=== PATIENT | female | born 1935 | race Caucasian/White ===

== ENCOUNTER → 2016-11-28 | Outpatient (CLI) | payer MEDICARE, BC ==
[2016-11-28 13:07] LABS: Blood Urea Nitrogen 16 mg/dL (7-17); Non-African American GFR(MDRD) >60 (>60 ml/min/1.73 sqM)
--- NOTE | 2016-11-28 14:06 | CT ---
EXAMINATION TYPE: CT abdomen w con DATE OF EXAM: 11/28/2016 1:41 PM COMPARISON: December 19, 2013 HISTORY: Mid abd pain CT DLP: 336.4 mGycm CONTRAST: CT scan of the abdomen is performed with Oral Contrast and with IV Contrast, patient injected with 10 0 mL of Omnipaque 300. FINDINGS: LUNG BASES-: No visible nodule. No infiltrate. LIVER/GB: No calcified gallstones. No space occupying hepatic lesion. Biliary tree is of normal ca liber. PANCREAS: No inflammation. No distinct mass. SPLEEN: No splenic enlargement. No lesion seen. ADRENALS: No nodule. No thickening. KIDNEYS/BLADDER: No hydronephrosis. No nephrolithiasis. No disctinct renal mass. Urinary bladder g rossly unremarkable. BOWEL: Normal appendix. Normal bowel caliber. No inflammation. LYMPH NODES: No greater than 1cm abdominal or pelvic lymph nodes are appreciated. AORTA: No significant abnormality. OSSEOUS STRUCTURES: No significant abnormality is seen. OTHER: No significant additional abnormality is seen. IMPRESSION: 1. No significant abnormality to account for the patient's symptoms.
== END ==
LOC: RADCTMAIN 12:24
PROVIDERS: ATTEND Internal Medicine
DX: R10.84 Generalized abdominal pain (principal)
CPT/HCPCS: 82565; 84520; 74160; Q9967

== ENCOUNTER 2018-08-27 12:29 | Emergency (ER) | payer MEDICARE, BC ==
[2018-08-27] MEDS ORDERED: SODIUM CHLORIDE 0.9% 500 ML 500 ML IV STA (12:48)
--- NOTE | 2018-08-27 12:54 | ED ---
General Adult HPI - General Stated complaint: POSS KIDNEY STONE Time Seen by Provider: 08/27/18 12:30 Source: RN notes reviewed - History of Present Illness Initial comments: This is an 83-year-old female presents emergency Department with left-sided back pain that radiates around to the front a little. Patient started started this morning. Patient states it is like a kidney stone. Patient states that multiple kidney stone hasn't had one for about 5 years. Patient states she got Toradol and Zofran in the ambulance and she feels much better. Patient states the pain was so bad earlier she did vomit times one. She states currently she only has a little pain in the left lower abdomen that does not hurt with palpation but she does not eat in the new pain medicines for it. Patient denies any fever chills patient denies any hematuria. Patient states this is pain. Reminiscent of all her previous kidney stones. Patient denies any chest pain difficult breathing shortness of breath. Patient denies any recent injury or trauma - Related Data Home Medications Medication Instructions Recorded Confirmed Levothyroxine Sodium [Synthroid] 125 mcg PO DAILY 12/19/13 08/27/18 Allergies Allergy/AdvReac Type Severity Reaction Status Date / Time Penicillins Allergy Severe Rash/Hives Verified 08/27/18 13:46 Review of Systems ROS Statement: Those systems with pertinent positive or pertinent negative responses have been documented in the HPI. ROS Other: All systems not noted in ROS Statement are negative. Past Medical History Past Medical History: Thyroid Disorder Additional Past Medical History / Comment(s): Hypothyroid, kidney stones History of Any Multi-Drug Resistant Organisms: None Reported Past Surgical History: Hysterectomy Past Anesthesia/Blood Transfusion Reactions: No Reported Reaction Past Psychological History: No Psychological Hx Reported Smoking Status: Never smoker Past Alcohol Use History: None Reported Past Drug Use History: None Reported General Exam - General Exam Comments Initial Comments: GENERAL: Patient is well-developed and well-nourished. Patient is nontoxic and well- hydrated and is in mild distress. ENT: Neck is soft and supple. No significant lymphadenopathy is noted. Oropharynx is clear. Moist mucous membranes. Neck has full range of motion without eliciting any pain. EYES: The sclera were anicteric and conjunctiva were pink and moist. Extraocular movements were intact and pupils were equal round and reactive to light. Eyelids were unremarkable. PULMONARY: Unlabored respirations. Good breath sounds bilaterally. No audible rales rhonchi or wheezing was noted. CARDIOVASCULAR: There is a regular rate and rhythm without any murmurs gallops or rubs. ABDOMEN: Soft and nontender with normal bowel sounds. No palpable organomegaly was noted. There is no palpable pulsatile mass. SKIN: Skin is clear with no lesions or rashes and otherwise unremarkable. NEUROLOGIC: Patient is alert and oriented x3. Cranial nerves II through XII are grossly intact. Motor and sensory are also intact. Normal speech, volume and content. Symmetrical smile. MUSCULOSKELETAL: Normal extremities with adequate strength and full range of motion. No lower extremity swelling or edema. No calf tenderness. LYMPHATICS: No significant lymphadenopathy is noted PSYCHIATRIC: Normal psychiatric evaluation. Course Vital Signs 08/27/18 12:50 Temperature 97.3 F L Pulse Rate 55 L Respiratory 18 Rate Blood Pressure 161/70 O2 Sat by Pulse 97 Oximetry Medical Decision Making - Medical Decision Making CAT scan shows hydronephrosis mildly on the right and moderately on the left. No obstruction is noted however there is a 3 mm stone in the bladder. I went back to reexamine the patient she stated her pain almost completely resolved. Patient was comfortable going home without any additional pain medicine she says she'll take Motrin and Tylenol at home if she has anymore pain. She will return if there is any severe pain or vomiting. - Lab Data Result diagrams: 08/27/18 12:45 08/27/18 12:45 Lab Results 08/27/18 08/27/18 08/27/18 Range/Units 12:45 12:45 12:45 WBC 6.6 (3.8-10.6) k/uL RBC 4.30 (3.80-5.40) m/uL Hgb 13.7 (11.4-16.0) gm/dL Hct 41.3 (34.0-46.0) % MCV 95.9 (80.0-100.0) fL MCH 31.8 (25.0-35.0) pg MCHC 33.1 (31.0-37.0) g/dL RDW 12.9 (11.5-15.5) % Plt Count 241 (150-450) k/uL Neutrophils % 79 % Lymphocytes % 14 % Monocytes % 4 % Eosinophils % 2 % Basophils % 0 % Neutrophils # 5.3 (1.3-7.7) k/uL Lymphocytes # 0.9 L (1.0-4.8) k/uL Monocytes # 0.3 (0-1.0) k/uL Eosinophils # 0.1 (0-0.7) k/uL Basophils # 0.0 (0-0.2) k/uL Sodium 139 (137-145) mmol/L Potassium 4.9 (3.5-5.1) mmol/L Chloride 108 H (98-107) mmol/L Carbon Dioxide 25 (22-30) mmol/L Anion Gap 6 mmol/L BUN 19 H (7-17) mg/dL Creatinine 0.67 (0.52-1.04) mg/dL Est GFR (CKD-EPI)AfAm >90 (>60 ml/min/1.73 sqM) Est GFR (CKD-EPI)NonAf 82 (>60 ml/min/1.73 sqM) Glucose 126 H (74-99) mg/dL Calcium 8.7 (8.4-10.2) mg/dL Total Bilirubin 0.5 (0.2-1.3) mg/dL AST 19 (14-36) U/L ALT 28 (9-52) U/L Alkaline Phosphatase 50 (38-126) U/L Total Protein 6.1 L (6.3-8.2) g/dL Albumin 3.6 (3.5-5.0) g/dL Amylase 85 (30-110) U/L Lipase 249 (23-300) U/L Urine Color Yellow Urine Appearance Clear (Clear) Urine pH 6.0 (5.0-8.0) Ur Specific [place] 1.016 (1.001-1.035) Urine Protein Negative (Negative) Urine Glucose (UA) Negative (Negative) Urine Ketones Negative (Negative) Urine Blood Small H (Negative) Urine Nitrite Negative (Negative) Urine Bilirubin Negative (Negative) Urine Urobilinogen <2.0 (<2.0) mg/dL Ur Leukocyte Esterase Trace H (Negative) Urine RBC 46 H (0-5) /hpf Urine WBC 3 (0-5) /hpf Ur Squamous Epith Cells <1 (0-4) /hpf Hyaline Casts 1 (0-2) /lpf Urine Mucus Rare H (None) /hpf Disposition Clinical Impression: Renal colic on left side Disposition: HOME SELF-CARE Condition: Good Instructions: Renal Colic (ED) Is patient prescribed a controlled substance at d/c from ED?: No Referrals: Codi Mercedes MD [Primary Care Provider] - 1-2 days Time of Disposition: 14:37
[2018-08-27 12:57] VITALS: RESP 18; TEMP 97.3
[2018-08-27 13:16] LABS: Basophils % (A) 0 %; Eosinophils # (A) 0.1 k/uL (0-0.7); Eosinophils % (A) 2 %; HCT 41.3 % (34.0-46.0); HGB 13.7 gm/dL (11.4-16.0); Lymphocytes # (A) 0.9 k/uL (1.0-4.8); Lymphocytes % (A) 14 %; MCH 31.8 pg (25.0-35.0); MCHC 33.1 g/dL (31.0-37.0); MCV 95.9 fL (80.0-100.0); Mean Platelet Volume 6.3; Monocytes # (A) 0.3 k/uL (0-1.0); Monocytes % (A) 4 %; Neutrophils # (A) 5.3 k/uL (1.3-7.7); Neutrophils % (A) 79 %; Platelet Count 241 k/uL (150-450); RDW 12.9 % (11.5-15.5); WBC 6.6 k/uL (3.8-10.6)
[2018-08-27 13:27] LABS: ALT 28 U/L (9-52); AST 19 U/L (14-36); Albumin 3.6 g/dL (3.5-5.0); Alkaline Phosphatase 50 U/L (38-126); Amylase 85 U/L (30-110); Anion Gap 6 mmol/L; Blood Urea Nitrogen 19 mg/dL (7-17); Calcium 8.7 mg/dL (8.4-10.2); Carbon Dioxide 25 mmol/L (22-30); Chloride 108 mmol/L (98-107); Glucose 126 mg/dL (74-99); Lipase 249 U/L (23-300); Potassium 4.9 mmol/L (3.5-5.1); Sodium 139 mmol/L (137-145); Total Bilirubin 0.5 mg/dL (0.2-1.3); Total Protein 6.1 g/dL (6.3-8.2)
[2018-08-27 13:35] LABS: Appearance,Urine Clear (Clear); Bilirubin,Urine Negative (Negative); Blood,Urine Small (Negative); Color,Urine Yellow; Glucose,Urine (UA) Negative (Negative); Hyaline Casts,Urine 1 /lpf (0-2); Ketones,Urine Negative (Negative); Leukocyte Esterase,Urine Trace (Negative); Mucus,Urine Rare /hpf; Nitrite,Urine Negative (Negative); Protein,Urine Negative (Negative); RBC,Urine 46 /hpf (0-5); Specific Gravity,Urine 1.016 (1.001-1.035); Squamous Epithelial Cell,Urine <1 /hpf (0-4); Urobilinogen,Urine <2.0 mg/dL (<2.0); WBC,Urine 3 /hpf (0-5)
--- NOTE | 2018-08-27 14:01 | CT ---
EXAMINATION TYPE: CT abdomen pelvis wo con DATE OF EXAM: 08/27/2018 COMPARISON: 11/28/2016 INDICATION: Left flank pain DLP: 321.7 mGycm, Automated exposure control for dose reduction was used. CONTRAST: 0 mL of Isovue 300. Study performed without Oral Contrast TECHNIQUE: Axial images were obtained from above the diaphragm to the pubic rami in the axial plane a t 5 mm thick sections. Reconstructed images are reviewed on the computer in the coronal plane. FINDINGS: Limited CT sections are obtained the lung bases. There is a 0.7 cm density in the posterior right agatha ng base with eccentric calcification. This is not a simple granuloma. Short-term follow-up is recomme nded. The calcification was present previously. Density appears to be new. A small hiatal hernia is p resent.. CT ABDOMEN: Liver: Normal Spleen: Normal Pancreas: Normal Adrenal glands: The adrenal glands are normal. Gallbladder: Normal Kidneys: No masses are evident. There is a moderate left hydronephrosis. Mild right hydronephrosis ma y be present. Hydroureter is not identified. Multiple bilateral renal stones are evident without obst ruction. Aorta: Vascular calcification is within the aorta. Inferior vena cava: Normal. CT PELVIS: Loops of bowel within the abdomen and pelvis are normal. Study is without oral contrast limiting the evaluation. Appendix: Normal as visualized. Urinary bladder: There is a 0.3 cm calcification in the inferior lateral left urinary bladder. A rece nt passage of a renal stone should be considered. Genitourinary structures: Uterus and ovaries are not identified. Osseous structures: No suspicious lytic or sclerotic lesions. Facet degenerative changes are through the lumbar spine. IMPRESSIONS: 1. There is mild right and moderate left hydronephrosis. Etiology for obstruction is not evident. Ho wever, calcification within the inferior left urinary bladder could indicate recent passage of a trina l or ureteral stone. 2. Multiple bilateral nonobstructing renal stones. 3. Moderate left and mild right hydronephrosis. 4. A 0.7 cm density with eccentric calcification posterior right lung base. Short-term follow-up is r ecommended with CT chest in 3 months.
--- NOTE | 2018-08-27 14:12 | XR ---
EXAMINATION TYPE: XR KUB DATE OF EXAM: 08/27/2018 CLINICAL DATA: 83-year-old female with abdominal pain, [facility] COMPARISON: 04/01/2014 FINDINGS: Lung bases are clear. No evidence for free intraperitoneal air. Vascular calcifications in the pelvis. Bilateral renal calculi described on CT of the same day not we ll appreciated radiographically. Nonobstructive bowel gas pattern. Mild to moderate stool burden. No dilated small bowel or air-fluid levels. Degenerative changes throughout the spine. Mild degenerative changes at the hips. IMPRESSION: 1. Bilateral renal calculi not well appreciated radiographically. 2. No evidence for bowel obstruction or free air.
[2018-08-27 14:50] VITALS: BP 160/70; PULSE 58
== END 2018-08-27 14:50 | disposition home or self-care (01) ==
LOC: EC 12:29
DX: N23 Unspecified renal colic (principal); N13.2 Hydronephrosis with renal and ureteral calculous obstruction; E03.9 Hypothyroidism, unspecified; Z88.0 Allergy status to penicillin; Z79.899 Other long term (current) drug therapy; Z90.710 Acquired absence of both cervix and uterus
CPT/HCPCS: 36415; 74018; 74176; 80053; 81001; 82150; 83690; 85025; 96360; 96361; 99285

== ENCOUNTER → 2021-09-01 | Outpatient (CLI) | payer MEDICARE, BC ==
--- NOTE | 2021-09-01 14:22 | US ---
EXAMINATION TYPE: US pelvis complete transvag DATE OF EXAM: 09/01/2021 COMPARISON: CT 08/27/2018 CLINICAL HISTORY: 86-year-old female N95.0 postmenopausal Bleeding. PMB. Patient states she had her UT removed, but doesn't know if she still has her ovaries. TECHNIQUE: Transabdominal sonographic images of the pelvis were acquired. Transvaginal sonographic i mages were medically necessary to better assess the following anatomy: Ovaries Date of LMP: Unknown FINDINGS: : 1. Uterus: Surgically absent 2. Endometrium: Surgically absent 3. Right Ovary: Obscured by overlying bowel gas vs surgically absent 4. Left Ovary: Obscured by overlying bowel gas vs surgically absent 5. Bilateral Adnexa: Peristalsing bowel 6. Posterior cul-de-sac: No free fluid 7. Vagina: Echogenic shadowing area measuring 1.0 x 1.3 x 0.9 cm at the vaginal cuff. IMPRESSION: 1. Echogenic shadowing area measuring 1.3 cm at the vaginal cuff probably representing some scar tiss ue. No peristalsis to suggest bowel. Given the patient's vaginal bleeding, recommend direct visualiza tion and consideration to CT of the pelvis to exclude any newly developing abnormality such as neopla sm compared to the 08/27/2018 CT. 2. Neither ovary could be visualized. 3. No pelvic free fluid.
== END | disposition home or self-care (01) ==
LOC: RADUSWWP 10:48
PROVIDERS: ATTEND Internal Medicine
DX: N93.8 Other specified abnormal uterine and vaginal bleeding (principal)
CPT/HCPCS: 76830; 76856

== ENCOUNTER 2023-02-15 13:17 | Emergency (ER) | payer MEDICARE, BC ==
[2023-02-15 13:43] VITALS: TEMP 98.2
--- NOTE | 2023-02-15 14:38 | ED ---
Extremity Problem HPI - General Chief complaint: Extremity Problem,Nontraumatic Stated complaint: Rt foot injury Time Seen by Provider: 02/15/23 14:12 Source: patient, RN notes reviewed Mode of arrival: ambulatory Limitations: no limitations - History of Present Illness Initial comments: 87-year-old female presents emergency department for right foot pain. Patient states has been bothersome since Sunday. Patient states it hurts more in the morning. She states is swollen, slightly red and medial aspect. No trauma no fevers or chills no history of gout denies any calf pain no calf swelling. - Related Data Home Medications Medication Instructions Recorded Confirmed Levothyroxine Sodium [Synthroid] 125 mcg PO DAILY 12/19/13 08/27/18 Allergies Allergy/AdvReac Type Severity Reaction Status Date / Time Penicillins Allergy Severe Rash/Hives Verified 02/15/23 13:42 Review of Systems ROS Statement: Those systems with pertinent positive or pertinent negative responses have been documented in the HPI. ROS Other: All systems not noted in ROS Statement are negative. Past Medical History Past Medical History: Thyroid Disorder Additional Past Medical History / Comment(s): Hypothyroid, kidney stones History of Any Multi-Drug Resistant Organisms: None Reported Past Surgical History: Hysterectomy Past Anesthesia/Blood Transfusion Reactions: No Reported Reaction Past Psychological History: No Psychological Hx Reported Smoking Status: Never smoker Past Alcohol Use History: None Reported Past Drug Use History: None Reported General Exam Limitations: no limitations General appearance: alert, in no apparent distress Head exam: Present: atraumatic, normocephalic, normal inspection Respiratory exam: Present: normal lung sounds bilaterally. Absent: respiratory distress, wheezes, rales, rhonchi, stridor Cardiovascular Exam: Present: regular rate, normal rhythm, normal heart sounds. Absent: systolic murmur, diastolic murmur, rubs, gallop, clicks Extremities exam: Present: other (Right foot there is mild tenderness on the medial aspect there is an area of erythema and increased warmth there pedal pulses equal bilaterally, cap refill less than 2 seconds full range of motion of the foot, ankle ). Absent: calf tenderness Course Vital Signs 02/15/23 13:39 Temperature 98.2 F Pulse Rate 51 L Respiratory 20 Rate Blood Pressure 150/58 O2 Sat by Pulse 98 Oximetry Medical Decision Making - Medical Decision Making Was pt. sent in by a medical professional or institution (KAJAL Gordon, AIR QUALITY TECHNICIAN, urgent care, hospital, or intermediate...) When possible be specific @ -No Did you speak to anyone other than the patient for history (EMS, parent, family, police, friend...)? What history was obtained from this source @ -No Did you review nursing and triage notes (agree or disagree)? Why? @ -I reviewed and agree with nursing and triage notes Were old charts reviewed (outside hosp., previous admission, EMS record, old EKG, old radiological studies, urgent care reports/EKG's, intermediate records)? Report findings @ -No old charts were reviewed Differential Diagnosis (chest pain, altered mental status, abdominal pain women, abdominal pain men, vaginal bleeding, weakness, fever, dyspnea, syncope, headache, dizziness, GI bleed, back pain, seizure, CVA, palpatations, mental health, musculoskeletal)? @ -Gout, pseudogout, inflammatory arthritis, cellulitis EKG interpreted by me (3pts min.). @ -None X-rays interpreted by me (1pt min.). @ -X-ray shows no acute fracture dislocation foot CT interpreted by me (1pt min.). @ -None done U/S interpreted by me (1pt. min.). @ -None done What testing was considered but not performed or refused? (CT, X-rays, U/S, labs)? Why? @ -None What meds were considered but not given or refused? Why? @ -None Did you discuss the management of the patient with other professionals (professionals i.e. KAJAL Gordon, AIR QUALITY TECHNICIAN, lab, RT, psych nurse, social media marketing specialist, box stacker, teacher, first aid officer, welfare case worker)? Give summary @ -No Was smoking cessation discussed for >3mins.? @ -No Was critical care preformed (if so, how long)? @ -No Were there social determinants of health that impacted care today? How? (Homelessness, low income, unemployed, alcoholism, drug addiction, transportation, low edu. Level, literacy, decrease access to med. care, intermediate, rehab)? @ -No Was there de-escalation of care discussed even if they declined (Discuss DNR or withdrawal of care, Hospice)? DNR status @ -No What co-morbidities impacted this encounter? (DM, HTN, Smoking, COPD, CAD, Cancer, CVA, ARF, Chemo, Hep., AIDS, mental health diagnosis, sleep apnea, morbid obesity)? @ -None Was patient admitted / discharged? Hospital course, mention meds given and route, prescriptions, significant lab abnormalities, going to OR and other pertinent info. @ -Discharged patient's laboratory studies are unremarkable patient may have inflammatory arthritis discussed possibility of pseudo-gout. Patient discharged in stable condition. Return parameters were discussed. Undiagnosed new problem with uncertain prognosis? @ -No Drug Therapy requiring intensive monitoring for toxicity (Heparin, Nitro, Insulin, Cardizem)? @ -No Were any procedures done? @ -No Diagnosis/symptom? @ -Inflammatory arthritis, Acute, or Chronic, or Acute on Chronic? @ -Acute Uncomplicated (without systemic symptoms) or Complicated (systemic symptoms)? @ -Uncomplicated Side effects of treatment? @ -No Exacerbation, Progression, or Severe Exacerbation? @ -No Poses a threat to life or bodily function? How? (Chest pain, [place], [place], pneumonia, PE, COPD, DKA, ARF, appy, cholecystitis, CVA, Diverticulitis, Homicidal, Suicidal, threat to staff... and all critical care pts) @ -No - Lab Data Result diagrams: 02/15/23 14:35 02/15/23 14:35 Lab Results 02/15/23 02/15/23 Range/Units 14:35 14:35 WBC 6.1 (3.8-10.6) k/uL RBC 3.82 (3.80-5.40) m/uL Hgb 12.1 (11.4-16.0) gm/dL Hct 36.0 (34.0-46.0) % MCV 94.2 (80.0-100.0) fL MCH 31.7 (25.0-35.0) pg MCHC 33.7 (31.0-37.0) g/dL RDW 13.4 (11.5-15.5) % Plt Count 289 (150-450) k/uL MPV 6.6 Neutrophils % 63 % Lymphocytes % 25 % Monocytes % 7 % Eosinophils % 3 % Basophils % 1 % Neutrophils # 3.9 (1.3-7.7) k/uL Lymphocytes # 1.6 (1.0-4.8) k/uL Monocytes # 0.4 (0-1.0) k/uL Eosinophils # 0.2 (0-0.7) k/uL Basophils # 0.0 (0-0.2) k/uL Sodium 135 L (137-145) mmol/L Potassium 4.3 (3.5-5.1) mmol/L Chloride 105 (98-107) mmol/L Carbon Dioxide 26 (22-30) mmol/L Anion Gap 4 mmol/L BUN 17 (7-17) mg/dL Creatinine 0.80 (0.52-1.04) mg/dL Est GFR (CKD-EPI)AfAm 77 (>60 ml/min/1.73 sqM) Est GFR (CKD-EPI)NonAf 67 (>60 ml/min/1.73 sqM) Glucose 96 (74-99) mg/dL Uric Acid 3.8 (3.7-7.4) mg/dL Calcium 8.8 (8.4-10.2) mg/dL Total Bilirubin 0.4 (0.2-1.3) mg/dL AST 27 (14-36) U/L ALT 23 (4-34) U/L Alkaline Phosphatase 67 (38-126) U/L C-Reactive Protein 2.0 H (<1.0) mg/dL Total Protein 6.0 L (6.3-8.2) g/dL Albumin 3.2 L (3.5-5.0) g/dL Disposition Clinical Impression: Inflammatory arthritis Disposition: HOME SELF-CARE Condition: Stable Instructions (If sedation given, give patient instructions): Gout (ED), Arthritis (ED) Additional Instructions: Please return to the Emergency Department if symptoms worsen or any other concerns. Is patient prescribed a controlled substance at d/c from ED?: No Referrals: Codi Mercedes MD [Primary Care Provider] - 1-2 days Time of Disposition: 16:03
[2023-02-15 14:52] LABS: Basophils % (A) 1 %; Eosinophils # (A) 0.2 k/uL (0-0.7); Eosinophils % (A) 3 %; HGB 12.1 gm/dL (11.4-16.0); Lymphocytes # (A) 1.6 k/uL (1.0-4.8); Lymphocytes % (A) 25 %; MCH 31.7 pg (25.0-35.0); MCHC 33.7 g/dL (31.0-37.0); MCV 94.2 fL (80.0-100.0); Mean Platelet Volume 6.6; Monocytes # (A) 0.4 k/uL (0-1.0); Monocytes % (A) 7 %; Neutrophils # (A) 3.9 k/uL (1.3-7.7); Neutrophils % (A) 63 %; Platelet Count 289 k/uL (150-450); RBC 3.82 m/uL (3.80-5.40); RDW 13.4 % (11.5-15.5); WBC 6.1 k/uL (3.8-10.6)
--- NOTE | 2023-02-15 14:57 | XR ---
EXAMINATION TYPE: XR foot complete RT DATE OF EXAM: 02/15/2023 COMPARISON: NONE HISTORY: Pain TECHNIQUE: Frontal, lateral and oblique images of the right foot are obtained. FINDINGS: There is no acute fracture/dislocation evident. No osseous erosions. Hammertoe deformities of the second through fourth digits with PIP flexion. No significant joint space narrowing. The over lying soft tissue appears unremarkable. IMPRESSION: There is no acute fracture or dislocation seen.
[2023-02-15 15:11] LABS: ALT 23 U/L (4-34); AST 27 U/L (14-36); African American GFR (CKD) 77 (>60 ml/min/1.73 sqM); Albumin 3.2 g/dL (3.5-5.0); Alkaline Phosphatase 67 U/L (38-126); Anion Gap 4 mmol/L; Blood Urea Nitrogen 17 mg/dL (7-17); Calcium 8.8 mg/dL (8.4-10.2); Carbon Dioxide 26 mmol/L (22-30); Chloride 105 mmol/L (98-107); Glucose 96 mg/dL (74-99); Non-African American GFR(CKD) 67 (>60 ml/min/1.73 sqM); Potassium 4.3 mmol/L (3.5-5.1); Sodium 135 mmol/L (137-145); Total Bilirubin 0.4 mg/dL (0.2-1.3); Uric Acid 3.8 mg/dL (3.7-7.4)
[2023-02-15 16:13] VITALS: BP 147/60; PULSE 52; RESP 18
== END 2023-02-15 16:09 | disposition home or self-care (01) ==
LOC: EC 13:17
DX: M00.9 Pyogenic arthritis, unspecified (principal); E07.9 Disorder of thyroid, unspecified; Z88.0 Allergy status to penicillin; Z79.890 Hormone replacement therapy
CPT/HCPCS: 36415; 80053; 84550; 85025; 86140; 99284

== ENCOUNTER 2023-03-30 10:37 | Inpatient (IN) | payer MEDICARE, BC ==
[2023-03-30 10:41] LABS: Glucose,Whole Blood 108 mg/dL (70-110)
--- NOTE | 2023-03-30 10:56 | CT ---
EXAMINATION TYPE: CT brain wo con DATE OF EXAM: 03/30/2023 COMPARISON: None HISTORY: Code stroke, dysarthria, confusion CT DLP: 1177.[address] of the brain was performed. The ventricles, basal cisterns and sulci overlying the cerebral convexities demonstrate mild enlargem ent. There is no evidence for intracranial hemorrhage or sulcal effacement. There is decreased attenuation about the periventricular white matter and deep white matter of both c erebral hemispheres, compatible with chronic small vessel ischemia. Differential diagnosis does inclu de demyelination. No mass effects are seen.No midline shift. Physiologic calcification left basal ganglia. Osseous calvarium is intact. If symptoms persist consider MRI. IMPRESSION: 1. Age related atrophic and chronic small vessel ischemic change without acute intracranial process s een at this time.
[2023-03-30 11:02] LABS: Basophils % (A) 1 %; Eosinophils # (A) 0.1 k/uL (0-0.7); Eosinophils % (A) 2 %; HCT 35.1 % (34.0-46.0); Lymphocytes # (A) 1.5 k/uL (1.0-4.8); Lymphocytes % (A) 23 %; MCH 31.5 pg (25.0-35.0); MCHC 34.3 g/dL (31.0-37.0); MCV 91.8 fL (80.0-100.0); Monocytes # (A) 0.4 k/uL (0-1.0); Monocytes % (A) 5 %; Neutrophils # (A) 4.4 k/uL (1.3-7.7); Neutrophils % (A) 68 %; Platelet Count 275 k/uL (150-450); RBC 3.82 m/uL (3.80-5.40); RDW 13.1 % (11.5-15.5); WBC 6.4 k/uL (3.8-10.6)
--- NOTE | 2023-03-30 11:12 | XR ---
EXAMINATION TYPE: XR chest 2V DATE OF EXAM: 03/30/2023 COMPARISON: NONE HISTORY: Shortness of breath TECHNIQUE: Frontal and lateral views of the chest are obtained. FINDINGS: Scattered senescent parenchymal changes noted. Hyperinflation compatible with COPD. No evidence for infiltrate. No evidence for atelectasis. Heart size is stable. Mediastinal structures are stable and grossly unremarkable. No evidence for hilar prominence. Degenerative changes dorsal spine. IMPRESSION: 1. No evidence for acute pulmonary disease.
[2023-03-30 11:13] LABS: ALT 34 U/L (4-34); AST 35 U/L (14-36); African American GFR (CKD) >90 (>60 ml/min/1.73 sqM); Albumin 3.4 g/dL (3.5-5.0); Alkaline Phosphatase 88 U/L (38-126); Anion Gap 8 mmol/L; Blood Urea Nitrogen 16 mg/dL (7-17); Calcium 8.6 mg/dL (8.4-10.2); Carbon Dioxide 23 mmol/L (22-30); Chloride 101 mmol/L (98-107); Creatine Kinase 97 U/L (30-135); Glucose 100 mg/dL (74-99); Non-African American GFR(CKD) 86 (>60 ml/min/1.73 sqM); Partial Thromboplastin Time 31.9 sec (22.0-30.0); Potassium 4.5 mmol/L (3.5-5.1); Prothrombin Time 10.1 sec (9.0-12.0); Sodium 132 mmol/L (137-145); Total Bilirubin 0.8 mg/dL (0.2-1.3); Total Protein 6.3 g/dL (6.3-8.2)
--- NOTE | 2023-03-30 11:37 | ED ---
General Adult HPI - General Chief complaint: Neuro Symptoms/Deficit Stated complaint: POSS CVA Time Seen by Provider: 03/30/23 10:45 Source: EMS Mode of arrival: EMS Limitations: no limitations - History of Present Illness Initial comments: 88-year-old female past history of hypothyroid who presents to the emergency department with altered mental status. She lives with her daughter. It is reported to the patient's normally communicates without difficulty and ambulates on her own. She went about her normal self last night however the time is unknown. Today the patient seemed confused and the confusion seemed to be getting worse. The daughter called EMS and brought the patient to the hospital. There was concern for stroke as the patient has some aphasia. No history of stroke. No lateralizing weakness. She is not on any blood thinners. No history of any head trauma. No fevers. Patient states that she knows what she wants to say however it is not coming out correctly. She recently was started on indomethacin for a gout flare on the seventh. No other alleviating, precipitating modifying factors - Related Data Home Medications Medication Instructions Recorded Confirmed Indomethacin [Indocin] 50 mg PO BID 03/30/23 03/30/23 Levothyroxine Sodium [Synthroid] 112 mcg PO DIRECTED 03/30/23 03/30/23 Allergies Allergy/AdvReac Type Severity Reaction Status Date / Time Penicillins Allergy Severe Rash/Hives Verified 03/30/23 12:01 Review of Systems ROS Statement: Those systems with pertinent positive or pertinent negative responses have been documented in the HPI. ROS Other: All systems not noted in ROS Statement are negative. Past Medical History Past Medical History: Thyroid Disorder Additional Past Medical History / Comment(s): Hypothyroid, kidney stones History of Any Multi-Drug Resistant Organisms: None Reported Past Surgical History: Hysterectomy Past Anesthesia/Blood Transfusion Reactions: No Reported Reaction Past Psychological History: No Psychological Hx Reported Smoking Status: Never smoker Past Alcohol Use History: None Reported Past Drug Use History: None Reported General Exam Limitations: altered mental status General appearance: alert, in no apparent distress Head exam: Present: atraumatic, normocephalic, normal inspection Eye exam: Present: normal appearance, PERRL, EOMI. Absent: scleral icterus, conjunctival injection, periorbital swelling ENT exam: Present: normal exam, mucous membranes moist Neck exam: Present: normal inspection. Absent: tenderness, meningismus, lymphadenopathy Respiratory exam: Present: normal lung sounds bilaterally. Absent: respiratory distress, wheezes, rales, rhonchi, stridor Cardiovascular Exam: Present: regular rate, normal rhythm, normal heart sounds. Absent: systolic murmur, diastolic murmur, rubs, gallop, clicks GI/Abdominal exam: Present: soft, normal bowel sounds. Absent: distended, tenderness, guarding, rebound, rigid Extremities exam: Present: normal inspection, full ROM, normal capillary refill. Absent: tenderness, pedal edema, joint swelling, calf tenderness Back exam: Present: normal inspection Neurological exam: Present: alert, altered, CN II-XII intact, other (Oriented only to self. Has equal pipe fitter street service strength bilaterally. Face is symmetric. Mild dysarthria. Significant expressive aphasia) Psychiatric exam: Present: normal affect, normal mood Skin exam: Present: warm, dry, intact, normal color. Absent: rash Course Vital Signs 03/30/23 03/30/23 03/30/23 10:41 11:30 12:00 Temperature 98.0 F Pulse Rate 61 60 66 Respiratory 18 Rate Blood Pressure 199/73 167/73 185/75 O2 Sat by Pulse 98 97 99 Oximetry 03/30/23 03/30/23 12:30 14:37 Temperature 98.2 F Pulse Rate 68 69 Respiratory 16 Rate Blood Pressure 175/87 173/78 O2 Sat by Pulse 97 96 Oximetry Medical Decision Making - Medical Decision Making Was pt. sent in by a medical professional or institution (KAJAL Gordon, [employer]PER[employer], urgent care, hospital, or [place] health care facility...) When possible be specific @ -No Did you speak to anyone other than the patient for history (EMS, parent, family, police, friend...)? What history was obtained from this source @ -EMS provided history as well as the patient's son Did you review nursing and triage notes (agree or disagree)? Why? @ -I reviewed and agree with nursing and triage notes Were old charts reviewed (outside hosp., previous admission, EMS record, old EKG, old radiological studies, urgent care reports/EKG's, [place] health care facility records)? Report findings @ -No old charts were reviewed Differential Diagnosis (chest pain, altered mental status, abdominal pain women, abdominal pain men, vaginal bleeding, weakness, fever, dyspnea, syncope, headache, dizziness, GI bleed, back pain, seizure, CVA, palpatations, mental health, musculoskeletal)? @ -Differential Altered Mental Status: Hypoglycemia, DKA, hypercapnia, ETOH, overdose, CO poisoning, trauma, myxedema coma, HTN encephalopathy, infection, encephalitis, psychosis, intercranial hemorrhage, hepatic encephalopathy, meningitis, CVA, this is not meant to be an all-inclusive list EKG interpreted by me (3pts min.). @ -Yes and demonstrates sinus rhythm with rate 62. HI interval 216. QRS 86. QTC of 437. No acute ST segment elevation or depression X-rays interpreted by me (1pt min.). @ -Yes and demonstrates no acute process CT interpreted by me (1pt min.). @ -Yes and demonstrates no acute intracranial process U/S interpreted by me (1pt. min.). @ -None done What testing was considered but not performed or refused? (CT, X-rays, U/S, labs)? Why? @ -None What meds were considered but not given or refused? Why? @ -None Did you discuss the management of the patient with other professionals (professionals i.e. , PA, [employer], lab, RT, psych nurse, social media marketing specialist, bullion weigher, teacher, juvenile officer, counter caser)? Give summary @ -Spoke with Dr. Parra in regards to the patient's symptoms. He does evaluate the patient's CT and states that she has no large vessel occlusion. Treatment will be aspirin and statin Was smoking cessation discussed for >3mins.? @ -No Was critical care preformed (if so, how long)? @ -Yes, 35 minutes for stroke activation Were there social determinants of health that impacted care today? How? (Homelessness, low income, unemployed, alcoholism, drug addiction, transportation, low edu. Level, literacy, decrease access to med. care, half-way, rehab)? @ -No Was there de-escalation of care discussed even if they declined (Discuss DNR or withdrawal of care, Hospice)? DNR status @ -No What co-morbidities impacted this encounter? (DM, HTN, Smoking, COPD, CAD, Cancer, CVA, ARF, Chemo, Hep., AIDS, mental health diagnosis, sleep apnea, morbi d obesity)? @ -Hypothyroid Was patient admitted / discharged? Hospital course, mention meds given and route, prescriptions, significant lab abnormalities, going to OR and other pertinent info. @ -On arrival patient was evaluated in the hallway. She does have expressive aphasia with unknown last known well. We did activate a code stroke. Patient does go for CT and CT angiography of her head. I spoke with Dr. Parra in regards to the patient. Laboratory studies are conducted. CT is negative for acute stroke. Recommended admission for antibiotics for her abnormal UA. Recommend neurology consultation for aphasia with concern for CVA. Patient is given a [place] as indomethacin will be avoided due to recent alteration in level of consciousness after the medication was started. Patient and family at bedside were agreeable to this and the patient is admitted in stable condition Undiagnosed new problem with uncertain prognosis? @ -Yes Drug Therapy requiring intensive monitoring for toxicity (Heparin, Nitro, Insulin, Cardizem)? @ -No Were any procedures done? @ -No Diagnosis/symptom? @ -Acute expressive aphasia, suspected CVA, accelerated hypertension Acute, or Chronic, or Acute on Chronic? @ -Acute Uncomplicated (without systemic symptoms) or Complicated (systemic symptoms)? @ -Complicated Side effects of treatment? @ -No Exacerbation, Progression, or Severe Exacerbation? @ -No Poses a threat to life or bodily function? How? (Chest pain, USA, CO, pneumonia, PE, COPD, DKA, ARF, appy, cholecystitis, CVA, Diverticulitis, Homicidal, Suicidal, threat to staff... and all critical care pts) @ -No - Lab Data Result diagrams: 03/30/23 10:47 03/30/23 10:47 Lab Results 03/30/23 03/30/23 03/30/23 Range/Units 10:40 10:47 10:47 WBC 6.4 (3.8-10.6) k/uL RBC 3.82 (3.80-5.40) m/uL Hgb 12.0 (11.4-16.0) gm/dL Hct 35.1 (34.0-46.0) % MCV 91.8 (80.0-100.0) fL MCH 31.5 (25.0-35.0) pg MCHC 34.3 (31.0-37.0) g/dL RDW 13.1 (11.5-15.5) % Plt Count 275 (150-450) k/uL MPV 7.0 Neutrophils % 68 % Lymphocytes % 23 % Monocytes % 5 % Eosinophils % 2 % Basophils % 1 % Neutrophils # 4.4 (1.3-7.7) k/uL Lymphocytes # 1.5 (1.0-4.8) k/uL Monocytes # 0.4 (0-1.0) k/uL Eosinophils # 0.1 (0-0.7) k/uL Basophils # 0.0 (0-0.2) k/uL PT 10.1 (9.0-12.0) sec INR 1.0 (<1.2) APTT 31.9 H (22.0-30.0) sec Sodium (137-145) mmol/L Potassium (3.5-5.1) mmol/L Chloride (98-107) mmol/L Carbon Dioxide (22-30) mmol/L Anion Gap mmol/L BUN (7-17) mg/dL Creatinine (0.52-1.04) mg/dL Est GFR (CKD-EPI)AfAm (>60 ml/min/1.73 sqM) Est GFR (CKD-EPI)NonAf (>60 ml/min/1.73 sqM) Glucose (74-99) mg/dL POC Glucose (mg/dL) 108 (70-110) mg/dL POC Glu Wet Pour Mixer ID Alexandre Harris Calcium (8.4-10.2) mg/dL Total Bilirubin (0.2-1.3) mg/dL AST (14-36) U/L ALT (4-34) U/L Alkaline Phosphatase (38-126) U/L Creatine Kinase (30-135) U/L Troponin I (0.000-0.034) ng/mL Total Protein (6.3-8.2) g/dL Albumin (3.5-5.0) g/dL TSH (0.465-4.680) mIU/L Urine Color Urine Appearance (Clear) Urine pH (5.0-8.0) Ur Specific [place] (1.001-1.035) Urine Protein (Negative) Urine Glucose (UA) (Negative) Urine Ketones (Negative) Urine Blood (Negative) Urine Nitrite (Negative) Urine Bilirubin (Negative) Urine Urobilinogen (<2.0) mg/dL Ur Leukocyte Esterase (Negative) Urine RBC (0-5) /hpf Urine WBC (0-5) /hpf Urine WBC Clumps (None) /hpf Ur Squamous Epith Cells (0-4) /hpf Urine Bacteria (None) /hpf 03/30/23 03/30/23 03/30/23 Range/Units 10:47 10:47 12:15 WBC (3.8-10.6) k/uL RBC (3.80-5.40) m/uL Hgb (11.4-16.0) gm/dL Hct (34.0-46.0) % MCV (80.0-100.0) fL MCH (25.0-35.0) pg MCHC (31.0-37.0) g/dL RDW (11.5-15.5) % Plt Count (150-450) k/uL MPV Neutrophils % % Lymphocytes % % Monocytes % % Eosinophils % % Basophils % % Neutrophils # (1.3-7.7) k/uL Lymphocytes # (1.0-4.8) k/uL Monocytes # (0-1.0) k/uL Eosinophils # (0-0.7) k/uL Basophils # (0-0.2) k/uL PT (9.0-12.0) sec INR (<1.2) APTT (22.0-30.0) sec Sodium 132 L (137-145) mmol/L Potassium 4.5 (3.5-5.1) mmol/L Chloride 101 (98-107) mmol/L Carbon Dioxide 23 (22-30) mmol/L Anion Gap 8 mmol/L BUN 16 (7-17) mg/dL Creatinine 0.52 (0.52-1.04) mg/dL Est GFR (CKD-EPI)AfAm >90 (>60 ml/min/1.73 sqM) Est GFR (CKD-EPI)NonAf 86 (>60 ml/min/1.73 sqM) Glucose 100 H (74-99) mg/dL POC Glucose (mg/dL) (70-110) mg/dL POC Glu Wet Pour Mixer ID Calcium 8.6 (8.4-10.2) mg/dL Total Bilirubin 0.8 (0.2-1.3) mg/dL AST 35 (14-36) U/L ALT 34 (4-34) U/L Alkaline Phosphatase 88 (38-126) U/L Creatine Kinase 97 (30-135) U/L Troponin I <0.012 (0.000-0.034) ng/mL Total Protein 6.3 (6.3-8.2) g/dL Albumin 3.4 L (3.5-5.0) g/dL TSH 3.990 (0.465-4.680) mIU/L Urine Color Colorless Urine Appearance Cloudy H (Clear) Urine pH 6.0 (5.0-8.0) Ur Specific [place] 1.025 (1.001-1.035) Urine Protein Negative (Negative) Urine Glucose (UA) Negative (Negative) Urine Ketones Negative (Negative) Urine Blood Moderate H (Negative) Urine Nitrite Negative (Negative) Urine Bilirubin Negative (Negative) Urine Urobilinogen <2.0 (<2.0) mg/dL Ur Leukocyte Esterase Large H (Negative) Urine RBC 15 H (0-5) /hpf Urine WBC 158 H (0-5) /hpf Urine WBC Clumps Few H (None) /hpf Ur Squamous Epith Cells 1 (0-4) /hpf Urine Bacteria Rare H (None) /hpf Disposition Clinical Impression: Cerebrovascular accident (CVA), Aphasia Disposition: ADMITTED IP TO THIS [facility] Condition: Serious Is patient prescribed a controlled substance at d/c from ED?: No Time of Disposition: 13:20 Decision to Admit Reason: Admit from EC Decision Date: 03/30/23 Decision Time: 13:20
--- NOTE | 2023-03-30 11:48 | CT ---
EXAMINATION TYPE: CT angio head neck DATE OF EXAM: 03/30/2023 COMPARISON: CT brain same day HISTORY: 88-year-old female Code stroke, dysarthria, confusion. TECHNIQUE: Contiguous axial scanning of the head and neck performed with IV Contrast, patient injecte d with 100 mL of Isovue 370. Coronal/sagittal MIP reconstructions performed. 3-D reconstructions gene rated on a dedicated independent workstation. CT DLP: 346.8 mGycm Automated exposure control for dose reduction was used. FINDINGS: Neck: Possible underlying prominent but nonenlarged mediastinal lymph nodes measuring up to 9 mm. There is aberrant right subclavian artery then takes a retroesophageal course. There is a dominant right vertebral artery. The left vertebral artery has an early takeoff from the l eft subclavian artery. Both vertebral arteries are patent throughout their course. The right common carotid artery is patent. There is mild atherosclerotic change at the right carotid bifurcation with mild, less than 25% narrow ing proximal right ICA. The left common carotid artery is patent. Mild atherosclerotic change at the left carotid bifurcation with no significant narrowing at the left ICA. The patient is swallowing during this study obscuring the hypopharynx. Extensive biapical pleural-par enchymal scarring. Head: Dominant right vertebral artery. Mild narrowing distal V4 segment left vertebral artery. Mild narrowing distal basilar artery There is a hypoplastic P1 segment left HOUSETRAILER SERVICER in combination with a small but patent left posterior comm unicating artery supplying the remainder of the left posterior cerebral artery. Remainder of the posterior circulation appears patent. There is atherosclerotic change throughout the bilateral carotid siphons. Mild diffuse narrowing of t he right internal carotid artery. Hypoplastic A1 segment right anterior cerebral artery. Anterior circulation otherwise patent. IMPRESSION: NECK: 1. MILD ATHEROSCLEROTIC CHANGE AT THE BILATERAL CAROTID BIFURCATIONS. MILD, LESS THAN 25% PROXIMAL RI GHT ICA STENOSIS. 2. 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 3. Dominant right vertebral artery. 4. A few borderline sized lymph nodes in the visualized upper mediastinum measuring up to 9 mm. HEAD: 1. Mild stenosis distal V4 segment left vertebral artery and distal basilar artery. 2. Hypoplastic P1 segment left HOUSETRAILER SERVICER in combination with a small but patent left posterior communicatin g artery supplying the left HOUSETRAILER SERVICER. 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 3. Mild diffuse narrowing of the right internal carotid artery and hypoplastic A1 segment right JENNIFER. 4. No large vessel intracranial arterial occlusion or aneurysmal changes seen.
[2023-03-30 12:51] LABS: Appearance,Urine Cloudy (Clear); Bacteria,Urine Rare /hpf; Bilirubin,Urine Negative (Negative); Blood,Urine Moderate (Negative); Color,Urine Colorless; Glucose,Urine (UA) Negative (Negative); Ketones,Urine Negative (Negative); Leukocyte Esterase,Urine Large (Negative); Nitrite,Urine Negative (Negative); Protein,Urine Negative (Negative); RBC,Urine 15 /hpf (0-5); Specific Gravity,Urine 1.025 (1.001-1.035); Squamous Epithelial Cell,Urine 1 /hpf (0-4); Urobilinogen,Urine <2.0 mg/dL (<2.0); WBC,Urine 158 /hpf (0-5)
[2023-03-30] MEDS ORDERED: ASPIRIN 325 MG TAB PO STA (13:20)
[2023-03-30] MEDS ORDERED: cefTRIAXone IN SWFI 1,000 MG/10 ML SYRINGE IVP STA (13:29)
[2023-03-30] MEDS ORDERED: HYDROcodone/APAP 5-325MG 1 EACH TAB PO STA (14:17)
[2023-03-30] MEDS ORDERED: ACETAMINOPHEN TAB 500 MG TAB PO PRN (17:28)
[2023-03-30] MEDS: THIAMINE 100 MG TAB PO SCH (18:21)
--- NOTE | 2023-03-30 18:48 | XR ---
EXAMINATION TYPE: XR AP view pelvis and 2 views each hip DATE OF EXAM: 03/30/2023 COMPARISON: NONE HISTORY: 88-year-old female pain and altered mental status, confusion FINDINGS: Osteopenia. [id number] degenerative change of both hips with axial joint space narrowing and ma rginal spurring. Prominent degenerative change lower lumbar spine. Limited by the degree of osteopeni a. No displaced fracture is seen. IMPRESSION: [id number] bilateral hip OA. Limited by osteopenia. No displaced fracture seen.
--- NOTE | 2023-03-30 19:52 | HP ---
HISTORY AND PHYSICAL CHIEF COMPLAINT: Change in mental status. HISTORY OF PRESENT ILLNESS: This is an 88-year-old woman with a past medical history of multiple medical problems, admitted with confusion and change in mental status. The patient is also complaining of some back pain, which is mainly in the gluteal region. The patient was admitted for further evaluation and treatment. A CT scan of the brain did not show any acute abnormality. There is no history of any fever, rigor, or chills at this time. PAST MEDICAL HISTORY: Reviewed includes thyroid problems. Rest of the history and rest of the chart are also reviewed. HOME MEDICATIONS: Reviewed include Synthroid. ALLERGIES: Penicillin. FAMILY HISTORY: Could not be taken because of the patient's change in mental status. SOCIAL HISTORY: Could not be taken because of the patient's change in mental status. REVIEW OF SYSTEMS: Could not be taken because of the patient's change in mental status. PHYSICAL EXAMINATION: VITAL SIGNS: Pulse is 69, blood pressure 173/70, respirations 16. HEENT: Conjunctivae are normal. NECK: No jugular venous distention. CARDIOVASCULAR: S1 and S2 muffled. RESPIRATORY: Breath sounds diminished at the bases. No rhonchi. No crackles. ABDOMEN: Soft and nontender. LEGS: No edema. NERVOUS SYSTEM: Nonfocal. MUSCULOSKELETAL: Examination of the back and gluteal region, some tenderness present. SLR is negative. LABORATORY DATA: Reviewed. Sodium 132. UA, possible UTI. IMAGING STUDIES: CAT scan reviewed personally. ASSESSMENT: 1. Change in mental status with possibly acute metabolic encephalopathy. 2. Possible urinary tract infection with sepsis present on admission. 3. Back pain, possibly musculoskeletal. 4. Hypothyroidism. 5. History of nephrolithiasis. 6. History of gout. RECOMMENDATIONS AND DISCUSSION: In this 88-year-old woman presented with multiple complex medical issues, we will monitor the patient closely. Recommend to continue current medications. Continue symptomatic treatment. Otherwise, we will initiate symptomatic treatment of the pain and resume the home medications. I would also recommend x-ray of the pelvis and PT and OT evaluation. Guarded prognosis. Further recommendations to follow. The patient also had a history of gout. I would also recommend the serum uric acid. MMODL / IJN: [id number] /
[2023-03-30] MEDS: HYDROcodone/APAP 5-325MG 1 EACH TAB PO PRN (20:40)
[2023-03-30] MEDS: HEPARIN SODIUM,PORCINE 5,000 UNIT/ML 1 ML VIAL SQ SCH (20:40)
[2023-03-30] MEDS: ATORVASTATIN 80 MG TAB PO SCH (20:41)
[2023-03-30] MEDS ORDERED: INDOMETHACIN 25 MG CAP PO SCH (21:00)
--- NOTE | 2023-03-31 01:15 | P.CNNES ---
History of Present Illness Consult date: 03/30/23 Requesting physician: Yohana Torres Reason for Consult: suspected cva, encephalopathy, aphasia History of Present Illness: Patient is a 88-year-old right-handed female came to the hospital by ambulance today at 10:37 AM for possible CVA. Patient lives with her daughter. Patient's daughter states that she woke up at 8 or 9 AM and was completely disoriented, couldn't talk, couldn't make sense, couldn't understand what someone was saying to her. She would start sentence clear, but then stumble and then gets garbled. She would start sentence "I need----", and then stopped in the mid sentence. She would slur, jumble of wrong words. Patient's daughter did not notice any facial droop, any focal weakness, numbness or tingling. It appeared patient could not see well to the left side. Patient also has been complaining of left buttock pain. She does have history of kidney stones long time ago. Patient's daughter states that at baseline she is very well articulate, although she may have some word finding problems at times. She has no obvious dementia. She usually uses cane for walking started recently. Before she used to walk without any device. Patient's last known well was last night before she went to bed. EMS flow sheet not available in the chart. Vital signs arrival blood pressure 199/73, which came down to 167/73. Ulcerative 61 temperature 98.0. Blood test shows normal CBC, PT/PTT, normal CMP with sodium 132, CK 97, troponins negative, TSH normal. UA shows large amount of leukocyte Estrace, 158 WBC and moderate blood. CT head revealed age-related atrophic and chronic small vessel ischemic change without acute intracranial process seen at this time. Chest x-ray revealed no evidence for acute pulmonary disease. EKG shows sinus rhythm with first-degree AV block. Patient denies any tobacco use, no alcohol. Patient denies diabetes or hypertension. Patient does not take any antiplatelet medication at home. Patient takes levothyroxine and indomethacin for gout. Review of Systems These review of systems as per patient's family report. Constitutional: Reports weight loss, Denies chills, Denies fever Eyes: denies blurred vision, denies diplopia, denies pain Ears: bilateral: decreased hearing, deny: ear discharge, earache Ears, nose, mouth and throat: Denies headache, Denies sore throat Cardiovascular: Denies chest pain, Denies shortness of breath Respiratory: Denies cough, Denies excessive sputum Gastrointestinal: Denies abdominal pain, Denies diarrhea, Denies nausea, Denies vomiting Genitourinary: Denies dysuria, Denies hematuria Musculoskeletal: Reports low back pain, Denies myalgias, Denies neck pain Integumentary: Denies pruritus, Denies rash Neurological: Reports as per HPI Psychiatric: Denies anxiety, Denies depression Endocrine: Reports fatigue, Reports weight change Past Medical History Past Medical History: Thyroid Disorder Additional Past Medical History / Comment(s): Hypothyroid, kidney stones, gout History of Any Multi-Drug Resistant Organisms: None Reported Past Surgical History: Hysterectomy Past Anesthesia/Blood Transfusion Reactions: No Reported Reaction Past Psychological History: No Psychological Hx Reported Smoking Status: Never smoker Past Alcohol Use History: None Reported Past Drug Use History: None Reported Medications and Allergies Home Medications Medication Instructions Recorded Confirmed Type Indomethacin [Indocin] 50 mg PO BID 03/30/23 03/30/23 History Levothyroxine Sodium [Synthroid] 112 mcg PO DIRECTED 03/30/23 03/30/23 History Allergies Allergy/AdvReac Type Severity Reaction Status Date / Time Penicillins Allergy Severe Rash/Hives Verified 03/30/23 12:01 Physical Examination - Vital Signs Vital Signs: Vital Signs Temp Pulse Resp BP BP Pulse Ox 03/30/23 16:00 16 163/47 97 03/30/23 15:53 16 03/30/23 14:37 98.2 F 69 16 173/78 96 03/30/23 12:30 68 175/87 97 03/30/23 12:00 66 185/75 99 03/30/23 11:30 60 167/73 97 03/30/23 10:41 98.0 F 61 18 199/73 98 Intake and Output 03/30/23 03/30/23 03/30/23 06:59 14:59 22:59 Other: Voiding Method External Catheter Weight 59.058 kg 59.058 kg Patient is an elderly female, who appears to be complaining of significant pain in the left buttock. Patient is alert awake, but appears to be aphasic. Patient cannot name any object presented. Patient cannot repeat. Patient could not point to the ceiling or to the window. Patient has poor comprehension. Her limited speech did not have obvious dysarthria. Attention, concentration is significantly impairedand fund of knowledge cannot be assessed due to aphasia. Patient clearly denies headache. On cranial nerve examination, pupils are equal, round and reacting to light, visual combs could not be tested reliably because of patient's aphasia and poor comprehension. Extraocular muscles are intact with no nystagmus. Patient appears to have right facial droop, very subtle, although patient's family denying. Her tongue protrudes to the midline. Palatal elevation and sensation could not be tested. Shoulder shrug normal, facial sensation normal. On muscle strength testing, there is no pronator drift and the strength is normal in arms and legs distally and proximally. Deep tendon reflexes are symmetric 2+ all over and plantars downgoing. Sensory to could not be assessed because of patient's poor comprehension. Cerebellar function showed no ataxia for [id number] testing. Patient did not cooperate for [id number]-[id number] testing. Tone and bulk of muscles normal. Gait deferred.. On general examination, there is no carotid bruit or murmur, S1-S2 audible. Chest is clear on consultation. Abdomen is soft nontender. No organomegaly, bowel sounds present. Patient has edema in the right lower limb, right ankle and foot. No edema on the left side. Her right ankle, foot appears somewhat warm as compared to the left. Patient does have gout. Results - Laboratory Findings CBC and BMP: 03/30/23 10:47 03/30/23 10:47 Abnormal Lab Findings: Abnormal Labs 03/30/23 03/30/23 03/30/23 10:47 10:47 12:15 APTT 31.9 H Sodium 132 L Glucose 100 H Albumin 3.4 L Urine Appearance Cloudy H Urine Blood Moderate H Ur Leukocyte Esterase Large H Urine RBC 15 H Urine WBC 158 H Urine WBC Clumps Few H Urine Bacteria Rare H Assessment and Plan Assessment: * Acute onset of aphasia and very subtle right facial weakness. Probable acute CVA. Differential also includes metabolic encephalopathy, rule out seizures * Acute UTI * Right foot swelling, redness, probable gout, rule out cellulitis. * Acute left buttock pain, rule out hip arthritis, rule out renal stone versus lumbar radicular pain. * Gout * Hypothyroidism Plan: * MRI of the brain without contrast, evaluate for acute CVA * 2-D echo with bubble study to rule out PFO * CTA head and neck showed: Mild atherosclerotic change at the bilateral carotid bifurcation, mild less than 25% proximal right ICA stenosis. There is mild stenosis distal V4 segment left vertebral artery and distal basilar artery. Hypoplastic P1 segment left UTILIZATION MANAGER in combination with small but patent left posterior communicating artery supplying the left UTILIZATION MANAGER. 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 Mild diffuse narrowing of the right ICA and hypoplastic A1 segment right JENNIFER. * Fasting a.m. lipid panel * Hemoglobin A1c * B12, folate * Agree with starting aspirin 325 mg daily for now * If the MRI does not show any acute stroke, then would recommend urgent EEG. * Patient has acute UTI, currently on ceftriaxone. * Patient's right foot and ankle appears swollen. This could be related to gout, although consider checking ultrasound, rule out DVT. Rule out cellulitis. Will defer to IM.. * Patient also complaining of left buttock pain. Patient undergoing x-ray of the pelvis. May need to rule out renal stone versus lumbar disc disease. * Permissive hypertension for next 24-48 hours * Close neuro checks as per protocol. * Telemetry monitoring rule out any arrhythmia * DVT prophylaxis: Heparin 5000 units subcu every 12 hours * Dr. Alston will cover neurology service over the weekend. Thank you for the consult. Time with Patient: Greater than 30
[2023-03-31] MEDS: LEVOTHYROXINE 112 MCG TAB PO SCH (06:44)
[2023-03-31] MEDS: THIAMINE 100 MG TAB PO SCH ×2 (06:44→17:05)
[2023-03-31] MEDS: PANTOPRAZOLE 40 MG TABLET PO SCH (06:44)
[2023-03-31 08:41] LABS: Basophils # (A) 0.1 k/uL (0-0.2); Basophils % (A) 1 %; Eosinophils # (A) 0.1 k/uL (0-0.7); Eosinophils % (A) 2 %; HCT 36.5 % (34.0-46.0); HGB 12.2 gm/dL (11.4-16.0); Lymphocytes # (A) 1.6 k/uL (1.0-4.8); Lymphocytes % (A) 26 %; MCHC 33.3 g/dL (31.0-37.0); Mean Platelet Volume 8.2; Monocytes # (A) 0.4 k/uL (0-1.0); Monocytes % (A) 6 %; Neutrophils % (A) 63 %; Platelet Count 326 k/uL (150-450); RBC 3.93 m/uL (3.80-5.40); RDW 13.2 % (11.5-15.5); WBC 6.3 k/uL (3.8-10.6)
[2023-03-31 08:55] LABS: African American GFR (CKD) >90 (>60 ml/min/1.73 sqM); Anion Gap 9 mmol/L; Blood Urea Nitrogen 13 mg/dL (7-17); Carbon Dioxide 25 mmol/L (22-30); Chloride 97 mmol/L (98-107); Glucose 103 mg/dL (74-99); Magnesium 1.9 mg/dL (1.6-2.3); Non-African American GFR(CKD) 85 (>60 ml/min/1.73 sqM); Potassium 4.3 mmol/L (3.5-5.1); Sodium 131 mmol/L (137-145)
[2023-03-31] MEDS ORDERED: ASPIRIN 325 MG TAB PO SCH (09:00)
[2023-03-31] MEDS ORDERED: ATORVASTATIN 40 MG TAB PO SCH (09:00)
[2023-03-31] MEDS ORDERED: cefTRIAXone 1,000 MG VIAL (IM USE) IM SCH (09:00)
[2023-03-31] MEDS: HEPARIN SODIUM,PORCINE 5,000 UNIT/ML 1 ML VIAL SQ SCH ×2 (09:30→21:08)
[2023-03-31] MEDS: COLCHICINE 0.6 MG EACH PO SCH (09:31)
[2023-03-31] MEDS: PSYLLIUM HUSK 100% 6 GM PACKET PO SCH (09:38)
--- NOTE | 2023-03-31 12:49 | P.CRDCN ---
History of Present Illness Consult date: 03/31/23 Reason for Consult (text): Secondary heart block History of present illness: The patient is an 88-year-old female with no significant cardiac history, who presented to the hospital with dizziness and worsening confusion. The patient states she has been feeling unwell over the last several weeks since starting her indomethacin. She's had memory loss according to the patient's grandson as well as the patient reporting being dizzy and generalized feeling unwell. DIAGNOSTICS: Initial EKG showed sinus mechanism without ST or T-wave abnormalities Follow-up EKG at 1:46 AM showed second-degree heart block, Mobitz type I Chest x-ray showed no acute cardiopulmonary disease CT of the head and neck shows mild atherosclerotic change Lab data: WBC 6.4 hemoglobin 12.0, hematocrit 35.1, platelet 275, sodium 132, potassium 4.5, BUN 16, creatinine 0.5 to, hemoglobin A1c 5.7, magnesium 1.9, AST 35, ALT 34, troponins negative, TSH 3.9, positive for urinary tract infection REVIEW OF SYSTEMS: No fever or chills. No cough or expectoration. No erin phoresis. Patient denies headache, dizziness, blurred vision, double vision. Patient denies any stomach discomfort. No nausea, vomiting. No hematochezia. No hematemesis. Denies any black stools or blood in his stools. Denies dysuria or hematuria. No muscle weakness or numbness. Positive for dizziness. Positive for confusion PHYSICAL EXAMINATION: This is a 88-year-old female in no apparent distress at the time of my examination. HEENT: Head is atraumatic, normocephalic. Pupils are equal, round. Sclerae anicteric. Conjunctivae are clear. Mucous membranes of the mouth are moist. Neck is supple. There is no jugular venous distention. No carotid bruit is heard. CHEST EXAMINATION: Lungs are clear to auscultation. No chest wall tenderness is noted on palpation or with deep breathing. HEART EXAMINATION: Heart regular rate and rhythm. S1, S2 heard. No murmurs, gallops or rub. ABDOMEN: Soft, nontender. Bowel sounds are heard. No organomegaly noted. EXTREMITIES: 2+ peripheral pulses with no evidence of peripheral edema and no calf tenderness noted. NEUROLOGIC EXAMINATION: Patient is awake, alert and oriented x2. FINAL ASSESSMENT AND PLAN: Acute mental status change Dizziness, secondary to indomethacin versus second-degree heart block Second-degree heart block, overnight, no evidence during daytime hours History gout PLAN: Discontinue indomethacin Start colchicine for gout Continue to monitor on telemetry Consideration for pacemaker implant Further recommendations to be based on clinical course I am dictating on behalf of Dr Joseluis Graves's history/physical and assessment/pl an. Past Medical History Past Medical History: Thyroid Disorder Additional Past Medical History / Comment(s): Hypothyroid, kidney stones, gout History of Any Multi-Drug Resistant Organisms: None Reported Past Surgical History: Hysterectomy Past Anesthesia/Blood Transfusion Reactions: No Reported Reaction Past Psychological History: No Psychological Hx Reported Smoking Status: Never smoker Past Alcohol Use History: None Reported Past Drug Use History: None Reported Medications and Allergies Home Medications Medication Instructions Recorded Confirmed Type Indomethacin [Indocin] 50 mg PO BID 03/30/23 03/30/23 History Levothyroxine Sodium [Synthroid] 112 mcg PO DIRECTED 03/30/23 03/30/23 History Allergies Allergy/AdvReac Type Severity Reaction Status Date / Time Penicillins Allergy Severe Rash/Hives Verified 03/30/23 12:01 Physical Exam Vitals: Vital Signs Temp Pulse Pulse Resp BP BP Pulse Ox 03/31/23 08:00 97.7 F 56 L 16 146/55 94 L 03/31/23 04:00 98.1 F 47 L 16 136/56 97 03/31/23 01:45 48 L 15 135/53 97 03/31/23 00:00 97.6 F 49 L 16 142/55 96 03/30/23 20:00 97.8 F 67 18 151/66 100 03/30/23 16:00 16 163/47 97 03/30/23 15:53 16 03/30/23 14:37 98.2 F 69 16 173/78 96 Intake and Output 03/30/23 03/31/23 03/31/23 22:59 06:59 14:59 Intake Total 120 540 Output Total 400 200 Balance -280 340 Intake: Oral 120 540 Output: Urine 400 200 Other: Voiding Method Bedside Commode Bedside Commode Bedside Commode # Voids 2 # Bowel Movements 1 Weight 59.058 kg Results 03/31/23 07:46 03/31/23 07:46 CBC 03/31/23 Range/Units 07:46 WBC 6.3 (3.8-10.6) k/uL RBC 3.93 (3.80-5.40) m/uL Hgb 12.2 (11.4-16.0) gm/dL Hct 36.5 (34.0-46.0) % Plt Count 326 (150-450) k/uL Comprehensive Metabolic Panel 03/31/23 Range/Units 07:46 Sodium 131 L (137-145) mmol/L Potassium 4.3 (3.5-5.1) mmol/L Chloride 97 L (98-107) mmol/L Carbon Dioxide 25 (22-30) mmol/L BUN 13 (7-17) mg/dL Creatinine 0.54 (0.52-1.04) mg/dL Glucose 103 H (74-99) mg/dL Calcium 9.0 (8.4-10.2) mg/dL Current Medications Generic Name Dose Route Start Last Admin Trade Name Freq PRN Reason Stop Dose Admin Acetaminophen 500 mg 03/30/23 17:28 Acetaminophen Tab 500 Mg Tab PO Q6HR PRN Fever and/ or Pain Hydrocodone Bitart/Acetaminophen 1 each 03/30/23 17:28 03/30/23 20:40 Hydrocodone/Apap 5-325mg 1 Each Tab PO 1 each Q6HR PRN Administration Pain Atorvastatin Calcium 80 mg 03/30/23 21:00 03/30/23 20:41 Atorvastatin 80 Mg Tab PO 80 mg HS JESS Administration Colchicine 0.6 mg 03/31/23 09:00 03/31/23 09:31 Colchicine 0.6 Mg Each PO 0.6 mg DAILY JESS Administration Folic Acid 1 mg 03/31/23 12:00 Folic Acid 1 Mg Tab PO DAILY@1200 JESS Heparin Sodium (Porcine) 5,000 unit 03/30/23 21:00 03/31/23 09:30 Heparin Sodium,Porcine 5,000 Unit/Ml 1 Ml Vial SQ 5,000 unit Q12HR JESS Administration Ceftriaxone Sodium 1 gm/ 50 mls @ 100 mls/hr 03/31/23 09:00 03/31/23 09:31 Sodium Chloride IVPB 100 mls/hr Q24HR JESS Administration Levothyroxine Sodium 112 mcg 03/31/23 06:30 03/31/23 06:44 Levothyroxine 112 Mcg Tab PO 112 mcg [id number] JESS Administration Multivitamins 1 each 08/12/23 12:00 Multivitamins, Thera 1 Each Tab PO DAILY@1200 [facility] Pantoprazole Sodium 40 mg 03/31/23 07:30 03/31/23 06:44 Pantoprazole 40 Mg Tablet PO 40 mg [id number] [facility] Administration Psyllium Hydrophilic Mucilloid 6 gm 03/31/23 09:00 03/31/23 09:38 Psyllium Husk 100% 6 Gm Packet PO Not Given DAILY [facility] Thiamine HCl 100 mg 03/30/23 17:30 03/31/23 06:44 Thiamine 100 Mg Tab PO 100 mg BID-W/MEALS [facility] Administration Intake and Output 03/30/23 03/31/23 03/31/23 22:59 06:59 14:59 Intake Total 120 540 Output Total 400 200 Balance -280 340 Intake: Oral 120 540 Output: Urine 400 200 Other: Voiding Method Bedside Commode Bedside Commode Bedside Commode # Voids 2 # Bowel Movements 1 Weight 59.058 kg 03/31/23 07:46 03/31/23 07:46
--- NOTE | 2023-03-31 13:03 | MR ---
EXAMINATION TYPE: MR brain wo con DATE OF EXAM: 03/31/2023 12:32 PM COMPARISON: NONE HISTORY: Acute CVA FINDINGS: The ventricles, basal cisterns and sulci overlying the cerebral convexities are mildly enlarged. There is evidence of mild periventricular white matter ischemic demyelination. Remote deep white matter insults are also noted. No acute edema is seen on diffusion weighted imaging. There is no evidence for midline shift or mass effect. Acute intracranial hemorrhage or extra-axial collection is not evident. The paranasal sinuses and mastoid air cells are well-aerated. IMPRESSION: Age-related atrophic and chronic small vessel ischemic change. No acute intracranial process at this time.
--- NOTE | 2023-03-31 13:17 | P.PN ---
Subjective Progress Note Date: 03/31/23 The patient is an 88-year-old female who is seen in neurologic follow-up on March 31, 2023, in collaboration with Ayesha Elliott, via teleneurology. The chart has been reviewed. The patient's son and grandson are present at the bedside at the time of the evaluation. The reports that when the patient originally came into the hospital, she was unable to speak and unable to understand what was being said to her. Apparently these symptoms were present at her home. According to the grandson, he reports that his mother advised the patient to take a drink of water, before EMS arrived. The patient did not understand what her daughter was saying to her. CT scan of the brain was performed in the emergency department. There is no reported evidence of acute hemorrhage or infarct. The patient's symptoms reportedly began, on Sunday morning, upon awakening. Objective - Vital Signs Vital signs: Vital Signs Temp 97.7 F 03/31/23 08:00 Pulse 56 L 03/31/23 08:00 Resp 16 03/31/23 08:00 BP 146/55 03/31/23 08:00 Pulse Ox 94 L 03/31/23 08:00 FiO2 Intake & Output 03/30/23 03/31/23 03/31/23 18:59 06:59 18:59 Intake Total 120 540 Output Total 400 200 Balance -280 340 Weight 59.058 kg Intake: Oral 120 540 Output: Urine 400 200 Other: Voiding Method External Catheter Bedside Commode Bedside Commode # Voids 2 # Bowel Movements 1 - Exam Gen.: The patient is reclining in the bed. She is well-nourished, well- developed and in no acute distress. HEENT: Head is atraumatic, normocephalic. Fundus not visualized. There is no scleral icterus. Mucous membranes are moist. Heart: Regular rate and rhythm Extremities: Without edema Neurological examination Mental status: The patient is awake, alert and oriented 3. Her speech is clear. There is no dysarthria or aphasia. The patient is able to accurately na me objects. She is able to repeat phrases. She is able to accurately state the name of her son and grandson were present in the room. Cranial nerves: Pupils are equal, round and reactive to light. Visual combs testing reveals a questionable right visual field deficit. Extraocular movements are intact. Her is no nystagmus. Facial sensations intact. There is subtle flattening of the right nasolabial fold. Motor: Acoustical Carpenter strength is 4/5 bilaterally. Triceps and biceps strength 4/5. Right hip flexor 3/5. Left hip flexor 4/5. Coordination: Finger to nose and rapid alternating movements are intact. [id number] testing is intact. Deep tendon reflexes: 3+/4+ throughout. Plantar responses are difficult to assess secondary to withdrawal. Gait: Not assessed - Labs CBC & Chem 7: 03/31/23 07:46 03/31/23 07:46 Labs: Abnormal Lab Results - Last 24 Hours (Table) 03/31/23 Range/Units 07:46 Sodium 131 L (137-145) mmol/L Chloride 97 L (98-107) mmol/L Glucose 103 H (74-99) mg/dL Assessment and Plan Assessment: Acute onset of aphasia-Expressive and receptive and very subtle right facial weakness. Probable acute CVA. Differential also includes metabolic encephalopathy, rule out seizures * Acute UTI * Right foot swelling, redness, probable gout, rule out cellulitis. * Acute left buttock pain, rule out hip arthritis, rule out renal stone versus lumbar radicular pain. * Gout * Hypothyroidism Plan: 1. Stroke workup has been initiated. MRI of the brain is negative for acute infarct. 2. EEG will be ordered to assess for epileptiform activity-This has been ordered routine, in light of resolution of the patient's symptoms 3. Continue aspirin 4. Continue treatment of urinary tract infection 5. Await 2-D echocardiogram results Time with Patient: Less than 30 (Spent 25 minutes caring for this patient today including, obtained history, examining the patient, reviewing imaging, chart documentation, labs, placing orders and creating this note)
[2023-03-31 13:35] LABS: Chol/HDL Ratio 3.21 Ratio; VLDL Calculation 17.38 mg/dL (5.00-40.00)
--- NOTE | 2023-03-31 13:47 | PN ---
PROGRESS NOTE DATE OF SERVICE: 03/31/2023 SUBJECTIVE: This 88-year-old woman, who was admitted with change in mental status and possible UTI, also had complaints of back pain, but today the patient is feeling better. Pelvis x- ray did not show any fractures. Osteopenia noted. OBJECTIVE: VITAL SIGNS: Pulse is 56, blood pressure 146/58, respirations 16. CHEST: Clear to auscultation. CARDIOVASCULAR: S1, S2. ABDOMEN: Soft. NERVOUS SYSTEM: Nonfocal. LABORATORY DATA: Sodium 131. Rest of the labs are noted. ASSESSMENT: 1. Change in mental status and acute metabolic encephalopathy, present on admission. 2. Possible acute urinary tract infection with sepsis, present on admission. 3. Back pain, possibly musculoskeletal. 4. Hypothyroidism. 5. Nephrolithiasis. 6. History of gout. RECOMMENDATIONS: Recommend to continue current medications. Continue symptomatic treatment. Otherwise, we will closely monitor. I would also check a uric acid also. Guarded prognosis. Further recommendations to follow. MMODL / IJN: [id number] /
[2023-03-31] MEDS: MULTIVITAMINS, THERA 1 EACH TAB PO SCH (15:23)
[2023-03-31] MEDS: FOLIC ACID 1 MG TAB PO SCH (15:23)
[2023-03-31] MEDS: ATORVASTATIN 80 MG TAB PO SCH (21:09)
[2023-04-01] MEDS: PANTOPRAZOLE 40 MG TABLET PO SCH (06:51)
[2023-04-01] MEDS: THIAMINE 100 MG TAB PO SCH ×2 (06:52→17:04)
[2023-04-01 06:54] LABS: Basophils # (A) 0.1 k/uL (0-0.2); Basophils % (A) 1 %; Eosinophils # (A) 0.2 k/uL (0-0.7); Eosinophils % (A) 3 %; HCT 38.9 % (34.0-46.0); HGB 13.2 gm/dL (11.4-16.0); Lymphocytes # (A) 2.3 k/uL (1.0-4.8); Lymphocytes % (A) 31 %; MCH 31.2 pg (25.0-35.0); MCHC 33.8 g/dL (31.0-37.0); MCV 92.2 fL (80.0-100.0); Mean Platelet Volume 7.2; Monocytes # (A) 0.4 k/uL (0-1.0); Monocytes % (A) 5 %; Neutrophils # (A) 4.5 k/uL (1.3-7.7); Neutrophils % (A) 59 %; Platelet Count 313 k/uL (150-450); RBC 4.22 m/uL (3.80-5.40); RDW 12.7 % (11.5-15.5); WBC 7.5 k/uL (3.8-10.6)
[2023-04-01 06:58] LABS: African American GFR (CKD) >90 (>60 ml/min/1.73 sqM); Anion Gap 8 mmol/L; Blood Urea Nitrogen 12 mg/dL (7-17); Calcium 9.1 mg/dL (8.4-10.2); Carbon Dioxide 25 mmol/L (22-30); Chloride 99 mmol/L (98-107); Glucose 84 mg/dL (74-99); Non-African American GFR(CKD) 85 (>60 ml/min/1.73 sqM); Sodium 132 mmol/L (137-145)
[2023-04-01] MEDS: PSYLLIUM HUSK 100% 6 GM PACKET PO SCH (08:25)
[2023-04-01] MEDS: COLCHICINE 0.6 MG EACH PO SCH (08:30)
[2023-04-01] MEDS: HEPARIN SODIUM,PORCINE 5,000 UNIT/ML 1 ML VIAL SQ SCH ×2 (08:30→20:58)
[2023-04-01] MEDS ORDERED: amLODIPine 2.5 MG TAB PO SCH (09:00)
--- NOTE | 2023-04-01 11:04 | CA ---
Transthoracic Echo Report Name: Gertrudis Burgess Age: 88 Gender: F : 1935 Exam Date: 03/31/2023 11:24 Exam Location: [facility] Ht (in): Wt (lb): 130 Ordering Physician: Nikki Ellsworth MD Attending/Referring Phys: Retail Cashier Associate Nandini Sullivan RDCS Procedure CPT: Indications: CVA Cardiac Hx: Technical Quality: Fair Contrast 1: Agitated Saline Total Dose (mL): 8 Contrast 2: Total Dose (mL): MEASUREMENTS (Male / Female) Normal Values 2D ECHO LV Diastolic Diameter PLAX 3.2 cm 4.2 - 5.9 / 3.9 - 5.3 cm LV Systolic Diameter PLAX 2.0 cm IVS Diastolic Thickness 1.1 cm 0.6 - 1.0 / 0.6 - 0.9 cm LVPW Diastolic Thickness 1.3 cm 0.6 - 1.0 / 0.6 - 0.9 cm LV Relative Wall Thickness 0.7 RV Internal Dim ED PLAX 2.3 cm LA Volume 53.0 cm??? 18 - 58 / 22 - 52 cm??? M-MODE Aortic Root Diameter MM 2.2 cm LA Systolic Diameter MM 3.3 cm LA Ao Ratio MM 1.5 AV Cusp Separation MM 1.6 cm DOPPLER AV Peak Velocity 149.2 cm/s AV Peak Gradient 8.9 mmHg AV Mean Velocity 90.7 cm/s AV Mean Gradient 4.0 mmHg AV Velocity Time Integral 35.6 cm LVOT Peak Velocity 96.3 cm/s LVOT Peak Gradient 3.7 mmHg LVOT Velocity Time Integral 25.3 cm MV Area PHT 3.1 cm??? Mitral E Point Velocity 95.5 cm/s Mitral A Point Velocity 79.8 cm/s Mitral E to A Ratio 1.2 MV Deceleration Time 244.0 ms MV E' Velocity 7.8 cm/s Mitral E to MV E' Ratio 12.2 FINDINGS Left Ventricle Mildly increased left ventricular wall thickness. Left ventricular cavity size normal. Normal left ventricular systolic function with no obvious regional wall motion abnormalities. Left ventricular ejection fraction is estimated at 55-60 %. Right Ventricle Normal right ventricular size and function. Right Atrium Normal right atrial size. Negative agitated saline bubble study for right to left shunt. Left Atrium Normal left atrial size. Mitral Valve Structurally normal mitral valve. Mitral valve thickened. Mild mitral annular calcification. Trace to mild mitral regurgitation. Aortic Valve No aortic valve stenosis or regurgitation. Thickened aortic valve without stenosis. Tricuspid Valve Structurally normal tricuspid valve. Mild tricuspid regurgitation. Pulmonic Valve Trace pulmonic regurgitation. Pericardium No pericardial effusion. Aorta Normal size aortic root and proximal ascending aorta. CONCLUSIONS Normal LV systolic function Normal RV size and function Previewed by: Dr. Joseluis Graves MD (Electronically Signed) Final Date: 01 April 2023 11:03
--- NOTE | 2023-04-01 11:15 | P.PN ---
Subjective Progress Note Date: 04/01/23 This is Jose Tay NP, I'm dictating on behalf of Dr. Graves's H&P and A&P. Patient was interviewed and examined. Patient is a pleasant 88-year-old female who presented to the hospital with dizziness and worsening confusion. Patient reports that she's feeling okay today. She states there has been some dizziness with ambulation. Patient continues to demonstrate sinus bradycardia on telemetry. She also has occasional second-degree type I heart block that has been noted on telemetry. She otherwise denies chest pain, shortness of breath, or heart palpitations. GENERAL: Well-appearing, well-nourished and in no acute distress. NECK: Supple without JVD or thyromegaly. LUNGS: Breath sounds clear to auscultation bilaterally. Respiration equal and unlabored. No wheezes, rales or rhonchi. HEART: Regular rate and rhythm without murmurs, rubs or gallops. S1 and S2 heard. EXTREMITIES: Normal range of motion, no edema. No clubbing or cyanosis. Peripheral pulses intact and strong. VITALS: Temp 98.0, pulse 52, respirations 16, blood pressure 148/58, O2 saturation 98% on room air TELEMETRY: Sinus bradycardia, with occasional second-degree type I heart block LABS: White count 7.5, hemoglobin 13.2, platelets 313, sodium 132, potassium 4.0, B1 12 creatinine 0.55, calcium 9.1, triglycerides 86.9, cholesterol 188, LDL 112, HDL 58.6 IMPRESSION: 1. Acute mental status change 2. Dizziness, secondary to indomethacin versus second-degree heart block 3. Second-degree heart block, overnight again noted 4. History of gout 5. Hypertension PLAN: Start amlodipine 2.5 mg daily. Patient may walk to the bathroom with assist. Please assess for dizziness during those walks. Still considering possible pacemaker placement. Further recommendations based on patient's clinical course. Objective - Vital Signs Vital signs: Vital Signs Temp 98.0 F 04/01/23 08:00 Pulse 52 L 04/01/23 08:00 Resp 16 04/01/23 08:00 BP 148/58 04/01/23 08:00 Pulse Ox 98 04/01/23 08:00 FiO2 Intake & Output 03/31/23 04/01/23 04/01/23 18:59 06:59 18:59 Intake Total 118 200 Balance 118 200 Intake: Oral 118 200 Other: Voiding Method Bedside Commode Bedside Commode Bedside Commode # Voids 2 1 # Bowel Movements 1 - Labs CBC & Chem 7: 04/01/23 06:27 04/01/23 06:27 Labs: Abnormal Lab Results - Last 24 Hours (Table) 04/01/23 Range/Units 06:27 Sodium 132 L (137-145) mmol/L Microbiology - Last 24 Hours (Table) 03/30/23 17:37 Blood Culture - Preliminary Blood
--- NOTE | 2023-04-01 12:15 | P.PN ---
Subjective Progress Note Date: 04/01/23 April 01, 2023 The patient is seen in neurologic follow-up, in collaboration with Ayesha Elliott, via teleneurology. The patient is seated in bedside chair. She reports she is feeling very well. She does recall meeting me yesterday. Results of the MRI were discussed with th e patient. In addition, it was explained to the patient that she will be having an EEG, MRI because of the possibility of seizure, resulting in her expressive and receptive aphasia. March 31, 2023 The patient is an 88-year-old female who is seen in neurologic follow-up on March 31, 2023, in collaboration with Ayesha Elliott, via teleneurology. The chart has been reviewed. The patient's son and grandson are present at the bedside at the time of the evaluation. The reports that when the patient originally came into the hospital, she was unable to speak and unable to understand what was being said to her. Apparently these symptoms were present at her home. According to the grandson, he reports that his mother advised the patient to take a drink of water, before EMS arrived. The patient did not understand what her daughter was saying to her. CT scan of the brain was performed in the emergency department. There is no reported evidence of acute hemorrhage or infarct. The patient's symptoms reportedly began, on Sunday morning, upon awakening. Objective - Vital Signs Vital signs: Vital Signs Temp 98.0 F 04/01/23 08:00 Pulse 52 L 04/01/23 08:00 Resp 16 04/01/23 08:00 BP 148/58 04/01/23 08:00 Pulse Ox 98 04/01/23 08:00 FiO2 Intake & Output 03/31/23 04/01/23 04/01/23 18:59 06:59 18:59 Intake Total 118 200 Balance 118 200 Intake: Oral 118 200 Other: Voiding Method Bedside Commode Bedside Commode Bedside Commode # Voids 2 1 # Bowel Movements 1 - Exam Gen.: The patient is seated in the bedside chair. She is well-nourished, well- developed and in no acute distress HEENT: Head is atraumatic, normocephalic. Fundus not visualized. There is no scleral icterus. Mucous membranes are moist. Neurological examination Mental status: The patient is awake, alert and oriented 3. She is able to quickly and easily state her name, date of , age, location. Her speech is clear Cranial nerves: 2-12 grossly intact - Labs CBC & Chem 7: 04/01/23 06:27 04/01/23 06:27 Labs: Abnormal Lab Results - Last 24 Hours (Table) 04/01/23 Range/Units 06:27 Sodium 132 L (137-145) mmol/L Microbiology - Last 24 Hours (Table) 03/30/23 17:37 Blood Culture - Preliminary Blood Assessment and Plan Assessment: Acute onset of aphasia-Expressive and receptive and very subtle right facial weakness. MRI of the brain is negative for acute ischemia, must rule out seizures * Acute UTI * Right foot swelling, redness, probable gout, rule out cellulitis. * Acute left buttock pain, rule out hip arthritis, rule out renal stone versus l umbar radicular pain. * Gout * Hypothyroidism Plan: 1. Stroke workup has been initiated. MRI of the brain is negative for acute infarct. 2. EEG Has been ordered to assess for epileptiform activity-This has been ordered routine, in light of resolution of the patient's symptoms 3. Continue aspirin 4. Continue treatment of urinary tract infection 5. Await 2-D echocardiogram results Dr. Zenon Rodriguez will assume neurologic coverage of this patient as of April 02, 2023 Time with Patient: Less than 30 (25 minutes were spent caring for this patient today including, obtaining a history, examining the patient, reviewing imaging, chart documentation, labs and creating this note)
[2023-04-01] MEDS: FOLIC ACID 1 MG TAB PO SCH (12:17)
[2023-04-01] MEDS: MULTIVITAMINS, THERA 1 EACH TAB PO SCH (12:17)
[2023-04-01] MEDS: ATORVASTATIN 80 MG TAB PO SCH (20:58)
--- NOTE | 2023-04-02 03:32 | PN ---
PROGRESS NOTE DATE OF SERVICE: 04/01/2023 SUBJECTIVE: This is an 88-year-old woman, who was admitted with change in mental status and possible acute UTI, also had back pain, which is improving. A brain MRI did not show any acute abnormality. The patient has empiric antibiotics. Cultures are negative so far. The patient also has secondary heart block. OBJECTIVE: VITAL SIGNS: Pulse is 52, blood pressure 140/58, respirations 16. CHEST: Clear to auscultation. CARDIOVASCULAR: S1, S2. ABDOMEN: Soft. NERVOUS SYSTEM: Nonfocal. LABORATORY DATA: Reviewed. ASSESSMENT: 1. Change in mental status, acute metabolic encephalopathy present on admission, possibly secondary to urinary tract infection. 2. Possible urinary tract infection with sepsis present on admission. 3. Secondary heart block. 4. Back pain, possibly musculoskeletal, improved. 5. Hypothyroidism. 6. Nephrolithiasis. 7. History of gout. 8. Multiple complex medical issues. RECOMMENDATIONS: Recommend to continue current management and continue symptomatic treatment. Otherwise, continue with antibiotics. Follow the cultures. Further recommendations to follow. MMODL / IJN: [id number] /
[2023-04-02] MEDS: THIAMINE 100 MG TAB PO SCH ×2 (06:48→16:25)
[2023-04-02] MEDS: LEVOTHYROXINE 112 MCG TAB PO SCH (06:48)
[2023-04-02] MEDS: PANTOPRAZOLE 40 MG TABLET PO SCH (06:49)
[2023-04-02] MEDS: PSYLLIUM HUSK 100% 6 GM PACKET PO SCH (08:23)
[2023-04-02] MEDS: HEPARIN SODIUM,PORCINE 5,000 UNIT/ML 1 ML VIAL SQ SCH ×2 (08:25→21:54)
[2023-04-02] MEDS: amLODIPine 5 MG TAB PO SCH (08:25)
[2023-04-02] MEDS: COLCHICINE 0.6 MG EACH PO SCH (08:26)
--- NOTE | 2023-04-02 11:08 | P.PN ---
Subjective Progress Note Date: 04/02/23 Patient was interviewed and examined. Patient is a pleasant 88-year-old female who presented to the hospital with dizziness and worsening confusion. Patient reports that she's feeling okay today. She states there has been some dizziness with ambulation. Patient continues to demonstrate sinus bradycardia on telemetry. She also has occasional second-degree type I heart block that has been noted on telemetry. She otherwise denies chest pain, shortness of breath, or heart palpitations. VITALS: Temp 98.0, pulse 52, respirations 16, blood pressure 148/58, O2 saturation 98% on room air TELEMETRY: Sinus bradycardia, with occasional second-degree type I heart block LABS: White count 7.5, hemoglobin 13.2, platelets 313, sodium 132, potassium 4.0, B1 12 creatinine 0.55, calcium 9.1, triglycerides 86.9, cholesterol 188, LDL 112, HDL 58.6 04/02 Patient is seen today in follow-up. She denies having any new concerns. Her heart rate is mostly running in the 50s, slowest overnight was 44. Blood pres sure 169/64. Patient was started on amlodipine 2.5 mg yesterday. Patient is undergoing neurology workup and she is continued on antibiotics for possible urinary tract infection. GENERAL: Well-appearing, well-nourished and in no acute distress. NECK: Supple without JVD or thyromegaly. LUNGS: Breath sounds clear to auscultation bilaterally. Respiration equal and unlabored. No wheezes, rales or rhonchi. HEART: Regular rate and rhythm without murmurs, rubs or gallops. S1 and S2 heard. EXTREMITIES: No edema. Peripheral pulses intact and strong. IMPRESSION: 1. Acute mental status change 2. Dizziness, secondary to indomethacin versus second-degree heart block 3. Second-degree heart block, overnight again noted 4. History of gout 5. Hypertension PLAN: Increase amlodipine to 5 mg daily. Patient may walk to the bathroom with assist. Please assess for dizziness during those walks. Continue telemetry monitoring Still considering possible pacemaker placement. Further recommendations based on patient's clinical course. Nurse practitioner note has been reviewed, I agree with the documented findings and plan of care. Patient was seen and examined. Objective - Vital Signs Vital signs: Vital Signs Temp 97.5 F L 08/14/23 04:00 Pulse 59 L 04/02/23 04:00 Resp 16 04/02/23 04:00 BP 169/64 04/02/23 04:00 Pulse Ox 97 04/02/23 04:00 FiO2 Intake & Output 04/01/23 04/02/23 04/02/23 18:59 06:59 18:59 Intake Total 236 Balance 236 Intake: Oral 236 Other: Voiding Method Bedside Commode Bedside Commode # Voids 2 3 - Labs CBC & Chem 7: 04/01/23 06:27 04/01/23 06:27 Labs: Microbiology - Last 24 Hours (Table) 03/30/23 17:37 Blood Culture - Preliminary Blood 03/31/23 07:30 Urine Culture - Final Urine,Voided
--- NOTE | 2023-04-02 11:16 | P.PN ---
Subjective This is a pleasant 88 years old female with multiple medical problems as below. He was initially admitted on 03/30 for strokelike symptoms with increased confusion and dysarthria however workup was unremarkable with negative MRI of the brain for acute stroke, neurologist on the case and patient kept on aspirin Also co founder and cto follow-up with the patient and [facility] added today for hypertension She was placed on ceftriaxone for possible UTI however patient denies any signs symptoms of urinary tract infection, no suprapubic tenderness, but she is complaining of from left foot cellulitis at this suspected given clinically its warm and swollen and more pinkish in color compared to the other side. No leg inflammation is noted. She denies chest pain dyspnea or other complaints. We'll switch antibiotics to cefazolin EEG is pending Objective - Vital Signs Vital signs: Vital Signs Temp 97.7 F 04/02/23 08:19 Pulse 55 L 04/02/23 10:24 Resp 18 04/02/23 10:24 BP 167/71 04/02/23 08:19 Pulse Ox 95 04/02/23 08:19 FiO2 Intake & Output 04/01/23 04/02/23 04/02/23 18:59 06:59 18:59 Intake Total 236 180 Balance 236 180 Intake: Oral 236 180 Other: Voiding Method Bedside Commode Bedside Commode Bedside Commode # Voids 2 3 - Exam GENERAL: The patient is alert and oriented x3, not in any acute distress. Well developed, well nourished. HEENT: Pupils are round and equally reacting to light. EOMI. No scleral icterus. No conjunctival pallor. Normocephalic, atraumatic. No pharyngeal erythema. No thyromegaly. CARDIOVASCULAR: S1 and S2 present. No murmurs, rubs, or gallops. PULMONARY: Chest is clear to auscultation, no wheezing , no crackles. ABDOMEN: Soft, nontender, nondistended, normoactive bowel sounds. No palpable organomegaly. MUSCULOSKELETAL: No joint swelling or deformity. -EXTREMITIES: No cyanosis, clubbing, or pedal edema. Left foot is warm and erythematous and swollen with some tenderness. No wound or discharge NEUROLOGICAL: Gross neurological examination did not reveal any focal deficits. SKIN: No rashes. no petechiae. - Labs CBC & Chem 7: 04/01/23 06:27 04/01/23 06:27 Labs: Microbiology - Last 24 Hours (Table) 03/30/23 17:37 Blood Culture - Preliminary Blood 03/31/23 07:30 Urine Culture - Final Urine,Voided Assessment and Plan Assessment: Left foot cellulitis Possible acute urinary tract infection responded to treatment Possible altered mental status was transient dysarthria, resolved could be metabolic encephalopathy secondary to above versus TIA, neurologist on the case Left buttock pain, resolved History of second heart block Chronic back pain Hypothyroidism History of nephrolithiasis History of gout Plan: Change antibiotics to cefazolin Follow-up the foot cellulitis Follow-up EEG Follow-up blood pressure Cardiology and neurology services on the case Labs and medication were reviewed.. Continue same treatment. Continue with symptomatic treatment. Resume home medication. Monitor labs and vitals. DVT and GI prophylaxis. Further recommendations as per clinical course of the patient DVT prophylaxis: Subcutaneous heparin GI Prophylaxis: Pepcid PT/OT: Home health care Prognosis is guarded
[2023-04-02] MEDS: MULTIVITAMINS, THERA 1 EACH TAB PO SCH (12:14)
[2023-04-02] MEDS: FOLIC ACID 1 MG TAB PO SCH (12:14)
--- NOTE | 2023-04-02 15:09 | P.PN ---
Subjective Progress Note Date: 04/02/23 I am seeing the patient for the first time during this admission. Please refer to Dr. Alston's and Dr. Ellsworth's notes for further details. Patient stated that the she came to the hospital because at home she felt off but could not describe the episode that to me. She stated that she has an acute urinary tract infection She denies of any focal weakness, numbness, any headache, any visual disturbance. Per Dr. Alston's note the patient had acute onset expressive aphasia and receptive and very subtle right facial weakness. MRI the brain is negative for any acute ischemia and her for must rule out seizure. Objective - Vital Signs Vital signs: Vital Signs Temp 97.7 F 04/02/23 08:19 Pulse 50 L 04/02/23 13:47 Resp 18 04/02/23 13:47 BP 151/68 04/02/23 12:10 Pulse Ox 98 04/02/23 12:10 FiO2 Intake & Output 04/01/23 04/02/23 04/02/23 18:59 06:59 18:59 Intake Total 236 450 Balance 236 450 Intake: Oral 236 450 Other: Voiding Method Bedside Commode Bedside Commode Bedside Commode # Voids 2 3 2 # Bowel Movements 1 - Exam General as the patient is sitting in a recliner chair and is not in acute distress. Neuro: Patient is awake alert oriented to self place and time. Patient is following simple commands. No aphasia and no neglect. Pupils are round equal reactive to light pupils are about 3-4 mm bilaterally. Visual combs are full to consultation. Extraocular movement is intact no nystagmus at. Normal facial sensation. No facial weakness. Tongue is midline and moved [id number] without any difficulty Strength is moving all extremities above gravity and no focal deficit that. Sensation is normal to touch throughout. - Labs CBC & Chem 7: 04/01/23 06:27 04/01/23 06:27 Labs: Microbiology - Last 24 Hours (Table) 03/30/23 17:37 Blood Culture - Preliminary Blood 03/31/23 07:30 Urine Culture - Final Urine,Voided Assessment and Plan Assessment: This is an 88-year-old woman with him episode of acute expressive and receptive aphasia with very subtle right facial weakness. Acute onset expressive and receptive aphasia with MRI being negative. ROutine EEG is normal. Possible due to underlying infection such as ?cellulitis. Cannot rule out TIA.-- symptoms has resolved Acute UTI Right foot swelling, redness, probable gout rule out cellulitis Gout Hypothyroidism Plan: Routine EEG: Is normal. She is on aspirin 2-D echo was reported as normal left ventricle systolic function and normal right ventricular size and function. Regarding the CT angiography of the reported a few borderline sized lymph nodes in the upper mediastinum measuring up to 9 mm we'll defer the management/workup to the primary team We'll defer the rest of medical management to primary team Plan discussed with the patient. There is no further neurological work-up. Will sign off. Please notify neurology team if any further concerns. Time with Patient: Less than 30
--- NOTE | 2023-04-02 16:31 | EEG ---
ELECTROENCEPHALOGRAM REPORT CLINICAL HISTORY: This is an 88-year-old woman, who has altered mental status. The video EEG is obtained to evaluate for seizure and epileptiform activity. RELEVANT MEDICATIONS: The patient is not on any antiepileptic drugs. EEG TYPE: A routine 21-channel EEG is performed with video using the 10/20 electrode placement system. DESCRIPTION: Wakefulness is only obtained. During awake state, the posterior-dominant rhythm consists of [id number] voltage of 9 to 9.5 Hz activity, that is well modulated and well sustained. There is no physiological sleep architecture. There is no focal slowing. INTERICTAL AND ICTAL: None. ACTIVATION PROCEDURE: Photic stimulation did not evoke a positive driving response. There is no abnormality during the photic stimulation. Hyperventilation is not performed. CLINICAL INTERPRETATION: This is a normal routine EEG. There is no focal slowing, epileptiform discharge, or seizure on the EEG. The normal routine EEG does not rule any underlying seizure. Clinical interpretation is recommended. MMKASHMIRL / IJN: [id number] / MTDQue
[2023-04-02] MEDS ORDERED: HEPARIN SODIUM,PORCINE 5,000 UNIT/ML 1 ML VIAL SQ SCH (21:00)
[2023-04-02] MEDS: FAMOTIDINE 20 MG/2 ML VIAL IV SCH (21:54)
[2023-04-02] MEDS: ATORVASTATIN 80 MG TAB PO SCH (21:55)
[2023-04-03] MEDS: HYDROcodone/APAP 5-325MG 1 EACH TAB PO PRN ×2 (06:40→21:08)
[2023-04-03] MEDS: PANTOPRAZOLE 40 MG TABLET PO SCH (06:40)
[2023-04-03] MEDS: LEVOTHYROXINE 112 MCG TAB PO SCH (06:40)
[2023-04-03] MEDS: THIAMINE 100 MG TAB PO SCH ×2 (06:40→16:52)
[2023-04-03] MEDS: amLODIPine 5 MG TAB PO SCH (08:56)
[2023-04-03] MEDS: FAMOTIDINE 20 MG/2 ML VIAL IV SCH ×2 (08:57→21:08)
[2023-04-03] MEDS: COLCHICINE 0.6 MG EACH PO SCH (08:57)
[2023-04-03] MEDS: HEPARIN SODIUM,PORCINE 5,000 UNIT/ML 1 ML VIAL SQ SCH ×2 (08:57→21:08)
[2023-04-03] MEDS: PSYLLIUM HUSK 100% 6 GM PACKET PO SCH (08:58)
[2023-04-03] MEDS ORDERED: amLODIPine 5 MG TAB PO STA (10:16)
--- NOTE | 2023-04-03 10:18 | P.PN ---
Subjective Progress Note Date: 04/03/23 Patient was interviewed and examined. Patient is a pleasant 88-year-old female who presented to the hospital with dizziness and worsening confusion. Patient reports that she's feeling okay today. She states there has been some dizziness with ambulation. Patient continues to demonstrate sinus bradycardia on telemetry. She also has occasional second-degree type I heart block that has been noted on telemetry. She otherwise denies chest pain, shortness of breath, or heart palpitations. VITALS: Temp 98.0, pulse 52, respirations 16, blood pressure 148/58, O2 saturation 98% on room air TELEMETRY: Sinus bradycardia, with occasional second-degree type I heart block LABS: White count 7.5, hemoglobin 13.2, platelets 313, sodium 132, potassium 4.0, B1 12 creatinine 0.55, calcium 9.1, triglycerides 86.9, cholesterol 188, LDL 112, HDL 58.6 04/02 Patient is seen today in follow-up. She denies having any new concerns. Her heart rate is mostly running in the 50s, slowest overnight was 44. Blood pres sure 169/64. Patient was started on amlodipine 2.5 mg yesterday. Patient is undergoing neurology workup and she is continued on antibiotics for possible urinary tract infection. 04/03 Patient is seen today in follow-up. Slowest heart rate overnight was 54 currently running 65 in sinus rhythm. Blood pressure readings have been elevated despite increase in amlodipine 5 mg yesterday. Repeat blood work reveals CVC unremarkable. Sodium 132, potassium 4, creatinine 0.9. Cholesterol 188, triglycerides 86, LDL 112, HDL 58.. GENERAL: Well-appearing, well-nourished and in no acute distress. NECK: Supple without JVD or thyromegaly. LUNGS: Breath sounds clear to auscultation bilaterally. Respiration equal and unlabored. No wheezes, rales or rhonchi. HEART: Regular rate and rhythm without murmurs, rubs or gallops. S1 and S2 heard. EXTREMITIES: No edema. Peripheral pulses intact and strong. IMPRESSION: 1. Acute mental status change 2. Dizziness, secondary to indomethacin versus second-degree heart block 3. Second-degree heart block, asymptomatic 4. History of gout 5. Hypertension PLAN: Increase amlodipine to 10 mg daily. No further cardiac workup at this time. Cardiology will sign off this case and follow on an as-needed basis. Please reconsult for any new concerns. Patient may follow-up in the office in one to 2 weeks. Nurse practitioner note has been reviewed, I agree with the documented findings and plan of care. Patient was seen and examined. Objective - Vital Signs Vital signs: Vital Signs Temp 98.2 F 04/03/23 04:00 Pulse 64 04/03/23 04:00 Resp 18 04/03/23 04:00 BP 159/55 04/03/23 04:00 Pulse Ox 95 04/03/23 04:00 FiO2 Intake & Output 04/02/23 04/03/23 04/03/23 18:59 06:59 18:59 Intake Total 720 400 Balance 720 400 Weight 41 kg Intake: Intake, IV Titration 100 Amount ceFAZolin 2 gm In Sodium 100 Chloride 0.9% 50 ml @ 100 mls/hr IVPB Q8HR [facility] Rx# :[id number] Oral 720 300 Other: Voiding Method Bedside Commode Bedside Commode # Voids 2 2 # Bowel Movements 1 - Labs CBC & Chem 7: 04/01/23 06:27 04/01/23 06:27 Labs: Microbiology - Last 24 Hours (Table) 03/30/23 17:37 Blood Culture - Preliminary Blood
--- NOTE | 2023-04-03 12:02 | XR ---
EXAMINATION TYPE: XR foot complete RT DATE OF EXAM: 04/03/2023 COMPARISON: 02/15/2023 HISTORY: Pain and swelling TECHNIQUE: Three views are submitted. FINDINGS: Diffuse osteopenia. There is moderate hypertrophic arthropathy of the first knee. No significant arth ropathy of the tarsometatarsal junction. DIP joint narrowing of all digits suspected. No erosive mosher ges. Diffuse osteopenia. Soft tissue edema. Vascular calcifications. No destructive changes. IMPRESSION: 1. No acute fracture or dislocation. If symptoms persist, follow-up exam in 7 to 10 days could be ob tained. 2. Stable arthropathy.
[2023-04-03] MEDS: FOLIC ACID 1 MG TAB PO SCH (12:04)
[2023-04-03] MEDS: MULTIVITAMINS, THERA 1 EACH TAB PO SCH (12:04)
--- NOTE | 2023-04-03 12:22 | P.PN ---
Subjective This is a pleasant 88 years old female with multiple medical problems as below. He was initially admitted on 03/30 for strokelike symptoms with increased confusion and dysarthria however workup was unremarkable with negative MRI of the brain for acute stroke, neurologist on the case and patient kept on aspirin Also dye tub tender follow-up with the patient and Norvasc added today for hypertension She was placed on ceftriaxone for possible UTI however patient denies any signs symptoms of urinary tract infection, no suprapubic tenderness, but she is complaining of from left foot cellulitis at this suspected given clinically its warm and swollen and more pinkish in color compared to the other side. No leg inflammation is noted. She denies chest pain dyspnea or other complaints. We'll switch antibiotics to cefazolin EEG is pending 04/11/2023 Patient mentation at baseline, no new neurological deficit. MRI of the brain is negative. EKG is negative as well and the neurologist signed off the case. Patient currently remains on aspirin. Norvasc is added on blood pressure is better controlled. No UTIs signs and symptoms. No other buttock pain. No more aphasia slurred speech or AMS. She has right foot cellulitis, her right foot is less red and swollen compared to yesterday after we change her ceftriaxone and to cefazolin. Foot x-ray was negative but cannot rule out joint problems therefore we asked for orthopedic consult Patient may benefit from 1 more day of IV antibiotic Possible discharge in 24-48 hours if she keeps improving PT/OT recommended home health care which is ordered Objective - Vital Signs Vital signs: Vital Signs Temp 97.2 F L 04/03/23 11:40 Pulse 40 L 04/03/23 11:40 Resp 18 04/03/23 11:40 BP 160/61 04/03/23 11:40 Pulse Ox 97 04/03/23 11:40 FiO2 Intake & Output 04/02/23 04/03/23 04/03/23 18:59 06:59 18:59 Intake Total 720 400 540 Balance 720 400 540 Weight 41 kg Intake: Intake, IV Titration 100 Amount ceFAZolin 2 gm In Sodium 100 Chloride 0.9% 50 ml @ 100 mls/hr IVPB Q8HR [facility] Rx# :[id number] Oral 720 300 540 Other: Voiding Method Bedside Commode Bedside Commode Bedside Commode # Voids 2 2 # Bowel Movements 1 - Exam GENERAL: The patient is alert and oriented x3, not in any acute distress. Well developed, well nourished. HEENT: Pupils are round and equally reacting to light. EOMI. No scleral icterus. No conjunctival pallor. Normocephalic, atraumatic. No pharyngeal erythema. No thyromegaly. CARDIOVASCULAR: S1 and S2 present. No murmurs, rubs, or gallops. PULMONARY: Chest is clear to auscultation, no wheezing , no crackles. ABDOMEN: Soft, nontender, nondistended, normoactive bowel sounds. No palpable organomegaly. MUSCULOSKELETAL: No joint swelling or deformity. -EXTREMITIES: No cyanosis, clubbing, or pedal edema. Left foot is warm and erythematous (less) and swollen (less) with some tenderness. No wound or discharge NEUROLOGICAL: Gross neurological examination did not reveal any focal deficits. SKIN: No rashes. no petechiae. - Labs CBC & Chem 7: 04/01/23 06:27 04/01/23 06:27 Labs: Microbiology - Last 24 Hours (Table) 03/30/23 17:37 Blood Culture - Preliminary Blood Assessment and Plan Assessment: Left foot cellulitis Possible acute urinary tract infection responded to treatment Possible altered mental status was transient dysarthria, resolved could be metabolic encephalopathy secondary to above versus TIA, neurologist on the case Left buttock pain, resolved History of second heart block Chronic back pain Hypothyroidism History of nephrolithiasis History of gout Plan: Change antibiotics to cefazolin Follow-up the foot cellulitis Follow-up orthopedic team Follow-up blood pressure Cardiology and neurology services on the case Labs and medication were reviewed.. Continue same treatment. Continue with symptomatic treatment. Resume home medication. Monitor labs and vitals. DVT and GI prophylaxis. Further recommendations as per clinical course of the patient DVT prophylaxis: Subcutaneous heparin GI Prophylaxis: Pepcid PT/OT: Home health care Prognosis is guarded Possible discharge in 24-48 hours
[2023-04-03 12:49] VITALS: BMI 14.6
--- NOTE | 2023-04-03 12:58 | P.CNOR ---
History of Present Illness - HPI Consult date: 04/03/23 History of present illness: This is an 88-year-old female who is admitted for acute encephalitis. Orthopedics is consulted due to right foot pain. Patient is currently on IV antibiotics for suspected right foot cellulitis. Patient is seen and evaluated at bedside today. Patient states that she has had pain in the right foot for over 2 weeks. Patient denies any known injury and states that she was diagnosed with gout recently in the emergency room. Patient states that she has no pain unless she tries to bear weight on the right lower extremity. Patient states that she initially had some swelling of the right foot, but this is improving. Patient states that she was taking a medication for gout per her family doctor, but did have some side effects. Patient states that she also tried ibuprofen for the pain which did provide some relief. Patient denies any fever/chills, numbness, weakness, tingling. Review of Systems See HPI. Past Medical History Past Medical History: Thyroid Disorder Additional Past Medical History / Comment(s): Hypothyroid, kidney stones, gout History of Any Multi-Drug Resistant Organisms: None Reported Past Surgical History: Hysterectomy Past Anesthesia/Blood Transfusion Reactions: No Reported Reaction Past Psychological History: No Psychological Hx Reported Smoking Status: Never smoker Past Alcohol Use History: None Reported Past Drug Use History: None Reported Medications and Allergies Home Medications Medication Instructions Recorded Confirmed Type Indomethacin [Indocin] 50 mg PO BID 03/30/23 03/30/23 History Levothyroxine Sodium [Synthroid] 112 mcg PO DIRECTED 03/30/23 03/30/23 History Allergies Allergy/AdvReac Type Severity Reaction Status Date / Time Penicillins Allergy Severe Rash/Hives Verified 03/30/23 12:01 Physical Examination On exam patient is resting comfortably in a chair in no acute distress. Patient is alert and oriented 3. There is mild swelling of the right foot. There is tenderness to palpation over the lateral aspect of the right foot and ankle. No tenderness to palpation medially. There is minimal erythema and skin is intact. Patient has good range of motion of the right ankle and toes. Sensation is intact. The right lower extremity is warm and well perfused. Neurovascular status and circulatory status are intact. Results X-rays of the right foot dated 04/03/2023 are reviewed and are negative for any acute process. - Labs Labs: Microbiology - Last 24 Hours (Table) 03/30/23 17:37 Blood Culture - Preliminary Blood H & H 03/30/23 03/31/23 04/01/23 Range/Units 10:47 07:46 06:27 Hgb 12.0 12.2 13.2 (11.4-16.0) gm/dL Hct 35.1 36.5 38.9 (34.0-46.0) % Coagulation 03/30/23 Range/Units 10:47 INR 1.0 (<1.2) Result Diagrams: 04/01/23 06:27 04/01/23 06:27 Assessment and Plan (1) Right foot pain Current Visit: Yes Status: Acute Code(s): M79.671 - PAIN IN RIGHT FOOT SNOMED Code(s): 29144526 (2) Cellulitis of foot Current Visit: Yes Status: Acute Code(s): L03.119 - CELLULITIS OF UNSPECIFIED PART OF LIMB SNOMED Code(s): 018739692 Plan: 1. X-rays of the right foot are reviewed and are negative. 2. There is no surgical intervention planned. If the patient continues to have pain with weightbearing she may benefit from a period of immobilization with an equalizer boot. Recommend follow up on an outpatient basis.
[2023-04-03 20:42] VITALS: RESP 16
[2023-04-03] MEDS: ATORVASTATIN 80 MG TAB PO SCH (21:08)
[2023-04-04] MEDS: THIAMINE 100 MG TAB PO SCH (06:20)
[2023-04-04] MEDS: PANTOPRAZOLE 40 MG TABLET PO SCH (06:20)
[2023-04-04] MEDS: LEVOTHYROXINE 112 MCG TAB PO SCH (06:20)
[2023-04-04 08:11] VITALS: BP 157/61; PULSE 54; TEMP 97.4
[2023-04-04] MEDS ORDERED: amLODIPine 10 MG TAB PO SCH (09:00)
[2023-04-04] MEDS: HEPARIN SODIUM,PORCINE 5,000 UNIT/ML 1 ML VIAL SQ SCH (09:09)
[2023-04-04] MEDS: COLCHICINE 0.6 MG EACH PO SCH (09:09)
[2023-04-04] MEDS: FAMOTIDINE 20 MG/2 ML VIAL IV SCH (09:09)
[2023-04-04] MEDS: PSYLLIUM HUSK 100% 6 GM PACKET PO SCH (09:10)
--- NOTE | 2023-04-04 21:32 | P.DS ---
Providers Date of admission: 03/30/23 13:20 Attending physician: Jl Garner MD Consults: 03/30/23 13:23 Consult Physician Urgent Consulting Provider: Nikki Ellsworth Consult Reason/Comments: suspected cva, encephalopathy, aphasia Do you want consulting provider notified?: Yes 03/31/23 02:44 Consult Physician Routine Consulting Provider: Chandan Pineda Consult Reason/Comments: 2nd degree type 1 block Do you want consulting provider notified?: Yes, Notify in am 04/03/23 09:15 Consult Physician Routine Consulting Provider: Anila Landaverde Consult Reason/Comments: right foot swelling Do you want consulting provider notified?: Yes Primary care physician: Codi Mercedes Hospital Course: Diagnoses: Left foot cellulitis, significantly improved Possible acute urinary tract infection responded to treatment. Most likely patient has asymptomatic bacteriuria Possible altered mental status was transient dysarthria, resolved could be metabolic encephalopathy secondary to above v, stroke has been ruled out with negative MRI, neurologist on the case Left buttock pain, resolved History of second heart block Chronic back pain Hypothyroidism History of nephrolithiasis History of gout Hospital course: This is a pleasant 88 years old female with multiple medical problems as below. He was initially admitted on 03/30 for strokelike symptoms with increased confusion and dysarthria however workup was unremarkable with negative MRI of the brain for acute stroke, neurologist on the case and patient kept on aspirin Also chicken sexer follow-up with the patient and [facility] added for hypertension She was placed on ceftriaxone for possible UTI however patient denies any signs symptoms of urinary tract infection, no suprapubic tenderness, but she is complaining of from left foot cellulitis given clinically its warm and swollen and more pinkish in color compared to the other side. No leg inflammation is noted. She denies chest pain dyspnea or other complaints. She was placed on cefazolin and introduced there was significant improvement. Today erythema is completely resolved tenderness is much better still swollen but improving. X-rays negative for acute fracture or process. Orthopedic team evaluated the patient recommended no surgical intervention and follow-up outpatient. Patient was cleared for discharge by all consultants including neurologist was sent of the case, chicken sexer and of the case and orthopedic team. Problems and management plan were discussed with the patient and he verbalized understanding and acceptance Patient was found stable and can be discharged home in guarded prognosis however he needs follow-up as an outpatient. Patient was instructed to follow up with PCP Dr. Mercedes within one week and patient agrees Patient was instructed to follow up with the orthopedic doctor Mary in 1-2 week, with chicken sexer Dr. Garcia in 1-2 week and patient agrees Physical exam Gen: patient is a AAOx3, no distress CVS: S1-S2, RRR, no murmur Lungs: B/L CTA, no wheezing Abdomen: soft, no distention, no tenderness, positive bowel sounds -Extremity: no leg edema or induration. Left foot mildly swollen. No erythema, improving Time spent more than 35 minutes Patient Condition at Discharge: Serious Plan - Discharge Summary Discharge Rx Participant: No New Discharge Prescriptions: New Colchicine [Colcrys] 0.6 mg PO DAILY #5 each Atorvastatin [Lipitor] 80 mg PO HS #30 tab Multivitamins, Thera [Multivitamin (formulary)] 1 each PO DAILY@1200 #30 tab Folic Acid 1 mg PO DAILY@1200 #30 tab Cephalexin [Keflex] 500 mg PO Q6HR 5 Days #20 cap amLODIPine [Norvasc] 10 mg PO DAILY #30 tab Acetaminophen Tab [Tylenol] 500 mg PO Q6HR PRN #10 tab PRN Reason: Fever And/ Or Pain Thiamine [Vitamin B-1] 100 mg PO BID-W/MEALS #60 tab Continue Levothyroxine Sodium [Synthroid] 112 mcg PO DIRECTED Discontinued Indomethacin [Indocin] 50 mg PO BID Discharge Medication List Levothyroxine Sodium [Synthroid] 112 mcg PO DIRECTED 03/30/23 [History] Acetaminophen Tab [Tylenol] 500 mg PO Q6HR PRN #10 tab 04/04/23 [Rx] Atorvastatin [Lipitor] 80 mg PO HS #30 tab 04/04/23 [Rx] Cephalexin [Keflex] 500 mg PO Q6HR 5 Days #20 cap 04/04/23 [Rx] Colchicine [Colcrys] 0.6 mg PO DAILY #5 each 04/04/23 [Rx] Folic Acid 1 mg PO DAILY@1200 #30 tab 04/04/23 [Rx] Multivitamins, Thera [Multivitamin (formulary)] 1 each PO DAILY@1200 #30 tab 04/04/23 [Rx] Thiamine [Vitamin B-1] 100 mg PO BID-W/MEALS #60 tab 04/04/23 [Rx] amLODIPine [Norvasc] 10 mg PO DAILY #30 tab 04/04/23 [Rx] Follow up Appointment(s)/Referral(s): Joseluis Graves MD [STAFF PHYSICIAN] - 2 Weeks (Office staff will call patient with an appointment date and time. heart doctor) Anila Landaverde DO [Doctor of Osteopathic Medicine] - 10 Days (orthopedic doctor) Codi Mercedes MD [Primary Care Provider] - 04/05/23 11:40 am Patient Instructions/Handouts: Ischemic Stroke (DC) Activity/Diet/Wound Care/Special Instructions: heart healthy diet activity is restricted till you see your doctor Discharge Disposition: HOME WITH HOME HEALTH SERVICES
== END 2023-04-04 13:15 | disposition home or self-care (01) | DRG 602 ==
LOC: EC 10:37 → 3SCARD 13:20
PROVIDERS: ADMIT Internal Medicine; ATTEND Internal Medicine
DX: L03.116 Cellulitis of left lower limb (principal); G93.41 Metabolic encephalopathy; N39.0 Urinary tract infection, site not specified; R47.01 Aphasia; R47.1 Dysarthria and anarthria; M10.9 Gout, unspecified; G89.29 Other chronic pain; R00.1 Bradycardia, unspecified; I44.1 Atrioventricular block, second degree; M85.80 Other specified disorders of bone density and structure, unspecified site; N20.0 Calculus of kidney; R29.810 Facial weakness; Z79.82 Long term (current) use of aspirin; Z79.890 Hormone replacement therapy; Z87.442 Personal history of urinary calculi; Z79.2 Long term (current) use of antibiotics
CPT/HCPCS: 36415; 70450; 70496; 70498; 70551; 71046; 73521; 80048; 80053; 80061; 81001; 82550; 82607; 82746; 83036; 83735; 84443; 84484; 84550; 85025; 85610; 85730; 87040; 87086; 93005; 93306; 94760; 95816; 96374; 99291

== ENCOUNTER → 2023-06-01 | Day surgery (SDC) | payer MEDICARE, BC ==
[2023-05-29 11:58] VITALS: BMI 17.7
[~2023-06-01] MED LIST: CLINDAMYCIN 900 MG in DEXTROSE 5% IN WATER 50 ML IVPB PRN; LIDOCAINE 1% INJ 10MG/ML (20 ML MDV) ONE; LIDOCAINE 1% INJ 10MG/ML (20 ML MDV) SQ ONE; SODIUM CHLORIDE 0.9% 1,000 ML IV SCH
[2023-06-01 11:01] VITALS: BP 157/71; RESP 16; TEMP 97.7
--- NOTE | 2023-06-21 08:03 | P.EPPROC ---
- EP Procedure Note Electrophysiology Procedure Note: Loop monitor implant Primary physicians: Fishing Gear Mechanic: Dr. Graves Indication: Bradycardia/intermittent AV block Patient was brought to the EP lab in a fasting state. Written informed consent was obtained prior to the procedure. The left pectoral area was prepped and draped per protocol. Intravenous antibiotic was administered preoperatively. A subcutaneous Loop monitor was implanted successfully and the wound was closed per protocol. The device was programmed to detect significant alana- arrhythmic and tachy-arrhythmic events, per protocol. Device and programming details: Bradycardia 4/syncope protocol Patient underwent EP procedure under conscious sedation/moderate sedation, monitoring of the level of consciousness and physiologic parameters including but not limited to vital signs and oxygenation. Patient tolerated the procedure well without any acute complications.
== END ==
LOC: CATHEP 10:13
PROVIDERS: ATTEND Internal Medicine Clinical Cardiac Electrophysiology
DX: I44.1 Atrioventricular block, second degree (principal); I10 Essential (primary) hypertension; I25.10 Atherosclerotic heart disease of native coronary artery without angina pectoris; Z79.899 Other long term (current) drug therapy
CPT/HCPCS: 33285; C1764; J2001; J0736

== ENCOUNTER 2023-10-29 15:42 | Observation (INO) | payer MEDICARE, BC ==
[2023-10-29] MEDS: ASPIRIN 81 MG PO STA (16:20)
[2023-10-29] MEDS: NITROGLYCERIN OINT 1 INCH/GM PACKET TOPICAL STA (16:21)
[2023-10-29 16:26] LABS: Basophils # (A) 0.1 k/uL (0-0.2); Basophils % (A) 1 %; Eosinophils # (A) 0.1 k/uL (0-0.7); Eosinophils % (A) 2 %; HCT 39.7 % (34.0-46.0); HGB 13.3 gm/dL (11.4-16.0); Lymphocytes # (A) 1.7 k/uL (1.0-4.8); Lymphocytes % (A) 26 %; MCH 31.8 pg (25.0-35.0); MCHC 33.5 g/dL (31.0-37.0); MCV 94.8 fL (80.0-100.0); Mean Platelet Volume 6.8; Monocytes # (A) 0.3 k/uL (0-1.0); Monocytes % (A) 4 %; Neutrophils # (A) 4.2 k/uL (1.3-7.7); Neutrophils % (A) 65 %; Platelet Count 273 k/uL (150-450); RBC 4.19 m/uL (3.80-5.40); RDW 12.7 % (11.5-15.5); WBC 6.5 k/uL (3.8-10.6)
[2023-10-29 16:35] LABS: INR 0.9 (<1.2); Partial Thromboplastin Time 27.8 sec (22.0-30.0); Prothrombin Time 10.2 sec (10.0-12.5)
--- NOTE | 2023-10-29 16:47 | XR ---
EXAMINATION TYPE: XR chest 2V DATE OF EXAM: 10/29/2023 4:33 PM CLINICAL INDICATION:Female, 88 years old with history of Chest Pain; [facility] COMPARISON: Chest radiographs from 03/30/2023 TECHNIQUE: XR chest 2V Frontal and lateral views of the chest. FINDINGS: Lungs/Pleura: Prominent interstitial lung markings are seen scattered throughout the lungs with hank ening of the diaphragm and increased lucency of the lung apices. No evidence of focal consolidation, pneumothorax or pleural effusion. Pulmonary vascularity: Unremarkable. Heart/mediastinum: Cardiomediastinal silhouette is unremarkable. A loop recorder projects over the le ft thorax over the heart. Musculoskeletal: No acute osseous pathology. Other findings: None IMPRESSION: 1. No acute cardiopulmonary disease process. 2. COPD changes.
[2023-10-29 16:53] LABS: ALT 27 U/L (4-34); AST 29 U/L (14-36); African American GFR (CKD) >90 (>60 ml/min/1.73 sqM); Albumin 3.7 g/dL (3.5-5.0); Alkaline Phosphatase 85 U/L (38-126); Amylase 82 U/L (30-110); Anion Gap 4 mmol/L; Blood Urea Nitrogen 18 mg/dL (7-17); Calcium 9.2 mg/dL (8.4-10.2); Carbon Dioxide 27 mmol/L (22-30); Chloride 107 mmol/L (98-107); Glucose 102 mg/dL (74-99); Lipase 112 U/L (23-300); Magnesium 2.1 mg/dL (1.6-2.3); Non-African American GFR(CKD) 85 (>60 ml/min/1.73 sqM); Potassium 4.3 mmol/L (3.5-5.1); Sodium 138 mmol/L (137-145); Total Bilirubin 0.5 mg/dL (0.2-1.3); Total Protein 6.7 g/dL (6.3-8.2)
--- NOTE | 2023-10-29 17:48 | ED ---
General Adult HPI - General Chief complaint: Chest Pain Stated complaint: Chest Pain Time Seen by Provider: 10/29/23 16:00 Source: patient, EMS, RN notes reviewed, old records reviewed Mode of arrival: EMS Limitations: no limitations - History of Present Illness Initial comments: This is an 88-year-old female who presents to the emergency department com plaining of having 2 episodes of chest pain today lasting 15 minutes each. Patient states she may have been a little short of breath with each episode but they both resolved spontaneously. Patient denies any radiation of the pain. Patient denies any diaphoretic episode. Patient denies any nausea vomiting. Patient denies any recent fever chills or cough. Patient states the pain is more in the epigastric region that it is in the chest. Patient denies any leg swelling or calf tenderness. - Related Data Home Medications Medication Instructions Recorded Confirmed Levothyroxine Sodium [Synthroid] 112 mcg PO MOTUWETHFRSA 03/30/23 10/29/23 Pravastatin Sodium [Pravachol] 20 mg PO HS 05/29/23 10/29/23 Sennosides [Senokot] 8.6 mg PO DAILY PRN 10/29/23 10/29/23 Previous Rx's Medication Instructions Recorded amLODIPine [Norvasc] 10 mg PO DAILY #30 tab 04/04/23 Allergies Allergy/AdvReac Type Severity Reaction Status Date / Time Penicillins Allergy Severe Rash/Hives Verified 10/29/23 17:41 Review of Systems ROS Statement: Those systems with pertinent positive or pertinent negative responses have been documented in the HPI. ROS Other: All systems not noted in ROS Statement are negative. Past Medical History Past Medical History: Hyperlipidemia, Hypertension, Thyroid Disorder Additional Past Medical History / Comment(s): Hypothyroid, kidney stones, gout, see dr. sandhu's h & p History of Any Multi-Drug Resistant Organisms: None Reported Past Surgical History: Hysterectomy Additional Past Surgical History / Comment(s): COLONOSCOPY, BILAT CATARACTS REMOVED WITH LENS IMPLANTS Past Anesthesia/Blood Transfusion Reactions: No Reported Reaction Past Psychological History: No Psychological Hx Reported Smoking Status: Never smoker - Past Family History Mother Family Medical History: No Reported History General Exam - General Exam Comments Initial Comments: GENERAL: Patient is well-developed and well-nourished. Patient is nontoxic and well- hydrated and is in no acute distress. ENT: Neck is soft and supple. No significant lymphadenopathy is noted. Oropharynx is clear. Moist mucous membranes. Neck has full range of motion without eliciting any pain. EYES: The sclera were anicteric and conjunctiva were pink and moist. Extraocular movements were intact and pupils were equal round and reactive to light. Eyelids were unremarkable. PULMONARY: Unlabored respirations. Good breath sounds bilaterally. No audible rales rhonchi or wheezing was noted. CARDIOVASCULAR: There is a regular rate and rhythm without any murmurs gallops or rubs. ABDOMEN: Soft and nontender with normal bowel sounds. SKIN: Skin is clear with no lesions or rashes and otherwise unremarkable. NEUROLOGIC: Patient is alert and oriented x3. Cranial nerves II through XII are grossly intact. Motor and sensory are also intact. Normal speech, volume and content. Symmetrical smile. MUSCULOSKELETAL: Normal extremities with adequate strength and full range of motion. No lower extremity swelling or edema. No calf tenderness. LYMPHATICS: No significant lymphadenopathy is noted PSYCHIATRIC: Normal psychiatric evaluation. Limitations: no limitations Course Vital Signs 10/29/23 10/29/23 15:44 17:48 Temperature 98.0 F Pulse Rate 61 54 L Respiratory 18 18 Rate Blood Pressure 169/73 152/74 O2 Sat by Pulse 99 99 Oximetry Medical Decision Making - Medical Decision Making EKG is interpreted by myself. EKG shows a sinus bradycardia with a first-degree AV block at 51 bpm QRS is 85 QT interval is 462 QTc is 439. Patient's EKG shows no ST segment ovation or depression. Was pt. sent in by a medical professional or institution (, PA, REGISTERED NURSE MATERNITY, urgent care, hospital, or group home...) When possible be specific @ -No Did you speak to anyone other than the patient for history (EMS, parent, family, police, friend...)? What history was obtained from this source @ -No Did you review nursing and triage notes (agree or disagree)? Why? @ -I reviewed and agree with nursing and triage notes Were old charts reviewed (outside hosp., previous admission, EMS record, old EKG, old radiological studies, urgent care reports/EKG's, group home records)? Report findings @ -I have reviewed prior charts and lab work on this patient Differential Diagnosis (chest pain, altered mental status, abdominal pain women, abdominal pain men, vaginal bleeding, weakness, fever, dyspnea, syncope, headache, dizziness, GI bleed, back pain, seizure, CVA, palpatations, mental health, musculoskeletal)? @ -Differential Chest Pain: Stable Angina, Unstable Angina, STEMI, NSTEMI Aortic Dissection, Pneumothorax, Musculoskeletal, Esophageal Spasm GERD, Cholecystitis, Pancreatitis, Zoster, this is not meant to be an all-inclusive list. EKG interpreted by me (3pts min.). @ -As above X-rays interpreted by me (1pt min.). @ -Chest x-ray shows no acute abnormality CT interpreted by me (1pt min.). @ -None done U/S interpreted by me (1pt. min.). @ -None done What testing was considered but not performed or refused? (CT, X-rays, U/S, labs)? Why? @ -None What meds were considered but not given or refused? Why? @ -None Did you discuss the management of the patient with other professionals (professionals i.e. , PA, REGISTERED NURSE MATERNITY, lab, RT, psych nurse, social work coordinator, biology teacher, teacher, campus police officer, correctional case records supervisor)? Give summary @ -I spoke with [facility] hospitalist he agreed to admit the patient I admitted the patient wrote admitting orders Was smoking cessation discussed for >3mins.? @ -No Was critical care preformed (if so, how long)? @ -No Were there social determinants of health that impacted care today? How? (Homelessness, low income, unemployed, alcoholism, drug addiction, transportation, low edu. Level, literacy, decrease access to med. care, correction, rehab)? @ -No Was there de-escalation of care discussed even if they declined (Discuss DNR or withdrawal of care, Hospice)? DNR status @ -No What co-morbidities impacted this encounter? (DM, HTN, Smoking, COPD, CAD, Cancer, CVA, ARF, Chemo, Hep., AIDS, mental health diagnosis, sleep apnea, morbid obesity)? @ -None Was patient admitted / discharged? Hospital course, mention meds given and route, prescriptions, significant lab abnormalities, going to OR and other pertinent info. @ -Patient chest pain free during the ED stay. I spoke with the patient and the daughter and the were concerned about the chest pain so they want to stay and I spoke with the hospitalist they agreed to admit him I consult the cardiology Undiagnosed new problem with uncertain prognosis? @ -No Drug Therapy requiring intensive monitoring for toxicity (Heparin, Nitro, Insulin, Cardizem)? @ -No Were any procedures done? @ -No Diagnosis/symptom? @ -Chest pain Acute, or Chronic, or Acute on Chronic? @ -Acute Uncomplicated (without systemic symptoms) or Complicated (systemic symptoms)? @ -Complicated Side effects of treatment? @ -No Exacerbation, Progression, or Severe Exacerbation? @ -No Poses a threat to life or bodily function? How? (Chest pain, USA, SC, pneumonia, PE, COPD, DKA, ARF, appy, cholecystitis, CVA, Diverticulitis, Homicidal, Suicidal, threat to staff... and all critical care pts) @ -Yes this could lead to an SC and endorgan dysfunction - Lab Data Result diagrams: 10/29/23 16:10 10/29/23 16:10 Lab Results 10/29/23 10/29/23 10/29/23 Range/Units 16:10 16:10 16:10 WBC 6.5 (3.8-10.6) k/uL RBC 4.19 (3.80-5.40) m/uL Hgb 13.3 (11.4-16.0) gm/dL Hct 39.7 (34.0-46.0) % MCV 94.8 (80.0-100.0) fL MCH 31.8 (25.0-35.0) pg MCHC 33.5 (31.0-37.0) g/dL RDW 12.7 (11.5-15.5) % Plt Count 273 (150-450) k/uL MPV 6.8 Neutrophils % 65 % Lymphocytes % 26 % Monocytes % 4 % Eosinophils % 2 % Basophils % 1 % Neutrophils # 4.2 (1.3-7.7) k/uL Lymphocytes # 1.7 (1.0-4.8) k/uL Monocytes # 0.3 (0-1.0) k/uL Eosinophils # 0.1 (0-0.7) k/uL Basophils # 0.1 (0-0.2) k/uL PT 10.2 (10.0-12.5) sec INR 0.9 (<1.2) APTT 27.8 (22.0-30.0) sec Sodium 138 (137-145) mmol/L Potassium 4.3 (3.5-5.1) mmol/L Chloride 107 (98-107) mmol/L Carbon Dioxide 27 (22-30) mmol/L Anion Gap 4 mmol/L BUN 18 H (7-17) mg/dL Creatinine 0.54 (0.52-1.04) mg/dL Est GFR (CKD-EPI)AfAm >90 (>60 ml/min/1.73 sqM) Est GFR (CKD-EPI)NonAf 85 (>60 ml/min/1.73 sqM) Glucose 102 H (74-99) mg/dL Calcium 9.2 (8.4-10.2) mg/dL Magnesium 2.1 (1.6-2.3) mg/dL Total Bilirubin 0.5 (0.2-1.3) mg/dL AST 29 (14-36) U/L ALT 27 (4-34) U/L Alkaline Phosphatase 85 (38-126) U/L Troponin I (0.000-0.034) ng/mL Total Protein 6.7 (6.3-8.2) g/dL Albumin 3.7 (3.5-5.0) g/dL Amylase 82 (30-110) U/L Lipase 112 (23-300) U/L 10/29/23 Range/Units 16:10 WBC (3.8-10.6) k/uL RBC (3.80-5.40) m/uL Hgb (11.4-16.0) gm/dL Hct (34.0-46.0) % MCV (80.0-100.0) fL MCH (25.0-35.0) pg MCHC (31.0-37.0) g/dL RDW (11.5-15.5) % Plt Count (150-450) k/uL MPV Neutrophils % % Lymphocytes % % Monocytes % % Eosinophils % % Basophils % % Neutrophils # (1.3-7.7) k/uL Lymphocytes # (1.0-4.8) k/uL Monocytes # (0-1.0) k/uL Eosinophils # (0-0.7) k/uL Basophils # (0-0.2) k/uL PT (10.0-12.5) sec INR (<1.2) APTT (22.0-30.0) sec Sodium (137-145) mmol/L Potassium (3.5-5.1) mmol/L Chloride (98-107) mmol/L Carbon Dioxide (22-30) mmol/L Anion Gap mmol/L BUN (7-17) mg/dL Creatinine (0.52-1.04) mg/dL Est GFR (CKD-EPI)AfAm (>60 ml/min/1.73 sqM) Est GFR (CKD-EPI)NonAf (>60 ml/min/1.73 sqM) Glucose (74-99) mg/dL Calcium (8.4-10.2) mg/dL Magnesium (1.6-2.3) mg/dL Total Bilirubin (0.2-1.3) mg/dL AST (14-36) U/L ALT (4-34) U/L Alkaline Phosphatase (38-126) U/L Troponin I <0.012 (0.000-0.034) ng/mL Total Protein (6.3-8.2) g/dL Albumin (3.5-5.0) g/dL Amylase (30-110) U/L Lipase (23-300) U/L Disposition Clinical Impression: Chest pain Disposition: ADMITTED IP TO THIS [facility] Referrals: Codi Mercedes MD [Primary Care Provider] - 1-2 days Time of Disposition: 18:30
[2023-10-29] MEDS ORDERED: NITROGLYCERIN SL TABS 0.4 MG TAB SUBLINGUAL PRN (18:31)
[2023-10-30] MEDS: NITROGLYCERIN OINT 1 INCH/GM PACKET TOPICAL SCH (01:19)
[2023-10-30 03:13] VITALS: RESP 16
[2023-10-30 08:55] LABS: Chol/HDL Ratio 2.74 Ratio; LDL Cholesterol,Calculated 94.6 mg/dL (0.0-131.0)
[2023-10-30] MEDS ORDERED: DOBUTamine DRIP for NUC MED 500 MG in DEXTROSE/WATER 1 250ML.BAG IV PRN (08:59)
[2023-10-30] MEDS ORDERED: ASPIRIN 325 MG TAB PO SCH (09:00)
[2023-10-30] MEDS: amLODIPine 10 MG TAB PO SCH (09:44)
--- NOTE | 2023-10-30 10:08 | P.CRDCN ---
History of Present Illness History of present illness: HISTORY OF PRESENT ILLNESS: This is a 88-year-old female with a past medical history significant for recorder insertion, hypertension, hyperlipidemia, hypothyroidism. Patient follows in the office with Dr. Graves. We have been asked to see the patient in consultation for chest pain. Patient examined at the bedside in the ER. Patient states she had an episode of epigastric discomfort yesterday. She states the pain radiated into her back. She states she only had the 1 episode of chest pain and has had no further episodes of chest pain or pressure. She denies any shortness of breath. Denies any dizziness or lightheadedness. Bedside telemetry reveals sinus mechanism with a heart rate in the 50s60s. DIAGNOSTICS: - EKG reveals second-degree heart block type I. Repeat EKG reveals sinus mechanism with 1st degree AV block. - Chest xray negative for acute process. COPD changes. - Laboratory data: WBC 6.5. Hemoglobin 13.3. Platelet count 273. Sodium 138. Potassium 4.3. BUN 18. Creatinine 0.54. Magnesium 2.1. Troponin negative x 3 - Current home cardiac medications include amlodipine 10 mg daily, Pravachol 20 mg at night. - Most recent echocardiogram obtained in March 2023 reveals ejection fraction 55 to 60%, trace to mild MR and mild TR negative bubble study. -Patient underwent loop recorder implantation in May 2023 REVIEW OF SYSTEMS: At the time of my exam: CONSTITUTIONAL: Denies fever or chills. HEENT: Denies blurred vision, vision changes, or eye pain. Denies hemoptysis CARDIOVASCULAR: Denies chest pain. Denies orthopnea. Denies PND. Denies pal pitations RESPIRATORY: Denies shortness of breath. GASTROINTESTINAL: Denies abdominal pain. Denies nausea or vomiting. HEMATOLOGIC: Denies bleeding disorders. GENITOURINARY: Denies any blood in urine. SKIN: Denies pruitis. Denies rash. PHYSICAL EXAM: VITAL SIGNS: Reviewed. GENERAL: Well-developed in no acute distress. HEENT: Head is normocephalic. Pupils are equal, round. Sclerae anicteric. Mucous membranes of the mouth are moist. Neck supple. No JVD or thyromegaly LUNGS: Respirations even and unlabored. Lungs essentially clear to auscultation bilaterally. HEART: Regular rate and rhythm. S1 and S2 heard. ABDOMEN: Soft. Nondistended. Nontender. EXTREMITIES: Normal range of motion. No clubbing or cyanosis. Peripheral pulses intact. No lower extremity edema NEUROLOGIC: Awake and alert. Oriented x 3. ASSESSMENT: Epigastric pain, troponin negative x 3 Hypertension Hyperlipidemia Hypothyroidism History of intermittent second-degree heart block History of loop recorder insertion, May 2023 PLAN: An acute coronary event has been ruled out Obtain 2D echo to assess cardiac structure and function Resume home cardiac medications Avoid AV jazmin blocking agents Continue telemetry monitoring Patient to undergo dobutamine stress echo today If negative, she may be discharged home from a cardiac standpoint Further recommendations pending patient course Nurse practitioner note has been reviewed by physician. Signing provider agrees with the documented findings, assessment, and plan of care documented by DRUG COORDINATOR as a scribe. Past Medical History Past Medical History: Hyperlipidemia, Hypertension, Thyroid Disorder Additional Past Medical History / Comment(s): Hypothyroid, kidney stones, gout, see dr. graves's h & p History of Any Multi-Drug Resistant Organisms: None Reported Past Surgical History: Hysterectomy Additional Past Surgical History / Comment(s): COLONOSCOPY, BILAT CATARACTS REMOVED WITH LENS IMPLANTS Past Anesthesia/Blood Transfusion Reactions: No Reported Reaction Past Psychological History: No Psychological Hx Reported Smoking Status: Never smoker - Past Family History Mother Family Medical History: No Reported History Medications and Allergies Home Medications Medication Instructions Recorded Confirmed Type Levothyroxine Sodium [Synthroid] 112 mcg PO MOTUWETHFRSA 03/30/23 10/29/23 History amLODIPine [Norvasc] 10 mg PO DAILY #30 tab 04/04/23 10/29/23 Rx Pravastatin Sodium [Pravachol] 20 mg PO HS 05/29/23 10/29/23 History Sennosides [Senokot] 8.6 mg PO DAILY PRN 10/29/23 10/29/23 History Allergies Allergy/AdvReac Type Severity Reaction Status Date / Time Penicillins Allergy Severe Rash/Hives Verified 10/29/23 17:41 Physical Exam Vitals: Vital Signs Temp Pulse Resp BP Pulse Ox 10/30/23 07:23 97.8 F 57 L 16 142/67 96 10/30/23 05:42 51 L 16 140/52 96 10/30/23 04:16 56 L 16 120/53 96 10/30/23 03:03 51 L 16 114/69 95 10/30/23 00:10 49 L 14 133/71 95 10/29/23 22:51 42 L 16 99 10/29/23 20:00 54 L 16 148/70 98 10/29/23 17:48 54 L 18 152/74 99 10/29/23 15:44 98.0 F 61 18 169/73 99 Intake and Output 10/29/23 10/30/23 10/30/23 22:59 06:59 14:59 Other: Weight 49.895 kg Results 10/29/23 16:10 10/29/23 16:10 Cardiac Enzymes 10/29/23 10/29/23 10/29/23 Range/Units 16:10 16:10 18:36 AST 29 (14-36) U/L Troponin I <0.012 <0.012 (0.000-0.034) ng/mL 10/29/23 Range/Units 21:47 AST (14-36) U/L Troponin I <0.012 (0.000-0.034) ng/mL Coagulation 10/29/23 Range/Units 16:10 PT 10.2 (10.0-12.5) sec APTT 27.8 (22.0-30.0) sec CBC 10/29/23 Range/Units 16:10 WBC 6.5 (3.8-10.6) k/uL RBC 4.19 (3.80-5.40) m/uL Hgb 13.3 (11.4-16.0) gm/dL Hct 39.7 (34.0-46.0) % Plt Count 273 (150-450) k/uL Comprehensive Metabolic Panel 10/29/23 Range/Units 16:10 Sodium 138 (137-145) mmol/L Potassium 4.3 (3.5-5.1) mmol/L Chloride 107 (98-107) mmol/L Carbon Dioxide 27 (22-30) mmol/L BUN 18 H (7-17) mg/dL Creatinine 0.54 (0.52-1.04) mg/dL Glucose 102 H (74-99) mg/dL Calcium 9.2 (8.4-10.2) mg/dL AST 29 (14-36) U/L ALT 27 (4-34) U/L Alkaline Phosphatase 85 (38-126) U/L Total Protein 6.7 (6.3-8.2) g/dL Albumin 3.7 (3.5-5.0) g/dL Current Medications Generic Name Dose Route Start Last Admin Trade Name Freq PRN Reason Stop Dose Admin Aspirin 325 mg 10/30/23 09:00 Aspirin 325 Mg Tab PO DAILY JESS Nitroglycerin 0.4 mg 10/29/23 18:31 Nitroglycerin Sl Tabs 0.4 Mg Tab SUBLINGUAL Q5M PRN Chest Pain Nitroglycerin 1 inch 10/30/23 00:00 10/30/23 06:09 Nitroglycerin Oint 1 Inch/Gm Packet TOPICAL Not Given Q6HR JESS Intake and Output 10/29/23 10/30/23 10/30/23 22:59 06:59 14:59 Other: Weight 49.895 kg 10/29/23 16:10 10/29/23 16:10
[2023-10-30 11:46] VITALS: TEMP 97.4
[2023-10-30] MEDS ORDERED: DOBUTamine DRIP for NUC MED 500 MG/250 ML BAG IV ONE (12:02)
--- NOTE | 2023-10-30 12:13 | P.HPIM ---
History of Present Illness Patient is a pleasant 88-year-old female came with complaints of epigastric abdominal discomfort associate with some food radiating to the back patient had only 1 episode which resolved at this time. Patient denies any lightheadedness shortness of breath or diaphoresis associated with her pain. 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 Patient had history of heart rhythm abnormalities in the past follows up with cardiology as an outpatient and cardiology is recommending holding off on any AV jazmin blocking agents like beta-blockers or Cardizem. Cardiology evaluated the patient recommended stress test if stress testing is negative patient will be discharged. Patient had a loop recorder implant event in 2022 had a normal ejection fraction in the past with a trace MR, mild TR on the echocardiogram that was done in March 2023. Chest x-ray did not show any significant abnormality acutely but does have some COPD changes. REVIEW OF SYSTEMS: CONSTITUTIONAL: No fever, no malaise, no fatigue. HEENT: No recent visual problems or hearing problems. Denied any sore throat. CARDIOVASCULAR: No orthopnea, PND, no palpitations, no syncope. PULMONARY: No shortness of breath, no cough, no hemoptysis. GASTROINTESTINAL: No diarrhea, no nausea, no vomiting, NEUROLOGICAL: No headaches, no weakness, no numbness. HEMATOLOGICAL: Denies any bleeding or petechiae. GENITOURINARY: Denies any burning micturition, frequency, or urgency. MUSCULOSKELETAL/RHEUMATOLOGICAL: Denies any joint pain, swelling, or any muscle pain. ENDOCRINE: Denies any polyuria or polydipsia. The rest of the 14-point review of systems is negative. PHYSICAL EXAMINATION: GENERAL: The patient is alert and oriented x3, not in any acute distress. Well developed, well nourished. HEENT: Pupils are round and equally reacting to light. EOMI. No scleral icterus. No conjunctival pallor. Normocephalic, atraumatic. No pharyngeal erythema. No thyromegaly. CARDIOVASCULAR: S1 and S2 present. No murmurs, rubs, or gallops. PULMONARY: Chest is clear to auscultation, no wheezing or crackles. ABDOMEN: Soft, nontender, nondistended, normoactive bowel sounds. No palpable organomegaly. MUSCULOSKELETAL: No joint swelling or deformity. EXTREMITIES: No cyanosis, clubbing, or pedal edema. NEUROLOGICAL: Gross neurological examination did not reveal any focal deficits. SKIN: No rashes. Assessment and plan -Chest pain rule out acute coronary syndromes patient will undergo stress test if that is negative patient will be discharged patient. Pain may be related to mild peptic ulcer disease or gastritis patient will be discharged on 2 weeks of proton pump inhibitor -Hypertension -Hyperlipidemia -Hypothyroidism For above-mentioned chronic medical problems patient will be resumed on appropr iate home medications Patient will be discharged today if stress test is negative Past Medical History Past Medical History: Hyperlipidemia, Hypertension, Thyroid Disorder Additional Past Medical History / Comment(s): Hypothyroid, kidney stones, gout, see dr. sandhu's h & p History of Any Multi-Drug Resistant Organisms: None Reported Past Surgical History: Hysterectomy Additional Past Surgical History / Comment(s): COLONOSCOPY, BILAT CATARACTS REMOVED WITH LENS IMPLANTS Past Anesthesia/Blood Transfusion Reactions: No Reported Reaction Past Psychological History: No Psychological Hx Reported Smoking Status: Never smoker - Past Family History Mother Family Medical History: No Reported History Medications and Allergies Home Medications Medication Instructions Recorded Confirmed Type Levothyroxine Sodium [Synthroid] 112 mcg PO MOTUWETHFRSA 03/30/23 10/29/23 History amLODIPine [Norvasc] 10 mg PO DAILY #30 tab 04/04/23 10/29/23 Rx Pravastatin Sodium [Pravachol] 20 mg PO HS 05/29/23 10/29/23 History Sennosides [Senokot] 8.6 mg PO DAILY PRN 10/29/23 10/29/23 History Omeprazole [PriLOSEC] 40 mg PO AC-BRKFST #14 cap 10/30/23 Rx Allergies Allergy/AdvReac Type Severity Reaction Status Date / Time Penicillins Allergy Severe Rash/Hives Verified 10/29/23 17:41 Physical Exam Vitals: Vital Signs Temp Pulse Resp BP Pulse Ox 10/30/23 11:17 97.4 F L 55 L 16 144/68 98 10/30/23 07:23 97.8 F 57 L 16 142/67 96 10/30/23 05:42 51 L 16 140/52 96 10/30/23 04:16 56 L 16 120/53 96 10/30/23 03:03 51 L 16 114/69 95 10/30/23 00:10 49 L 14 133/71 95 03/11/24 22:51 42 L 16 99 10/29/23 20:00 54 L 16 148/70 98 10/29/23 17:48 54 L 18 152/74 99 10/29/23 15:44 98.0 F 61 18 169/73 99 Intake and Output 10/29/23 10/30/23 10/30/23 22:59 06:59 14:59 Other: Weight 49.895 kg Results CBC & Chem 7: 10/29/23 16:10 10/29/23 16:10 Labs: Abnormal Lab Results - Last 24 Hours (Table) 10/29/23 10/29/23 Range/Units 16:10 16:10 BUN 18 H (7-17) mg/dL Glucose 102 H (74-99) mg/dL HDL Cholesterol 66.80 H (40.00-60.00) mg/dL
--- NOTE | 2023-10-30 12:13 | P.DS ---
Providers Date of admission: 10/29/23 18:33 Attending physician: Shaheen Hardwick Consults: 10/29/23 18:31 Consult Physician Urgent Consulting Provider: [facility] Consult Reason/Comments: Chest pain Do you want consulting provider notified?: Yes Primary care physician: Codi Mercedes [facility] Course: Patient is a pleasant 88-year-old female came with complaints of epigastric abdominal discomfort associate with some food radiating to the back patient had only 1 episode which resolved at this time. Patient denies any lightheadedness shortness of breath or diaphoresis associated with her pain. 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 Patient had history of heart rhythm abnormalities in the past follows up with cardiology as an outpatient and cardiology is recommending holding off on any AV jazmin blocking agents like beta-blockers or Cardizem. Cardiology evaluated the patient recommended stress test if stress testing is negative patient will be discharged. Patient had a loop recorder implant event in 2022 had a normal ejection fraction in the past with a trace MR, mild TR on the echocardiogram that was done in March 2023. Chest x-ray did not show any significant abnormality acutely but does have some COPD changes. PHYSICAL EXAMINATION: GENERAL: The patient is alert and oriented x3, not in any acute distress. Well developed, well nourished. HEENT: Pupils are round and equally reacting to light. EOMI. No scleral icterus. No conjunctival pallor. Normocephalic, atraumatic. No pharyngeal erythema. No thyromegaly. CARDIOVASCULAR: S1 and S2 present. No murmurs, rubs, or gallops. PULMONARY: Chest is clear to auscultation, no wheezing or crackles. ABDOMEN: Soft, nontender, nondistended, normoactive bowel sounds. No palpable organomegaly. MUSCULOSKELETAL: No joint swelling or deformity. EXTREMITIES: No cyanosis, clubbing, or pedal edema. NEUROLOGICAL: Gross neurological examination did not reveal any focal deficits. SKIN: No rashes. Assessment and plan -Chest pain rule out acute coronary syndromes patient will undergo stress test if that is negative patient will be discharged patient. Pain may be related to mild peptic ulcer disease or gastritis patient will be discharged on 2 weeks of proton pump inhibitor -Hypertension -Hyperlipidemia -Hypothyroidism For above-mentioned chronic medical problems patient will be resumed on appropriate home medications Patient will be discharged today if stress test is negative Plan - Discharge Summary New Discharge Prescriptions: New Omeprazole [PriLOSEC] 40 mg PO AC-BRKFST #14 cap No Action Levothyroxine Sodium [Synthroid] 112 mcg PO MOTUWETHFRSA Pravastatin Sodium [Pravachol] 20 mg PO HS amLODIPine [Norvasc] 10 mg PO DAILY #30 tab Sennosides [Senokot] 8.6 mg PO DAILY PRN PRN Reason: Constipation Discharge Medication List Levothyroxine Sodium [Synthroid] 112 mcg PO MOTUWETHFRSA 03/30/23 [History] amLODIPine [Norvasc] 10 mg PO DAILY #30 tab 04/04/23 [Rx] Pravastatin Sodium [Pravachol] 20 mg PO HS 05/29/23 [History] Sennosides [Senokot] 8.6 mg PO DAILY PRN 10/29/23 [History] Omeprazole [PriLOSEC] 40 mg PO AC-BRKFST #14 cap 10/30/23 [Rx] Follow up Appointment(s)/Referral(s): Codi Mercedes MD [Primary Care Provider] - 3 Days Discharge Disposition: HOME SELF-CARE
--- NOTE | 2023-10-30 13:15 | CA ---
Dobutamine Stress Echocardiogram Report Gertrudis Burgess Age: 88 Gender: F : 1935 Exam Date: 10/30/2023 12:10 Exam Location: [facility] Ordering Physician: Eusebia Sanchez Referring Physician: [id number] Epidemiology Intern: Nandini Sullivan RDCS Technologist: Ht (in): 64 Wt (lb): 110 Procedure CPT: Indication: CP ICD-9 Codes: Rhythm: Patient History: CHEST PAIN, HTN, FAMILY HX OF HEART DISEASE, Cardiac Medications: Medications in past 24 hours: Contrast: Total Dose (mL): Stress Results Protocol: Peak Dose (???g/kg/min): 30 Duration (min:sec): Atropine:(mg) None Target HR: 113 Double Product: [id number] Resting HR: 48 Resting BP: 144 / 65 Peak HR: 129 Peak BP: 190 / 44 Max Predicted HR: 133 97 % Max Predicted HR Stress Summary: BP Response: Reason for Termination: INFUSION COMPLETE,Target HR Cardiac Symptoms: NO SYMPTOMS ECG Analysis Resting EKG: Stress EKG: Arrhythmia: Echo Analysis Base Echo Analysis: Low Echo Anaylsis: Peak Echo Analysis: Recovery Echo: MEASUREMENTS (Male/Female) Normal Values CONCLUSIONS Mild EKG changes in response to dobutamine Normal echocardiogram in response to dobutamine with no evidence of wall motion abnormalities Dr. Everett Nicole MD (Electronically Signed) Final Date: 30 October 2023 13:14
[2023-10-30 14:09] VITALS: BP 155/70; PULSE 53
[2023-10-30] MEDS ORDERED: PRAVASTATIN SODIUM 20 MG TAB PO SCH (21:00)
== END 2023-10-30 14:17 | disposition home or self-care (01) ==
LOC: EC 15:42 → 6NMEDSUR 18:33
PROVIDERS: ADMIT Internal Medicine; ATTEND Internal Medicine
DX: R07.9 Chest pain, unspecified (principal); E78.5 Hyperlipidemia, unspecified; I10 Essential (primary) hypertension; E03.9 Hypothyroidism, unspecified; Z79.890 Hormone replacement therapy; Z79.899 Other long term (current) drug therapy; Z88.0 Allergy status to penicillin
CPT/HCPCS: 99285; 36415; 93005 ×2; 93351; 80061; 80053; 82150; 83690; 83735; 84484; 85025; 85610; 85730; 71046; G0378 ×2; J1250

== ENCOUNTER → 2023-12-04 | Outpatient (CLI) | payer MEDICARE, BC ==
--- NOTE | 2023-12-04 14:35 | XR ---
EXAMINATION TYPE: XR hand complete RT DATE OF EXAM: 12/04/2023 1:49 PM CLINICAL INDICATION:Female, 88 years old with history of [id number] RT HAND PAIN; [facility] COMPARISON: 07/17/2016 TECHNIQUE: XR hand complete RT Frontal, lateral and oblique views were obtained. FINDINGS: Normal alignment of the visualized joints. No acute osseous pathology is identified. Soft tissue swelling most proximal dorsal hand. Multifocal degeneration changes most pronounced at the wri sts joints. IMPRESSION: 1. Dorsal hand soft tissue swelling without evidence of fracture. Correlate for cellulitis.. 2. Moderate degeneration changes at the wrist.
== END | disposition home or self-care (01) ==
LOC: RADXRYALE 13:38
PROVIDERS: ATTEND Internal Medicine
DX: M19.031 Primary osteoarthritis, right wrist (principal); M79.89 Other specified soft tissue disorders

== ENCOUNTER 2024-04-30 19:37 | Inpatient (IN) | payer MEDICARE, BC ==
[2024-04-30] MEDS: SODIUM CHLORIDE 0.9% 500 ML 500 ML IV ONE (20:39)
[2024-04-30 20:49] LABS: Basophils # (A) 0.1 k/uL (0-0.2); Basophils % (A) 1 %; Eosinophils # (A) 0.1 k/uL (0-0.7); Eosinophils % (A) 1 %; HCT 34.9 % (34.0-46.0); HGB 11.3 gm/dL (11.4-16.0); Lymphocytes # (A) 1.4 k/uL (1.0-4.8); Lymphocytes % (A) 16 %; MCH 30.3 pg (25.0-35.0); MCHC 32.4 g/dL (31.0-37.0); MCV 93.5 fL (80.0-100.0); Mean Platelet Volume 6.8; Monocytes # (A) 0.3 k/uL (0-1.0); Monocytes % (A) 4 %; Neutrophils % (A) 78 %; Platelet Count 322 k/uL (150-450); RBC 3.73 m/uL (3.80-5.40); RDW 13.9 % (11.5-15.5); WBC 8.9 k/uL (3.8-10.6)
--- NOTE | 2024-04-30 20:52 | ED ---
General Adult HPI - General Chief complaint: Fall Stated complaint: Fall, Hip Pain Time Seen by Provider: 04/30/24 20:15 Source: patient, family, EMS, RN notes reviewed, old records reviewed Mode of arrival: EMS Limitations: no limitations - History of Present Illness Initial comments: Patient is an 89-year-old female presents emergency department for a fall from standing. Is not on blood thinners. No loss of consciousness. States she was pulling on a door handle when she lost her balance and landed on the deck on her left hip. Did not hit her head. No head trauma. No other acute complaints other than left hip pain. Was unable to ambulate and EMS was called to bring the patient to the hospital. Past medical history includes hypertension, hyperlipidemia, thyroid disorder. No other acute complaints at this time. Received fentanyl en route to the hospital. Presents for left hip pain. - Related Data Home Medications Medication Instructions Recorded Confirmed Levothyroxine Sodium [Synthroid] 112 mcg PO MOTUWETHFRSA 03/30/23 10/29/23 Pravastatin Sodium [Pravachol] 20 mg PO HS 05/29/23 10/29/23 Sennosides [Senokot] 8.6 mg PO DAILY PRN 10/29/23 10/29/23 Previous Rx's Medication Instructions Recorded amLODIPine [Norvasc] 10 mg PO DAILY #30 tab 04/04/23 Omeprazole [PriLOSEC] 40 mg PO AC-BRKFST #14 cap 10/30/23 Allergies Allergy/AdvReac Type Severity Reaction Status Date / Time Penicillins Allergy Severe Rash/Hives Verified 04/30/24 19:45 Review of Systems ROS Statement: Those systems with pertinent positive or pertinent negative responses have been documented in the HPI. Review of Systems: CONST: Denies fever EYES: Denies blurry vision ENT: Denies nasal congestion C/V: Denies Chest pain RESP: Denies shortness of breath GI: Denies abdominal pain : Denies dysuria SKIN: Denies rash. MSK: Endorses left hip pain NEURO: Denies headache ROS Other: All systems not noted in ROS Statement are negative. Past Medical History Past Medical History: Hyperlipidemia, Hypertension, Thyroid Disorder Additional Past Medical History / Comment(s): Hypothyroid, kidney stones, gout, see dr. sandhu's h & p History of Any Multi-Drug Resistant Organisms: None Reported Past Surgical History: Hysterectomy Additional Past Surgical History / Comment(s): COLONOSCOPY, BILAT CATARACTS REMOVED WITH LENS IMPLANTS Past Anesthesia/Blood Transfusion Reactions: No Reported Reaction Past Psychological History: No Psychological Hx Reported Smoking Status: Never smoker Past Alcohol Use History: None Reported Past Drug Use History: None Reported - Past Family History Mother Family Medical History: No Reported History General Exam - General Exam Comments Initial Comments: General: Appears in no acute distress. HEAD: Normal with no signs of head trauma. Negative Fierro sign. Negative raccoon eyes. EYES: PERRLA, EOMI, conjunctiva normal, no discharge. Pupils are 2 to 3 mm and equal bilaterally. ENT: Hearing grossly intact, normal oropharynx. RESPIRATORY: Clear breath sounds bilaterally. No wheezes, rales, or rhonchi. C/V: Regular rate and rhythm. S1 and S2 auscultated, no edema, peripheral pulses 2+ and intact throughout ABD: Abd is soft, nontender, nondistended EXT: Decreased range of motion of the left hip secondary to pain. Tenderness palpation over the lateral aspect of the left hip. Shortened left lower extremity it appears on exam. Neurovascular intact distal to the injury.No cervical, thoracic, lumbar spine tenderness to palpation. SKIN: No rashes or lesions observed on exposed skin. NEURO: Alert and oriented x 4. Limitations: no limitations Course Vital Signs 04/30/24 04/30/24 19:38 21:47 Temperature 97.9 F Pulse Rate 60 60 Respiratory 14 18 Rate Blood Pressure 122/59 135/61 O2 Sat by Pulse 98 97 Oximetry Medical Decision Making - Medical Decision Making Was pt. sent in by a medical professional or institution (, PA, APPRENTICE FUNERAL DIRECTOR, urgent care, hospital, or penitentiary...) When possible be specific @ -No Did you speak to anyone other than the patient for history (EMS, parent, family, police, friend...)? What history was obtained from this source @ -I spoke with patient's son who witnessed the fall and concurs that patient did not strike her head or lose consciousness. Did you review nursing and triage notes (agree or disagree)? Why? @ -I reviewed and agree with nursing and triage notes Were old charts reviewed (outside hosp., previous admission, EMS record, old EKG, old radiological studies, urgent care reports/EKG's, penitentiary records)? Report findings @ -No old charts were reviewed Differential Diagnosis (chest pain, altered mental status, abdominal pain women, abdominal pain men, vaginal bleeding, weakness, fever, dyspnea, syncope, headache, dizziness, GI bleed, back pain, seizure, CVA, palpatations, mental health, musculoskeletal)? @ -Differential Musculoskeletal Muscular strain, contusion, ligament sprain, fracture, arthritis, septic arthritis, bursitis, cellulitis, muscle spasm, nerve compression, DVT, arterial occlusion, herpes zoster, electrolyte abnormality, tumor.... This is not meant to be in all inclusive list EKG interpreted by me (3pts min.). @ -As above X-rays interpreted by me (1pt min.). @ -X-ray reveals what appears to be a left comminuted intertrochanteric fract ure however CT will be obtained to better visualize. CT interpreted by me (1pt min.). @ -CT of the left hip reveals a comminuted left intertrochanteric hip fracture. U/S interpreted by me (1pt. min.). @ -None done What testing was considered but not performed or refused? (CT, X-rays, U/S, labs)? Why? @ -None What meds were considered but not given or refused? Why? @ -None Did you discuss the management of the patient with other professionals (professionals i.e. , PA, APPRENTICE FUNERAL DIRECTOR, lab, RT, psych nurse, social media analyst, buyer liaison, teacher, regulatory compliance officer, director case)? Give summary @ -Discussed with on-call orthopedic surgeon Dr. Mcpherson who accepted the admission. Discussed with medical consulting team, [facility] Dr. Carter who accepted the consult. Was smoking cessation discussed for >3mins.? @ -No Was critical care preformed (if so, how long)? @ -No Were there social determinants of health that impacted care today? How? (Homelessness, low income, unemployed, alcoholism, drug addiction, transport ation, low edu. Level, literacy, decrease access to med. care, intermediate, rehab)? @ -No Was there de-escalation of care discussed even if they declined (Discuss DNR or withdrawal of care, Hospice)? DNR status @ -No What co-morbidities impacted this encounter? (DM, HTN, Smoking, COPD, CAD, Cancer, CVA, ARF, Chemo, Hep., AIDS, mental health diagnosis, sleep apnea, morbid obesity)? @ -None Was patient admitted / discharged? Hospital course, mention meds given and route, prescriptions, significant lab abnormalities, going to OR and other pertinent info. @ -Patient presents with mechanical fall. Does not meet criteria for trauma activation. Patient has no symptoms other than left hip injury. We will obtain x-ray. CT imaging of the brain and neck not indicated at this time. She has no other acute complaints. Vitals are within acceptable limits. EMS provide the patient with analgesia medications just prior to arrival and patient declines additional at this time. She will be given a small fluid bolus. EKG shows no signs of acute ischemia.Laboratory studies unremarkable. Imaging concerning for comminuted left intertrochanteric hip fracture updated the patient. Patient will be admitted. Discussed with on-call orthopedic surgeon Dr. Mcpherson who accepted the admission. Discussed with medical consulting team, [facility] Dr. Carter who accepted the consult. Undiagnosed new problem with uncertain prognosis? @ -No Drug Therapy requiring intensive monitoring for toxicity (Heparin, Nitro, I nsulin, Cardizem)? @ -No Were any procedures done? @ -No Diagnosis/symptom? @ -Fall, left intertrochanteric hip fracture comminuted Acute, or Chronic, or Acute on Chronic? @ -Acute Uncomplicated (without systemic symptoms) or Complicated (systemic symptoms)? @ -Complicated Side effects of treatment? @ -None Exacerbation, Progression, or Severe Exacerbation] @ -No Poses a threat to life or bodily function? @ -Yes - Lab Data Result diagrams: 04/30/24 20:37 04/30/24 20:37 Lab Results 04/30/24 04/30/24 04/30/24 Range/Units 20:37 20:37 20:37 WBC 8.9 (3.8-10.6) k/uL RBC 3.73 L (3.80-5.40) m/uL Hgb 11.3 L (11.4-16.0) gm/dL Hct 34.9 (34.0-46.0) % MCV 93.5 (80.0-100.0) fL MCH 30.3 (25.0-35.0) pg MCHC 32.4 (31.0-37.0) g/dL RDW 13.9 (11.5-15.5) % Plt Count 322 (150-450) k/uL MPV 6.8 Neutrophils % 78 % Lymphocytes % 16 % Monocytes % 4 % Eosinophils % 1 % Basophils % 1 % Neutrophils # 7.0 (1.3-7.7) k/uL Lymphocytes # 1.4 (1.0-4.8) k/uL Monocytes # 0.3 (0-1.0) k/uL Eosinophils # 0.1 (0-0.7) k/uL Basophils # 0.1 (0-0.2) k/uL PT 10.7 (10.0-12.5) sec INR 1.0 (<1.2) APTT 28.8 (22.0-30.0) sec Sodium 141 (137-145) mmol/L Potassium 4.0 (3.5-5.1) mmol/L Chloride 108 H (98-107) mmol/L Carbon Dioxide 28 (22-30) mmol/L Anion Gap 5 mmol/L BUN 24 H (7-17) mg/dL Creatinine 0.74 (0.52-1.04) mg/dL Est GFR (CKD-EPI)AfAm 84 (>60 ml/min/1.73 sqM) Est GFR (CKD-EPI)NonAf 73 (>60 ml/min/1.73 sqM) Glucose 123 H (74-99) mg/dL Calcium 9.0 (8.4-10.2) mg/dL Total Bilirubin 0.3 (0.2-1.3) mg/dL AST 24 (14-36) U/L ALT 18 (4-34) U/L Alkaline Phosphatase 79 (38-126) U/L Total Protein 5.9 L (6.3-8.2) g/dL Albumin 3.3 L (3.5-5.0) g/dL - EKG Data -: EKG Interpreted by Me EKG Comments: 12-lead Electrocardiogram Interpretation Note EKG was reviewed and interpreted by myself. 12-lead ECG performed at 2030 is interpreted by me as revealing sinus bradycardia with first-degree AV block at a rate of 57 beats per minute. [place] is normal. RI interval is 241 ms, QRS duration is 83 ms, QTc is 460 ms.. There were no ST or T wave abnormalities to suggest myocardial ischemia or injury. R wave progression across the precordium was satisfactory. By my interpretation this EKG is non-diagnostic for acute ischemia. Disposition Clinical Impression: Fall, Intertrochanteric fracture of left hip Disposition: ADMITTED IP TO THIS HOSP Condition: Stable Referrals: Codi Mercedes MD [Primary Care Provider] - 1-2 days Time of Disposition: 21:58
[2024-04-30 21:01] LABS: ALT 18 U/L (4-34); AST 24 U/L (14-36); African American GFR (CKD) 84 (>60 ml/min/1.73 sqM); Albumin 3.3 g/dL (3.5-5.0); Alkaline Phosphatase 79 U/L (38-126); Anion Gap 5 mmol/L; Blood Urea Nitrogen 24 mg/dL (7-17); Carbon Dioxide 28 mmol/L (22-30); Chloride 108 mmol/L (98-107); Glucose 123 mg/dL (74-99); Non-African American GFR(CKD) 73 (>60 ml/min/1.73 sqM); Sodium 141 mmol/L (137-145); Total Bilirubin 0.3 mg/dL (0.2-1.3); Total Protein 5.9 g/dL (6.3-8.2)
[2024-04-30 21:09] LABS: Partial Thromboplastin Time 28.8 sec (22.0-30.0); Prothrombin Time 10.7 sec (10.0-12.5)
--- NOTE | 2024-04-30 21:20 | XR ---
EXAMINATION TYPE: XR Hip LT and AP Pelvis DATE OF EXAM: 04/30/2024 9:11 PM CLINICAL INDICATION: Female, 89 years old with history of pain, fall; COMPARISON: None. TECHNIQUE: XR Hip LT and AP Pelvis; hip was examined in the frontal and lateral projections and a AP pelvis. FINDINGS/IMPRESSION: Abnormal appearance of the left femur with lucency through the intertrochanteric region with possible avulsion of the lesser trochanter. Further evaluation with CT recommended findings highly suspicious for proximal left humerus fracture.
--- NOTE | 2024-04-30 21:20 | XR ---
EXAMINATION TYPE: XR chest 1V DATE OF EXAM: 04/30/2024 9:07 PM CLINICAL INDICATION: Female, 89 years old with history of PRE SURGICAL; [facility] COMPARISON: Chest radiographs from 10/29/2023 TECHNIQUE: XR chest 1V Frontal view of the chest. FINDINGS: Lungs/Pleura: There is flattening of the diaphragm with increased lucency of the lungs. No evidence o f pneumothorax, pleural effusion or focal consolidation. Pulmonary vascularity: Unremarkable. Heart/mediastinum: Cardiomediastinal silhouette is unremarkable. A loop recorder projects over the le ft thorax over the heart. Musculoskeletal: No acute osseous pathology. Other findings: None Lines/Tubes: IMPRESSION: No acute cardiopulmonary disease/process.
[2024-04-30] MEDS: MORPHINE SULFATE 2 MG/ML SYRINGE IVP STA (21:36)
[2024-04-30] MEDS: MORPHINE SULFATE 4 MG/ML SYRINGE IVP STA (21:50)
--- NOTE | 2024-04-30 21:57 | CT ---
EXAMINATION TYPE: CT hip LT wo con CT DLP: 378 mGycm, Automated exposure control for dose reduction was used. DATE OF EXAM: 04/30/2024 9:49 PM COMPARISON: Extremity radiograph same day. CLINICAL INDICATION:Female, 89 years old with history of hip fracture; PHH, Left hip Fx. TECHNIQUE: Axial images were obtained of the left hip without the use of IV contrast. Additional cor onal and sagittal reformatted images and soft tissue and bone window were obtained for review. 3-D re construction was created on a separate workstation. FINDINGS: Acute displaced comminuted left intertrochanteric fracture. There is separation of the less er trochanter approximately 2.4 cm from the femur. Nondisplaced comminuted appearance of the greater trochanter. Lateral apex angulation. No dislocation. Osteoarthritic change of the left hip with media l joint space narrowing and marginal osteophytosis. Surrounding soft tissue swelling and surrounding edema. No radiopaque foreign body identified. Degenerative changes of the left SI joint with vacuum disease. Multilevel degenerative disc disease a nd facet arthropathy of the visualized lower lumbar spine. Sacralization of L5 vertebral body. Fat fi lled left inguinal hernia. Atherosclerotic calcification of the visualized aorta and its branches IMPRESSION: Acute comminuted displaced left intertrochanteric fracture.
[2024-04-30] MEDS ORDERED: NALOXONE 0.4 MG/ML 1 ML VIAL IV PRN (22:16)
[2024-04-30] MEDS ORDERED: ONDANSETRON 4 MG/2 ML VIAL IVP PRN (22:16)
[2024-04-30] MEDS ORDERED: MELATONIN 1 MG TAB PO PRN (22:20)
[2024-04-30] MEDS: SODIUM CHLORIDE 0.9% 1,000 ML IV SCH (23:40)
[2024-05-01] MEDS: MORPHINE SULFATE 4 MG/ML SYRINGE IV PRN (02:18)
[2024-05-01 06:54] LABS: Basophils % (A) 0 %; Eosinophils % (A) 0 %; HCT 31.5 % (34.0-46.0); HGB 10.5 gm/dL (11.4-16.0); Lymphocytes # (A) 1.1 k/uL (1.0-4.8); Lymphocytes % (A) 15 %; MCH 31.4 pg (25.0-35.0); MCHC 33.3 g/dL (31.0-37.0); MCV 94.4 fL (80.0-100.0); Mean Platelet Volume 7.3; Monocytes # (A) 0.4 k/uL (0-1.0); Monocytes % (A) 6 %; Neutrophils # (A) 6.1 k/uL (1.3-7.7); Neutrophils % (A) 79 %; Platelet Count 275 k/uL (150-450); RBC 3.34 m/uL (3.80-5.40); RDW 14.2 % (11.5-15.5); WBC 7.8 k/uL (3.8-10.6)
[2024-05-01 07:26] LABS: ALT 16 U/L (4-34); AST 23 U/L (14-36); African American GFR (CKD) >90 (>60 ml/min/1.73 sqM); Albumin 3.1 g/dL (3.5-5.0); Alkaline Phosphatase 68 U/L (38-126); Anion Gap 5 mmol/L; Blood Urea Nitrogen 24 mg/dL (7-17); Calcium 8.6 mg/dL (8.4-10.2); Carbon Dioxide 25 mmol/L (22-30); Chloride 112 mmol/L (98-107); Glucose 138 mg/dL (74-99); Non-African American GFR(CKD) 86 (>60 ml/min/1.73 sqM); Potassium 4.2 mmol/L (3.5-5.1); Sodium 142 mmol/L (137-145); Total Bilirubin 0.6 mg/dL (0.2-1.3); Total Protein 5.6 g/dL (6.3-8.2)
[2024-05-01] MEDS ORDERED: ONDANSETRON 4 MG/2 ML VIAL IVP PRN (09:25)
[2024-05-01] MEDS: LEVOTHYROXINE 112 MCG TAB PO SCH (10:42)
[2024-05-01] MEDS ORDERED: TRANEXAMIC ACID 1,000 MG in SODIUM CHLORIDE 0.9% 100 ML IVPB PRN (11:29)
--- NOTE | 2024-05-01 11:35 | P.HPOR ---
History of Present Illness H&P Date: 05/01/24 Chief Complaint: Left hip pain This is an 89-year-old female who fell in her home last evening sustaining injury to her left hip. The patient denies head or neck injury in the fall. She was brought to the emergency department and is admitted to our service for surgical intervention. Past Medical History Past Medical History: Hyperlipidemia, Hypertension, Thyroid Disorder Additional Past Medical History / Comment(s): Hypothyroid, kidney stones, gout, see dr. sandhu's h & p History of Any Multi-Drug Resistant Organisms: None Reported Past Surgical History: Hysterectomy Additional Past Surgical History / Comment(s): COLONOSCOPY, BILAT CATARACTS REMOVED WITH LENS IMPLANTS Past Anesthesia/Blood Transfusion Reactions: No Reported Reaction Past Psychological History: No Psychological Hx Reported Smoking Status: Never smoker Past Alcohol Use History: None Reported Past Drug Use History: None Reported - Past Family History Mother Family Medical History: No Reported History Medications and Allergies Home Medications Medication Instructions Recorded Confirmed Type Levothyroxine Sodium [Synthroid] 112 mcg PO MOTUWETHFRSA 03/30/23 05/01/24 History amLODIPine [Norvasc] 10 mg PO DAILY #30 tab 04/04/23 05/01/24 Rx Omeprazole [PriLOSEC] 20 mg PO AC-BRKFST 05/01/24 05/01/24 History Allergies Allergy/AdvReac Type Severity Reaction Status Date / Time Penicillins Allergy Severe Rash/Hives Verified 05/01/24 09:26 Physical Examination This is a pleasant 89-year-old female in no acute distress. She is alert and oriented 3. Exam of the head and neck reveals no obvious deformity. She has full cervical spine motion without difficulty or pain. Exam of the upper extremities is unremarkable. She has fairly good shoulder, elbow, wrist and finger motion bilaterally. Neurovascular status of the upper extremities is intact. Exam of the lower extremity reveals shortening and external rotation to the left leg. She has full foot and ankle motion without difficulty. Neurovascular status to the lower extremities is intact. Motion is not evaluated today. Results X-rays and CT scan of the left hip reveal an intertrochanteric fracture with a large lesser trochanteric fragment. No other fractures noted. - Labs Labs: Abnormal Lab Results - Last 24 Hours (Table) 04/30/24 04/30/24 05/01/24 Range/Units 20:37 20:37 06:20 RBC 3.73 L 3.34 L (3.80-5.40) m/uL Hgb 11.3 L 10.5 L (11.4-16.0) gm/dL Hct 31.5 L (34.0-46.0) % Chloride 108 H (98-107) mmol/L BUN 24 H (7-17) mg/dL Glucose 123 H (74-99) mg/dL Total Protein 5.9 L (6.3-8.2) g/dL Albumin 3.3 L (3.5-5.0) g/dL 05/01/24 Range/Units 06:20 RBC (3.80-5.40) m/uL Hgb (11.4-16.0) gm/dL Hct (34.0-46.0) % Chloride 112 H (98-107) mmol/L BUN 24 H (7-17) mg/dL Glucose 138 H (74-99) mg/dL Total Protein 5.6 L (6.3-8.2) g/dL Albumin 3.1 L (3.5-5.0) g/dL H & H 04/30/24 05/01/24 Range/Units 20:37 06:20 Hgb 11.3 L 10.5 L (11.4-16.0) gm/dL Hct 34.9 31.5 L (34.0-46.0) % Coagulation 04/30/24 Range/Units 20:37 INR 1.0 (<1.2) Result Diagrams: 05/01/24 06:20 05/01/24 06:20 Assessment and Plan (1) Fall Current Visit: Yes Status: Acute Code(s): W19.XXXA - UNSPECIFIED FALL, INITIAL ENCOUNTER SNOMED Code(s): 8642647 (2) Intertrochanteric fracture of left hip Current Visit: Yes Status: Acute Code(s): S72.142A - DISPLACED INTERTROCHANTERIC FRACTURE OF LEFT FEMUR, INIT SNOMED Code(s): 917403279 Plan: The clinical and x-ray findings are discussed with the patient. It is recommended that she undergo closed reduction with insertion of intertrochanteric nail of the left hip. Procedures discussed in detail including the possible risks and outcomes of the surgery. It is recommended th at she be transferred to inpatient rehabilitation postoperatively.
[2024-05-01 14:12] VITALS: BMI 18.8
[2024-05-01] MEDS ORDERED: QUEtiapine 25 MG TAB PO PRN (16:08)
--- NOTE | 2024-05-01 16:13 | P.CONS ---
History of Present Illness - Reason for Consult Consult date: 05/01/24 Medical management, left hip fracture - History of Present Illness This is a very pleasant 89-year-old female who was admitted under orthopedic services status post mechanical fall from standing while in the home. Patient lost her balance and landed on her left hip and was unable to ambulate. Patient daughter who lives with her called ambulance and was brought to the hospital for further evaluation. Patient reports she follows with Dr. Mercedes in the outpatient setting with a past medical history of hypertension, hyperlipidemia, hypothyroidism. Patient also noted to have a loop recorder that she reports was received by Dr. Graves earlier this year and has a follow-up appointment later in the next 2 months. Patient did undergo recent stress testing in October which was normal and would consider this patient a low risk for surgical intervention and patient was independent prior to this and would improve her quality of life. Patient is willing to proceed and plans on orthopedic intervention on 05/02/2024. Chest x-ray shows no acute cardiopulmonary process, hip x-ray shows abnormal appearance of the left femur with lucency through the intertrochanteric region with possible avulsion of the lesser trochanter although highly suspicious for a proximal femur fracture. CT of the hip was performed showing an acute comminuted displaced left intertrochanteric fracture and also of note degenerative changes of the lower lumbar spine. Labs reviewed on admission with a white count of 8.9, hemoglobin 11.3, platelets 322, INR 1.0, sodium 141, potassium 4.0, BUN 24 with a creatinine of 0.74, total bili 0.3, LFTs within normal limits. REVIEW OF SYSTEMS: CONSTITUTIONAL: No fever, no malaise,. CARDIOVASCULAR: No chest pain, no palpitations, no syncope. PULMONARY: No reports of shortness of breath or cough GASTROINTESTINAL: No diarrhea, no nausea, no vomiting, no abdominal pain. NEUROLOGICAL: No headaches, reports of weakness, inability to ambulate and left hip pain unless not moving PHYSICAL EXAMINATION: GENERAL: The patient is alert and oriented x3, elderly appearing, well-developed HEENT: Pupils are round and equally reacting to light. EOMI. No scleral icterus. No conjunctival pallor. Normocephalic, atraumatic. No pharyngeal erythema. No thyromegaly. CARDIOVASCULAR: S1 and S2 present. No murmurs, rubs, or gallops. PULMONARY: Diminished breath sounds bilaterally otherwise clear to auscultation with no wheezing or rhonchi noted ABDOMEN: Soft, thin, nontender, nondistended, normoactive bowel sounds. No palpable organomegaly. MUSCULOSKELETAL: No joint swelling or deformity. EXTREMITIES: No cyanosis, clubbing, or pedal edema. Left lower extremity mildly externally rotated and shortened with positive pulses noted NEUROLOGICAL: Gross neurological examination did not reveal any focal deficits. Diffusely weak SKIN: No rashes. Assessment and plan Left intertrochanteric fracture with a large lesser trochanteric fragment status post mechanical fall and landing on her hip History of hypertension History of hyperlipidemia History of hypothyroidism History of loop recorder placement with Dr. Graves earlier this year GI prophylaxis DVT prophylaxis Full Code Plan Patient admitted under orthopedic services and tentatively scheduled for surgical intervention on 05/02/2024 Medications reviewed and appropriate medications resumed. Patient takes Norvasc 10 mg daily although will hold for now to evaluate for any postoperative hypotension Pain management per orthopedic service although strongly recommend limiting narcotics given patient's age. Will add Toradol and also recommend Tylenol as needed Will await surgical report and patient will need PT/OT therapy evaluation and patient reports she most likely will be going to rehab and is agreeable Patient is considered a low risk for surgical intervention and this would improve her quality of life as patient was independent prior to this fall. Thank you for this consultation and we will continue to follow with orthopedics during hospitalization The impression and plan of care has been dictated by Benita Barragan, Nurse Practitioner as directed. Dr. Seema MD I have performed a history and physical examination and medical decision making of this patient, discussed the same with the dictator, and agree with the dictators assessment and plan as written, documented as a scribe. Based on total visit time, I have performed more than 50% of this visit. Past Medical History Past Medical History: Hyperlipidemia, Hypertension, Thyroid Disorder Additional Past Medical History / Comment(s): Hypothyroid, kidney stones, gout, see dr. graves's h & p History of Any Multi-Drug Resistant Organisms: None Reported Past Surgical History: Hysterectomy Additional Past Surgical History / Comment(s): COLONOSCOPY, BILAT CATARACTS REMOVED WITH LENS IMPLANTS Past Anesthesia/Blood Transfusion Reactions: No Reported Reaction Past Psychological History: No Psychological Hx Reported Smoking Status: Never smoker Past Alcohol Use History: None Reported Past Drug Use History: None Reported - Past Family History Mother Family Medical History: No Reported History Medications and Allergies Home Medications Medication Instructions Recorded Confirmed Type Levothyroxine Sodium [Synthroid] 112 mcg PO MOTUWETHFRSA 03/30/23 05/01/24 H istory amLODIPine [Norvasc] 10 mg PO DAILY #30 tab 04/04/23 05/01/24 Rx Omeprazole [PriLOSEC] 20 mg PO AC-BRKFST 05/01/24 05/01/24 History Allergies Allergy/AdvReac Type Severity Reaction Status Date / Time Penicillins Allergy Severe Rash/Hives Verified 05/01/24 09:26 Physical Exam Vitals: Vital Signs Temp Pulse Pulse Resp BP BP Pulse Ox 05/01/24 07:34 97.9 F 62 17 133/61 95 05/01/24 00:49 97.7 F 55 L 18 143/55 96 05/01/24 00:31 98.0 F 55 L 16 127/58 94 L 04/30/24 21:47 60 18 135/61 97 04/30/24 19:38 97.9 F 60 14 122/59 98 Intake and Output 04/30/24 05/01/24 05/01/24 22:59 06:59 14:59 Other: Weight 49.895 kg 49.895 kg Results CBC & Chem 7: 05/01/24 06:20 05/01/24 06:20 Labs: Abnormal Lab Results - Last 24 Hours (Table) 04/30/24 04/30/24 05/01/24 Range/Units 20:37 20:37 06:20 RBC 3.73 L 3.34 L (3.80-5.40) m/uL Hgb 11.3 L 10.5 L (11.4-16.0) gm/dL Hct 31.5 L (34.0-46.0) % Chloride 108 H (98-107) mmol/L BUN 24 H (7-17) mg/dL Glucose 123 H (74-99) mg/dL Total Protein 5.9 L (6.3-8.2) g/dL Albumin 3.3 L (3.5-5.0) g/dL 05/01/24 Range/Units 06:20 RBC (3.80-5.40) m/uL Hgb (11.4-16.0) gm/dL Hct (34.0-46.0) % Chloride 112 H (98-107) mmol/L BUN 24 H (7-17) mg/dL Glucose 138 H (74-99) mg/dL Total Protein 5.6 L (6.3-8.2) g/dL Albumin 3.1 L (3.5-5.0) g/dL
[2024-05-01] MEDS: MORPHINE SULFATE 2 MG/ML SYRINGE IV PRN (17:57)
[2024-05-01] MEDS: KETOROLAC 15 MG/ML 1 ML VIAL IVP PRN (20:48)
[2024-05-01] MEDS: PRAVASTATIN SODIUM 20 MG TAB PO SCH (22:03)
[2024-05-02] MEDS: PANTOPRAZOLE 40 MG/10 ML VIAL IVP SCH (10:43)
[2024-05-02] MEDS ORDERED: TRANEXAMIC ACID 1,000 MG in SODIUM CHLORIDE 0.9% 100 ML IVPB PRN (11:29)
[2024-05-02] MEDS: IV FLUID CONTINUATION 1,000 ML IV ONE (12:48)
--- NOTE | 2024-05-02 12:58 | P.PN ---
Subjective Progress Note Date: 05/02/24 This is a very pleasant 89-year-old female who was admitted under orthopedic services status post mechanical fall from standing while in the home. Patient lost her balance and landed on her left hip and was unable to ambulate. Patient daughter who lives with her called ambulance and was brought to the hospital for further evaluation. Patient reports she follows with Dr. Mercedes in the outpatient setting with a past medical history of hypertension, hyperlipidemia, hypothyroidism. Patient also noted to have a loop recorder that she reports was received by Dr. Graves earlier this year and has a follow-up appointment later in the next 2 months. Patient did undergo recent stress testing in October which was normal and would consider this patient a low risk for surgical intervention and patient was independent prior to this and would improve her quality of life. Patient is willing to proceed and plans on orthopedic intervention on 05/02/2024. Chest x-ray shows no acute cardiopulmonary process, hip x-ray shows abnormal appearance of the left femur with lucency through the intertrochanteric region with possible avulsion of the lesser trochanter although highly suspicious for a proximal femur fracture. CT of the hip was performed showing an acute comminuted displaced left intertrochanteric fracture and also of note degenerative changes of the lower lumbar spine. Labs reviewed on admission with a white count of 8.9, hemoglobin 11.3, platelets 322, INR 1.0, sodium 141, potassium 4.0, BUN 24 with a creatinine of 0.74, total bili 0.3, LFTs within normal limits. 05/02/2024 Patient is eval today in follow-up on the medical floor. Indwelling Mobley catheter has been placed. She is currently pending surgical repair with an IM nailing of the left hip fracture. Patient does report that she has having some bloody vaginal discharge states that she has a follow-up down in [place] for thi s. REVIEW OF SYSTEMS: CONSTITUTIONAL: No fever, no malaise,. CARDIOVASCULAR: No chest pain, no palpitations, no syncope. PULMONARY: No reports of shortness of breath or cough GASTROINTESTINAL: No diarrhea, no nausea, no vomiting, no abdominal pain. NEUROLOGICAL: No headaches, reports of weakness, inability to ambulate and left hip pain unless not moving PHYSICAL EXAMINATION: GENERAL: The patient is alert and oriented x3, elderly appearing, well-developed HEENT: Pupils are round and equally reacting to light. EOMI. No scleral icterus. No conjunctival pallor. Normocephalic, atraumatic. No pharyngeal erythema. No thyromegaly. CARDIOVASCULAR: S1 and S2 present. No murmurs, rubs, or gallops. PULMONARY: Diminished breath sounds bilaterally otherwise clear to auscultation with no wheezing or rhonchi noted ABDOMEN: Soft, thin, nontender, nondistended, normoactive bowel sounds. No palpa ble organomegaly. MUSCULOSKELETAL: No joint swelling or deformity. EXTREMITIES: No cyanosis, clubbing, or pedal edema. Left lower extremity mildly externally rotated and shortened with positive pulses noted NEUROLOGICAL: Gross neurological examination did not reveal any focal deficits. Diffusely weak SKIN: No rashes. Assessment and plan Left intertrochanteric fracture with a large lesser trochanteric fragment status post mechanical fall and landing on her hip History of hypertension History of hyperlipidemia History of hypothyroidism History of loop recorder placement with Dr. Graves earlier this year GI prophylaxis DVT prophylaxis Full Code Plan Patient admitted under orthopedic services and tentatively scheduled for surgical intervention on 05/02/2024 Medications reviewed and appropriate medications resumed. Patient takes Norvasc 10 mg daily although will hold for now to evaluate for any postoperative hypotension Pain management per orthopedic service although strongly recommend limiting narcotics given patient's age. Will add Toradol and also recommend Tylenol as needed Will await surgical report and patient will need PT/OT therapy evaluation and patient reports she most likely will be going to rehab and is agreeable Patient is considered a low risk for surgical intervention and this would improve her quality of life as patient was independent prior to this fall. Thank you for this consultation and we will continue to follow with orthopedics during hospitalization The impression and plan of care has been dictated by Kailey Franks Nurse Practitioner as directed. Dr. Seema MD I have performed a history and physical examination and medical decision making of this patient, discussed the same with the dictator, and agree with the dictators assessment and plan as written, documented as a scribe. Based on total visit time, I have performed more than 50% of this visit. Objective - Vital Signs Vital signs: Vital Signs Temp 97.7 F 05/02/24 12:45 Pulse 66 05/02/24 12:45 Resp 18 05/02/24 12:45 BP 157/80 05/02/24 12:45 Pulse Ox 96 05/02/24 12:45 FiO2 Intake & Output 05/01/24 05/02/24 05/02/24 18:59 06:59 18:59 Intake Total 450 Output Total 220 500 Balance 230 -500 Weight 49.895 kg Intake: Intake, IV Titration 450 Amount Sodium Chloride 0.9% 1, 400 000 ml @ 50 mls/hr IV . Q20H [facility] Rx#:[id number] ceFAZolin 2 gm In Sodium 50 Chloride 0.9% 50 ml @ 100 mls/hr IVPB ONCE ONE Rx# :[id number] Output: Urine 220 500 Uretheral (Mobley) 220 Other: Voiding Method Indwelling Catheter - Labs CBC & Chem 7: 05/01/24 06:20 05/01/24 06:20
[2024-05-02] MEDS: ONDANSETRON 4 MG/2 ML VIAL IVP STA (13:07)
[2024-05-02] MEDS ORDERED: HYDROmorphone 0.5 MG/0.5 ML SYRINGE IVP PRN (14:17)
[2024-05-02] MEDS ORDERED: MAGNESIUM HYDROXIDE 2,400 MG/30 ML CUP PO PRN (14:17)
[2024-05-02] MEDS ORDERED: NALOXONE 0.4 MG/ML 1 ML VIAL IV PRN (14:17)
[2024-05-02] MEDS ORDERED: PROPOFOL 10 MG/ML 20 ML VIAL IV ONE (14:27)
[2024-05-02] MEDS ORDERED: SUCCINYLCHOLINE CHLORIDE 200 MG/10 ML VIAL IV ONE (14:27)
[2024-05-02] MEDS ORDERED: LIDOCAINE 1% INJ 10MG/ML (20 ML MDV) ONE (14:27)
[2024-05-02] MEDS ORDERED: TRANEXAMIC 1,000 MG/100ML-NACL PREMIX BAG ONE (14:27)
[2024-05-02] MEDS ORDERED: GLYCOPYRROLATE 0.2 MG/ML 2 ML VIAL ONE (14:27)
[2024-05-02] MEDS ORDERED: fentaNYL (PF) 50 MCG/ML 2 ML AMP ONE (14:27)
[2024-05-02] MEDS: SODIUM CHLORIDE 0.9% 100 ML with ceFAZolin 2,000 MG IV ONE (14:31)
[2024-05-02] MEDS: LACTATED RINGERS 1,000 ML IV ONE (15:30)
--- NOTE | 2024-05-02 15:32 | P.OP ---
Date of Procedure: 05/02/24 Procedure(s) Performed: PREOPERATIVE DIAGNOSIS: Left hip intertrochanteric fracture. POSTOPERATIVE DIAGNOSIS: Left hip intertrochanteric fracture. OPERATION: Left hip intertrochanteric fracture closed reduction and intramedullary nailing using Synthes IT nail. SHEET METAL FABRICATOR: Stacey Campa PA-C (Assistance with: Patient positioning, retraction, exposure, hemostasis, fixation, irrigation, closure, dressing) ANESTHESIA: Gen. ESTIMATED BLOOD LOSS: 50 mL. COMPLICATIONS: None OPERATIVE FINDINGS: See dictation INDICATIONS: Gertrudis is an 89-year-old thin female with a history of left intertrochanteric fracture. The patient presents to the operating room today for closed reduction and intramedullary nailing. I discussed the risks of surgery in detail as being inclusive of but not limited to: Bleeding, infection, scarring, discomfort, blood vessel and/or nerve damage, need for further surgery , malunion, nonunion, gait disturbance including persistent or permanent limp, limb length inequality, arthritis, hardware failure, blood clot, pulmonary embolism, , and other risks. The consent form has been signed. PROCEDURE: After appropriate consent was obtained, the patient was taken to the operating room and placed in supine position. [Spinal] anesthetic was administered and after confirmation of adequate anesthesia, the patient was carefully placed in the supine position on the operating room table in the fracture table. The patient was placed up against a well-padded peroneal post. Care was taken to make sure about that all pressure points were adequately padded. The affected leg was placed in boot traction and the unaffected leg was placed in a well leg rascon. Using gentle longitudinal distraction as well as adduction and internal rotation, the fracture was reduced as assessed by AP and lateral C-arm imaging. Once a satisfactory reduction had been obtained, the thigh was prepped and draped in the usual aseptic fashion using ChloraPrep. Ioban drape was used for the case and the patient received intravenous antibiotics prior to incision. Timeout was called, confirming patient identity, side, procedure, and administration of antibiotics. The incision was then created with a #10 blade just proximal to the greater trochanter laterally. It was carried down through skin into the subcutaneous tissues and through fascia. Hemostasis was obtained using electrocautery. The tip of the greater trochanter was palpated and a guide pin was placed at the tip and directed into the femoral shaft as assessed with C-arm imaging. Once optimal pin position had been obtained, a 17 mm reamer was used over the guide pin to create a path for the IT nail. IT nail selected was assembled to the insertion jig on the back table and bushings were checked for accuracy. The nail was then inserted using gentle mallet taps until it was fully deployed. The amount of rotation of the implant was assessed based on the amount of anteversion of the femoral neck. This was rotated to match the patient's femoral neck anteversion and the helical blade guide was placed through the insertion jig and through an incision on the lateral side of the thigh more distal than the first. Once this guide was placed against the lateral cortex of the femur, a guide pin was drilled into the central region of the femoral head and neck as based on AP and lateral C-arm imaging. Once optimal pin position had been obtained, the guidewire was measured and appropriately sized helical blade was selected. The path for the helical blade was prepared using a tapered reamer. The helical blade was then inserted using gentle mallet taps along the guidewire until it was fully deployed. There was no displacement of the fracture during this step. The anti-rotation screw was locked down and the insertion apparatus for the helical blade was removed. The guide pin was then removed. Traction was then removed from the leg and the distal interlock was placed through the jig using standard technique. Finally, the insertion jig for the nail was removed and final C-arm images were taken and saved in both AP and lateral planes. The final x-rays showed satisfactory positioning of the implant and good reduction of the fracture. The top of the nail was plugged with a small quantity of bone wax and the incisions were then thoroughly irrigated with normal saline. Final hemostasis was obtained using electrocautery and closure of the fascia was performed using 0-Vicryl suture. 2-0 Vicryl suture was used in the subcutaneous tissues and valorie were used for the skin. Sterile dressing was then applied and the patient was carefully removed from the fracture table frame and placed onto the stretcher. The patient tolerated the procedure well. There were no complications and [] of blood loss. The patient was then subsequently transferred to recovery room in stable condition. Sponge and needle counts were correct.
--- NOTE | 2024-05-02 15:56 | XR ---
Left hip limited. HISTORY: Comminuted intertrochanteric fracture. COMPARISON: 04/30/2024. TECHNIQUE: 2 intraoperative spot films and 48 seconds of fluoroscopy are provided. FINDINGS: There is been a significant transfemoral neck screw and intramedullary mine in the proximal right femu r for fixation of a intertrochanteric fracture of the left hip. There is near-anatomic alignment. IMPRESSION: Open reduction and internal fixation of a left intertrochanteric fracture as described.
--- NOTE | 2024-05-02 16:04 | FL ---
EXAMINATION TYPE: FL guidance operating room DATE OF EXAM: 05/02/2024 FLUOROSCOPY COMMINUTED LEFT INTERTROCHANTERIC FEMUR FRACTURE LEFT HIP IT NAIL WITH DR. NARESH EDOUARD TIME 48.2 SEC DAP 2.7830
[2024-05-02] MEDS: HYDROmorphone 0.5 MG/0.5 ML SYRINGE IVP PRN (16:13)
[2024-05-02] MEDS: LACTATED RINGERS 1,000 ML IV SCH (19:04)
[2024-05-02] MEDS: ACETAMINOPHEN TAB 325 MG TAB PO PRN (22:16)
[2024-05-02] MEDS: SENNOSIDES-DOCUSATE SODIUM 1 EACH TAB PO SCH (22:16)
[2024-05-03] MEDS: HYDROcodone/APAP 5-325MG 1 EACH TAB PO PRN ×2 (00:51→16:24)
[2024-05-03 01:03] LABS: Basophils # (A) 0.06 X 10*3/uL (0.00-0.10); Basophils % (A) 0.6 %; Eosinophils # (A) 0.11 X 10*3/uL (0.04-0.35); Eosinophils % (A) 1.1 %; HCT 31.3 % (37.2-46.3); HGB 9.9 g/dL (12.0-15.0); Lymphocytes # (A) 1.17 X 10*3/uL (0.90-5.00); Lymphocytes % (A) 11.3 %; MCH 31.3 pg (27.0-32.0); MCHC 31.6 g/dL (32.0-37.0); MCV 99.1 FL (80.0-97.0); Mean Platelet Volume 9.4 FL (9.5-12.2); Monocytes # (A) 0.69 X 10*3/uL (0.20-1.00); Monocytes % (A) 6.6 %; NRBC Per 100 WBC 0 X 10*3/uL (0.00-0.01); Neutrophils # (A) 8.31 X 10*3/uL (1.80-7.70); Neutrophils % (A) 79.8 %; Platelet Count 237 X 10*3/uL (140-440); RBC 3.16 X 10*6/uL (4.10-5.20); RDW 14.4 % (11.5-14.5)
[2024-05-03] MEDS: HYDROmorphone 0.5 MG/0.5 ML SYRINGE IVP PRN (03:41)
--- NOTE | 2024-05-03 10:06 | P.PN ---
Subjective Progress Note Date: 05/03/24 This is an 89-year-old female who is status post closed reduction and intramedullary nailing of the left hip. This is postoperative day #1 patient is seen and evaluated at bedside today. Patient states that her pain is well- controlled and she was able to work with physical therapy and transfer to a chair today. Patient denies any new complaints today. Objective - Vital Signs Vital signs: Vital Signs Temp 98.3 F 05/03/24 00:35 Pulse 67 05/03/24 00:35 Resp 16 05/03/24 00:35 BP 140/62 05/03/24 00:35 Pulse Ox 97 05/03/24 00:35 FiO2 Intake & Output 05/02/24 05/03/24 05/03/24 18:59 06:59 18:59 Intake Total 1750 520 Output Total 50 800 Balance 1700 -280 Intake: IV 1300 Intake, IV Titration 450 Amount Sodium Chloride 0.9% 1, 400 000 ml @ 50 mls/hr IV . Q20H [facility] Rx#:[id number] ceFAZolin 2 gm In Sodium 50 Chloride 0.9% 50 ml @ 100 mls/hr IVPB Q8H [facility] Rx#: [id number] Oral 520 Output: Urine 800 Estimated Blood Loss 50 Other: Voiding Method Indwelling Catheter Indwelling Catheter - Exam Vital signs are stable. Patient is in no acute distress and is alert and oriented 3. Calf is soft and nontender to palpation. Dressing is clean, dry, and intact. Patient has full foot and ankle motion without pain or difficulty. Sensation intact. Neurovascular status and circulatory status are intact. - Labs CBC & Chem 7: 05/02/24 17:38 05/01/24 06:20 Labs: Abnormal Lab Results - Last 24 Hours (Table) 05/02/24 Range/Units 17:38 WBC 10.40 H (4.50-10.00) X 10*3/uL RBC 3.16 L (4.10-5.20) X 10*6/uL Hgb 9.9 L (12.0-15.0) g/dL Hct 31.3 L (37.2-46.3) % MCV 99.1 H (80.0-97.0) FL MCHC 31.6 L (32.0-37.0) g/dL MPV 9.4 L (9.5-12.2) FL Immature Gran # 0.06 H (0.00-0.04) X 10*3/uL Neutrophils # 8.31 H (1.80-7.70) X 10*3/uL Assessment and Plan Assessment: Status post closed reduction and intramedullary nailing of the left hip (1) Fall Current Visit: Yes Status: Acute Code(s): W19.XXXA - UNSPECIFIED FALL, INITIAL ENCOUNTER SNOMED Code(s): 1698382 (2) Intertrochanteric fracture of left hip Current Visit: Yes Status: Acute Code(s): S72.142A - DISPLACED INTERTROCHANTERIC FRACTURE OF LEFT FEMUR, INIT SNOMED Code(s): 051590328 Plan: Continue routine postop care and pain control. Continue anticoagulation. Toe-touch weightbearing with a walker. Leave dressing in place for 7 days. Appreciate input from internal medicine. Anticipate discharge to [facility] in the next 24-48 hours.
--- NOTE | 2024-05-03 12:20 | P.PN ---
Subjective Progress Note Date: 05/03/24 This is a very pleasant 89-year-old female who was admitted under orthopedic services status post mechanical fall from standing while in the home. Patient lost her balance and landed on her left hip and was unable to ambulate. Patient daughter who lives with her called ambulance and was brought to the hospital for further evaluation. Patient reports she follows with Dr. Mercedes in the outpatient setting with a past medical history of hypertension, hyperlipidemia, hypothyroidism. Patient also noted to have a loop recorder that she reports was received by Dr. Graves earlier this year and has a follow-up appointment later in the next 2 months. Patient did undergo recent stress testing in October which was normal and would consider this patient a low risk for surgical intervention and patient was independent prior to this and would improve her quality of life. Patient is willing to proceed and plans on orthopedic intervention on 05/02/2024. Chest x-ray shows no acute cardiopulmonary process, hip x-ray shows abnormal appearance of the left femur with lucency through the intertrochanteric region with possible avulsion of the lesser trochanter although highly suspicious for a proximal femur fracture. CT of the hip was performed showing an acute comminuted displaced left intertrochanteric fracture and also of note degenerative changes of the lower lumbar spine. Labs reviewed on admission with a white count of 8.9, hemoglobin 11.3, platelets 322, INR 1.0, sodium 141, potassium 4.0, BUN 24 with a creatinine of 0.74, total bili 0.3, LFTs within normal limits. 05/02/2024 Patient is eval today in follow-up on the medical floor. Indwelling Mobley catheter has been placed. She is currently pending surgical repair with an IM nailing of the left hip fracture. Patient does report that she has having some bloody vaginal discharge states that she has a follow-up down in [place] for thi s. 05/03/2024 Was evaluated in follow-up on the medical floor. Indwelling Mobley catheter remains in place. She is postoperative day #1 left hip IM nailing. She did get up and work with physical therapy although states that she was having significant pain to her left hip and this was difficult for her. She is anticipating to be discharged to rehab and this will likely not happen until Sunday. REVIEW OF SYSTEMS: CONSTITUTIONAL: No fever, no malaise,. CARDIOVASCULAR: No chest pain, no palpitations, no syncope. PULMONARY: No reports of shortness of breath or cough GASTROINTESTINAL: No diarrhea, no nausea, no vomiting, no abdominal pain. NEUROLOGICAL: No headaches, reports of weakness, inability to ambulate and left hip pain unless not moving PHYSICAL EXAMINATION: GENERAL: The patient is alert and oriented x3, elderly appearing, well-developed HEENT: Pupils are round and equally reacting to light. EOMI. No scleral icterus. No conjunctival pallor. Normocephalic, atraumatic. No pharyngeal erythema. No thyromegaly. CARDIOVASCULAR: S1 and S2 present. No murmurs, rubs, or gallops. PULMONARY: Diminished breath sounds bilaterally otherwise clear to auscultation with no wheezing or rhonchi noted ABDOMEN: Soft, thin, nontender, nondistended, normoactive bowel sounds. No palpable organomegaly. MUSCULOSKELETAL: No joint swelling or deformity. EXTREMITIES: No cyanosis, clubbing, or pedal edema. Left lower extremity mildly externally rotated and shortened with positive pulses noted NEUROLOGICAL: Gross neurological examination did not reveal any focal deficits. Diffusely weak SKIN: No rashes. Assessment and plan Left intertrochanteric fracture with a large lesser trochanteric fragment status post mechanical fall and landing on her hip patient is postoperative left hip IM nailing History of hypertension History of hyperlipidemia History of hypothyroidism History of loop recorder placement with Dr. Graves earlier this year GI prophylaxis DVT prophylaxis Full Code Plan Patient admitted under orthopedic services and tentatively scheduled for surgical intervention on 05/02/2024 Medications reviewed and appropriate medications resumed. Patient takes Norvasc 10 mg daily although will hold for now to evaluate for any postoperative hypotension, Continue to hold possible to resume tomorrow. Pain management per orthopedic service although strongly recommend limiting narcotics given patient's age. Will add Toradol and also recommend Tylenol as needed Will await surgical report and patient will need PT/OT therapy evaluation and patient reports she most likely will be going to rehab and is agreeable Patient is considered a low risk for surgical intervention and this would improve her quality of life as patient was independent prior to this fall. Thank you for this consultation and we will continue to follow with orthopedics during hospitalization The impression and plan of care has been dictated by Kailey Franks, Nurse Practitioner as directed. Dr. Seema MD I have performed a history and physical examination and medical decision making of this patient, discussed the same with the dictator, and agree with the dictators assessment and plan as written, documented as a scribe. Based on total visit time, I have performed more than 50% of this visit. Objective - Vital Signs Vital signs: Vital Signs Temp 98.3 F 05/03/24 00:35 Pulse 67 05/03/24 00:35 Resp 16 05/03/24 00:35 BP 140/62 05/03/24 00:35 Pulse Ox 97 05/03/24 00:35 FiO2 Intake & Output 05/02/24 05/03/24 05/03/24 18:59 06:59 18:59 Intake Total 1750 520 Output Total 50 800 Balance 1700 -280 Intake: IV 1300 Intake, IV Titration 450 Amount Sodium Chloride 0.9% 1, 400 000 ml @ 50 mls/hr IV . Q20H JESS Rx#:[id number] ceFAZolin 2 gm In Sodium 50 Chloride 0.9% 50 ml @ 100 mls/hr IVPB Q8H JESS Rx#: [id number] Oral 520 Output: Urine 800 Estimated Blood Loss 50 Other: Voiding Method Indwelling Catheter Indwelling Catheter - Labs CBC & Chem 7: 05/02/24 17:38 05/01/24 06:20 Labs: Abnormal Lab Results - Last 24 Hours (Table) 05/02/24 Range/Units 17:38 WBC 10.40 H (4.50-10.00) X 10*3/uL RBC 3.16 L (4.10-5.20) X 10*6/uL Hgb 9.9 L (12.0-15.0) g/dL Hct 31.3 L (37.2-46.3) % MCV 99.1 H (80.0-97.0) FL MCHC 31.6 L (32.0-37.0) g/dL MPV 9.4 L (9.5-12.2) FL Immature Gran # 0.06 H (0.00-0.04) X 10*3/uL Neutrophils # 8.31 H (1.80-7.70) X 10*3/uL Assessment and Plan Time with Patient: Less than 30
--- NOTE | 2024-05-04 08:00 | P.PN ---
Subjective Progress Note Date: 05/04/24 This is an 89-year-old female who is status post closed reduction and intramedullary nailing of the left hip. This is postoperative day #2 patient is seen and evaluated at bedside today. Patient states that her pain is well- controlled and she denies any new complaints today. Objective - Vital Signs Vital signs: Vital Signs Temp 98 F 05/04/24 00:47 Pulse 67 05/04/24 00:47 Resp 18 05/04/24 00:47 BP 144/54 05/04/24 00:47 Pulse Ox 91 L 05/04/24 00:47 FiO2 Intake & Output 05/03/24 05/04/24 05/04/24 18:59 06:59 18:59 Output Total 800 500 Balance -800 -500 Output: Urine 800 500 Other: Voiding Method Indwelling Catheter - Exam Vital signs are stable. Patient is in no acute distress and is alert and oriented 3. Calf is soft and nontender to palpation. Dressing is clean, dry, and intact. Patient has full foot and ankle motion without pain or difficulty. Sensation intact. Neurovascular status and circulatory status are intact. - Labs CBC & Chem 7: 05/02/24 17:38 05/01/24 06:20 Assessment and Plan Assessment: Status post closed reduction and intramedullary nailing of the left hip (1) Fall Current Visit: Yes Status: Acute Code(s): W19.XXXA - UNSPECIFIED FALL, INITIAL ENCOUNTER SNOMED Code(s): 0181690 (2) Intertrochanteric fracture of left hip Current Visit: Yes Status: Acute Code(s): S72.142A - DISPLACED INTERTROCHANTERIC FRACTURE OF LEFT FEMUR, INIT SNOMED Code(s): 233632933 Plan: Continue routine postop care and pain control. Continue anticoagulation. Toe-touch weightbearing with a walker. Leave dressing in place for 7 days. Appreciate input from internal medicine. Anticipate discharge to [facility] in the next 24-48 hours.
[2024-05-04 10:22] LABS: Blood Urea Nitrogen 12.7 mg/dL (9.0-27.0); Carbon Dioxide 23.8 mmol/L (21.6-31.8); Chloride 107 mmol/L (96-109); Glucose 105 mg/dL (70-110); Potassium 3.5 mmol/L (3.5-5.5); Sodium 139 mmol/L (135-145)
[2024-05-04] MEDS: amLODIPine 10 MG TAB PO SCH (11:04)
--- NOTE | 2024-05-04 13:43 | XR ---
EXAMINATION TYPE: XR chest 1V portable DATE OF EXAM: 05/04/2024 Comparison: 04/30/2024 Clinical History: 89-year-old female hypoxia Findings: Loop recorder device projects along the left heart margin. Heart mildly enlarged. Hyperinflation with biapical pleural parenchymal opacities. New small to moderate bilateral pleural effusions with bibas ilar opacities. Impression: COPD with new bilateral [id number] pleural effusions with adjacent atelectasis and/or consolid ation. Consider sequela of CHF. [facility], , 05/04/2024 1:40 PM
[2024-05-04 14:42] LABS: Basophils % (A) 1 %; Eosinophils # (A) 0.3 k/uL (0-0.7); Eosinophils % (A) 3 %; HCT 30.1 % (34.0-46.0); HGB 9.7 gm/dL (11.4-16.0); Lymphocytes # (A) 1.6 k/uL (1.0-4.8); Lymphocytes % (A) 20 %; MCH 30.1 pg (25.0-35.0); MCHC 32.1 g/dL (31.0-37.0); MCV 93.8 fL (80.0-100.0); Mean Platelet Volume 7.2; Monocytes # (A) 0.4 k/uL (0-1.0); Monocytes % (A) 5 %; Neutrophils # (A) 5.7 k/uL (1.3-7.7); Neutrophils % (A) 71 %; Platelet Count 312 k/uL (150-450); RBC 3.21 m/uL (3.80-5.40); RDW 13.6 % (11.5-15.5); WBC 8.1 k/uL (3.8-10.6)
--- NOTE | 2024-05-04 21:12 | P.PN ---
Subjective Progress Note Date: 05/04/24 This is a very pleasant 89-year-old female who was admitted under orthopedic services status post mechanical fall from standing while in the home. Patient lost her balance and landed on her left hip and was unable to ambulate. Patient daughter who lives with her called ambulance and was brought to the hospital for further evaluation. Patient reports she follows with Dr. Mercedes in the outpatient setting with a past medical history of hypertension, hyperlipidemia, hypothyroidism. Patient also noted to have a loop recorder that she reports was received by Dr. Graves earlier this year and has a follow-up appointment later in the next 2 months. Patient did undergo recent stress testing in October which was normal and would consider this patient a low risk for surgical intervention and patient was independent prior to this and would improve her quality of life. Patient is willing to proceed and plans on orthopedic intervention on 05/02/2024. Chest x-ray shows no acute cardiopulmonary process, hip x-ray shows abnormal appearance of the left femur with lucency through the intertrochanteric region with possible avulsion of the lesser trochanter although highly suspicious for a proximal femur fracture. CT of the hip was performed showing an acute comminuted displaced left intertrochanteric fracture and also of note degenerative changes of the lower lumbar spine. Labs reviewed on admission with a white count of 8.9, hemoglobin 11.3, platelets 322, INR 1.0, sodium 141, potassium 4.0, BUN 24 with a creatinine of 0.74, total bili 0.3, LFTs within normal limits. 05/02/2024 Patient is eval today in follow-up on the medical floor. Indwelling Velázquez catheter has been placed. She is currently pending surgical repair with an IM nailing of the left hip fracture. Patient does report that she has having some bloody vaginal discharge states that she has a follow-up down in [place] for thi s. 05/03/2024 Was evaluated in follow-up on the medical floor. Indwelling Velázquez catheter remains in place. She is postoperative day #1 left hip IM nailing. She did get up and work with physical therapy although states that she was having significant pain to her left hip and this was difficult for her. She is anticipating to be discharged to rehab and this will likely not happen until Sunday. 05/04/2024 Patient is evaluated today in follow up postoperative day #2 left hip IM nailing. She is sitting up in the chair today, no acute complaints. States it feels like she cannot bear weight on her left leg, scared it will give out. Blood work is essentially unremarkable. Hemoglobin 9.7. REVIEW OF SYSTEMS: CONSTITUTIONAL: No fever, no malaise,. CARDIOVASCULAR: No chest pain, no palpitations, no syncope. PULMONARY: No reports of shortness of breath or cough GASTROINTESTINAL: No diarrhea, no nausea, no vomiting, no abdominal pain. NEUROLOGICAL: No headaches, reports of weakness, inability to ambulate and left hip pain unless not moving PHYSICAL EXAMINATION: GENERAL: The patient is alert and oriented x3, elderly appearing, well-developed HEENT: Pupils are round and equally reacting to light. EOMI. No scleral icterus. No conjunctival pallor. Normocephalic, atraumatic. No pharyngeal erythema. No thyromegaly. CARDIOVASCULAR: S1 and S2 present. No murmurs, rubs, or gallops. PULMONARY: Diminished breath sounds bilaterally otherwise clear to auscultation with no wheezing or rhonchi noted ABDOMEN: Soft, thin, nontender, nondistended, normoactive bowel sounds. No palpable organomegaly. MUSCULOSKELETAL: No joint swelling or deformity. EXTREMITIES: No cyanosis, clubbing, or pedal edema. Dressing intact left hip. NEUROLOGICAL: Gross neurological examination did not reveal any focal deficits. Diffusely weak SKIN: No rashes. Assessment and plan Left intertrochanteric fracture with a large lesser trochanteric fragment status post mechanical fall and landing on her hip patient is postoperative left hip IM nailing History of hypertension History of hyperlipidemia History of hypothyroidism History of loop recorder placement with Dr. Graves earlier this year GI prophylaxis DVT prophylaxis Full Code Plan Amlodipine has been resumed, blood pressure in the 140s systolic. Continue to encourage IS 10 x an hour while awake Discussed with patient that velázquez can come out when she is up ambulating. Pain management per orthopedic service although strongly recommend limiting narcotics given patient's age. Will add Toradol and also recommend Tylenol as needed PT/OT evaluation and patient reports she most likely will be going to rehab and is agreeable Patient is considered a low risk for surgical intervention and this would improve her quality of life as patient was independent prior to this fall. Thank you for this consultation and we will continue to follow with orthopedics during hospitalization The impression and plan of care has been dictated by Kailey Franks Nurse Practitioner as directed. Dr. Seema MD I have performed a history and physical examination and medical decision making of this patient, discussed the same with the dictator, and agree with the dictators assessment and plan as written, documented as a scribe. Based on total visit time, I have performed more than 50% of this visit. Objective - Vital Signs Vital signs: Vital Signs Temp 98.2 F 05/04/24 07:19 Pulse 57 L 05/04/24 07:19 Resp 18 05/04/24 07:19 BP 141/62 05/04/24 07:19 Pulse Ox 90 L 05/04/24 07:19 FiO2 Intake & Output 05/03/24 05/04/24 05/04/24 18:59 06:59 18:59 Output Total 800 500 Balance -800 -500 Output: Urine 800 500 Other: Voiding Method Indwelling Catheter - Labs CBC & Chem 7: 05/04/24 14:16 05/04/24 06:11 Assessment and Plan Time with Patient: Less than 30
--- NOTE | 2024-05-05 08:31 | P.DS ---
Providers Date of admission: 04/30/24 22:20 Expected date of discharge: 05/05/24 Attending physician: Mario Mcpherson Consults: 04/30/24 22:16 Consult Physician Routine Consulting Provider: Ismael Carter Consult Reason/Comments: medical management Do you want consulting provider notified?: Yes Primary care physician: Codi Mercedes - Discharge Diagnosis(es) (1) Fall Current Visit: Yes Status: Acute (2) Intertrochanteric fracture of left hip Current Visit: Yes Status: Acute Hospital Course: This is an 89-year-old female who is admitted to [facility] on 04/30/2024 after falling and sustaining injury to the left hip. On exam and x- ray in the emergency department he is found to have an intertrochanteric fracture of the left hip. He is admitted to our service for surgical intervention and care. Patient is taken to surgery for close reduction and insertion of intertrochanteric nail of the left hip. The procedure was performed without complication or sequelae. The patient is doing fairly well postoperatively. Vital signs and labs are stable on postoperative day # 3. Patient is discharged to inpatient rehab in good condition. Please see med rec for accurate list of discharge medications. Patient Condition at Discharge: Stable Plan - Discharge Summary New Discharge Prescriptions: New Aspirin [Adult Low Dose Aspirin EC] 81 mg PO BID #1 tab Sennosides-Docusate Sodium [Senokot-S] 1 tab PO BID #60 tablet HYDROcodone/APAP 5-325MG [[place] 5-325] 1 - 2 tab PO Q6HR PRN #32 tab PRN Reason: Pain Ondansetron Odt [Zofran Odt] 4 mg PO Q8HR PRN #14 tab PRN Reason: Nausea No Action Levothyroxine Sodium [Synthroid] 112 mcg PO MOTUWETHFRSA Omeprazole [PriLOSEC] 20 mg PO AC-BRKFST amLODIPine [Norvasc] 10 mg PO DAILY #30 tab Discharge Medication List Levothyroxine Sodium [Synthroid] 112 mcg PO MOTUWETHFRSA 03/30/23 [History] amLODIPine [Norvasc] 10 mg PO DAILY #30 tab 04/04/23 [Rx] Omeprazole [PriLOSEC] 20 mg PO AC-BRKFST 05/01/24 [History] Aspirin [Adult Low Dose Aspirin EC] 81 mg PO BID #1 tab 05/02/24 [Rx] HYDROcodone/APAP 5-325MG [[place] 5-325] 1 - 2 tab PO Q6HR PRN #32 tab 05/02/24 [Rx] Ondansetron Odt [Zofran Odt] 4 mg PO Q8HR PRN #14 tab 05/02/24 [Rx] Sennosides-Docusate Sodium [Senokot-S] 1 tab PO BID #60 tablet 05/02/24 [Rx] Follow up Appointment(s)/Referral(s): Stacey Campa PAC [PHYSICIAN [employer]ER] - 3 Weeks Codi Mercedes MD [Primary Care Provider] - 1-2 days Activity/Diet/Wound Care/Special Instructions: Toe-touch weightbearing with walker. May shower. Keep Optifoam dressing intact 7 days postop.
[2024-05-05] MEDS: LEVOTHYROXINE 112 MCG TAB PO ONE (09:14)
[2024-05-05 10:13] VITALS: BP 146/60; PULSE 63; RESP 17; TEMP 98.2
--- NOTE | 2024-05-06 00:13 | PN ---
PROGRESS NOTE DATE OF SERVICE: 05/05/2024 SUBJECTIVE: This is an 89-year-old woman, who was admitted after left intertrochanteric fracture surgery, is now being closely monitored. No chest pain. No palpitations. ECF rehab is being planned. OBJECTIVE: VITAL SIGNS: Pulse 63, blood pressure 142/60, respirations 17. CHEST: Clear. CARDIOVASCULAR: S1, S2. ABDOMEN: Soft. LEGS: Status post surgery. LABORATORY DATA: Reviewed. ASSESSMENT: 1. Status post left hip surgery. 2. Hypertension. 3. Hyperlipidemia. 4. Hypothyroidism. RECOMMENDATIONS: Recommend to continue current management. Continue symptomatic treatment. Resume home medications. Follow with primary physician after discharge. Rest of the recommendations include DVT prophylaxis per Orthopedic Surgery. MMODL / IJN: [id number] /
== END 2024-05-05 14:55 | DRG 482 ==
LOC: EC 19:37 → 4SSUR 22:20
PROVIDERS: ADMIT Orthopaedic Surgery; ATTEND Orthopaedic Surgery
PROC: 0QSC06Z Reposition Left Lower Femur with Intramedullary Internal Fixation Device, Open Approach (ICD-10-PCS; principal; 2024-05-02 14:35)
DX: S72.142A Displaced intertrochanteric fracture of left femur, initial encounter for closed fracture (principal); E03.9 Hypothyroidism, unspecified; I10 Essential (primary) hypertension; E78.5 Hyperlipidemia, unspecified; N89.8 Other specified noninflammatory disorders of vagina; M47.816 Spondylosis without myelopathy or radiculopathy, lumbar region; W01.0XXA Fall on same level from slipping, tripping and stumbling without subsequent striking against object, initial encounter; Y92.008 Other place in unspecified non-institutional (private) residence as the place of occurrence of the external cause; Z79.890 Hormone replacement therapy; Z79.899 Other long term (current) drug therapy; Z95.818 Presence of other cardiac implants and grafts
CPT/HCPCS: 36415; 71045; 73501; 73502; 80048; 80053; 85025; 85610; 85730; 93005; 96361; 96374; 99285